=== PATIENT | female | born 1955 | race African-American/Black ===

== ENCOUNTER 2017-09-05 13:46 | Inpatient (IN) | payer MEDICAID ==
[2017-09-05] MEDS ORDERED: Aspirin 325 mg EC PO ONE (14:28)
[2017-09-05] MEDS ORDERED: Pantoprazole 40 mg EC Tab PO STA (14:29)
[2017-09-05] MEDS ORDERED: Clindamycin 600mg/50mL 600 MG/50 ML BAG IV ONE (14:30)
[2017-09-05] MEDS ORDERED: Levofloxacin 500mg/100mL 500 MG/100 ML BAG IV ONE ×2 (14:30→15:56)
[2017-09-05] MEDS ORDERED: Piperacillin Sodium/Tazobact 2.25 gm Vial IV ONE (14:44)
[2017-09-05 14:51] LABS: % BASOPHILS 0.9 % (0.0-2.0); % EOSINOPHILS 3.3 % (0.0-5.0); % MONOCYTES 7.5 % (2.0-10.0); % NEUTROPHILS 43.3 % (40.0-80.0); BASOPHILE ABSOLUTE 0.1 Th/cumm (0-0.2); EOSINOPHILE ABSOLUTE 0.2 Th/cmm (0.1-0.4); HEMATOCRIT 35.2 % (41.0-60); HEMOGLOBIN 11.2 gm/dL (12-16); LYMPHOCYTE ABSOLUTE 2.9 Th/cmm (1.5-3.0); MEAN CELL VOLUME 99.8 fl (81-100); MEAN CORPUSCULAR HEMOGLOBIN 31.6 pg (27.0-31.0); MEAN CORPUSCULAR HGB CONC 31.7 pg (28.0-36.0); MONOCYTE ABSOLUTE 0.5 Th/cmm (0.3-1.0); NEUTROPHILE ABSOLUTE 2.9 Th/cmm (1.8-8.0); PLATELET COUNT 98 Th/cmm (150-400); RED BLOOD COUNT 3.53 Mil/cmm (3.80-5.10); RED CELL DISTRIBUTION WIDTH 14.5 % (11.5-20.0); WHITE BLOOD COUNT 6.6 Th/cmm (4.8-10.8)
--- NOTE | 2017-09-05 14:55 | Diagnostic Imaging Report ---
CHEST X-RAY: AP view INDICATION: Sepsis COMPARISON: None FINDINGS: Chronic lung changes are seen with no focal consolidation or effusions. Heart size is normal. Multiple chronic appearing right rib fractures are noted. Atherosclerosis is noted. Spinal scoliosis is noted. IMPRESSION: Chronic lung changes with no focal consolidation identified Atherosclerotic vascular disease. Multiple old right rib fractures. No evidence of pneumothorax.
[2017-09-05] MEDS ORDERED: Clindamycin 150 mg/mL 4mL Vial ONE ×2 (15:32→21:43)
[2017-09-05] MEDS ORDERED: Pantoprazole 40 mg EC Tab PO ONE (15:32)
[2017-09-05 15:48] LABS: CHOLESTEROL 71 mg/dL (<200); HDL -HIGH DENSITY LIPOPROTEIN 42 mg/dL (23-92); TRIGLYCERIDES 62 mg/dL (<150)
[2017-09-05 15:51] LABS: ALB/GLOB RATIO 0.5 (1.0-1.8); ALBUMIN 2.8 gm/dL (3.7-5.3); ALKALINE PHOSPHATASE 129 U/L (34-104); ANION GAP 11.5 (7.0-16.0); BILIRUBIN,TOTAL 0.3 mg/dL (0.3-1.0); BUN - UREA NITROGEN 18 mg/dL (7-25); CALCIUM SERUM 8.5 mg/dL (8.6-10.3); CARBON DIOXIDE 19.4 mEq/L (21.0-31.0); CHLORIDE 107 mEq/L (98-107); GFR AFRICAN-AMERICAN > 60.0 ml/min (>90); GFR NON AFRICAN-AMERICAN 59.3 ml/min; GLUCOSE 105 mg/dL (70-105); POTASSIUM SERUM 4.9 mEq/L (3.5-5.1); SGOT 21 U/L (13-39); SGPT/ALT 8 U/L (7-52); SODIUM SERUM 133 mEq/L (136-145); TOTAL PROTEIN,SERUM 8.2 gm/dL (6.0-8.3)
--- NOTE | 2017-09-05 16:26 | ER Physician Documentation ---
DATE OF SERVICE: 09/05/2017 The history was taken by talking to the patient. The patient was sent from [facility] by Dr. Guardado. The patient has a gangrene in the left foot and hence the patient was sent over here. The patient has systemic lupus erythematosus and other diagnoses that will be mentioned below. HISTORY OF PRESENT ILLNESS: The patient said that she has systemic lupus erythematosus, leading to amputation of both her upper arm 2 years ago. A few months apart she had amputation in the right above knee that was done many years ago and she has gangrene infection, cellulitis in the left leg. There is a second toe gangrene is present. The patient is known to have hypertension. She has systemic lupus erythematosus. She was triaged by the nurse. She carries herself many diagnoses and I think instead of repeating this now and then in the final diagnoses, I would put it most of the time in the final diagnoses except that she has hyperlipidemia, anxiety disorder, GERD, polyneuropathy as well as chronic pain type syndrome. REVIEW OF SYSTEMS: EYES: No history of double vision, blurring blindness. CENTRAL NERVOUS SYSTEM: No history of TIA, stroke, encephalitis, meningitis. PULMONARY: No history of pneumonia, TB, pulmonary embolism, COPD, emphysema, bronchitis. 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 CARDIAC: She does not have any myocardial infarction, rheumatic fever, valvular heart disease, pericardial disease, cardiomyopathy. She has pain syndrome for which she takes fentanyl patch 25 mcg every 72 hours for pain management. GENITOURINARY: No burning, frequency, dysuria. She said she had a G-tube before, but now there is no G-tube. No history of urinary tract infection. ENDOCRINE: Liver veloz, the patient has no liver disease. No history of cirrhotic liver. The patient has no ascites. All other systems review essentially as negative. CURRENT MEDICATIONS: Include calcium 500 mg 1 tablet p.r.n., clindamycin 150 mg 2 capsules t.i.d. for 10 days for left foot infection plus fentanyl patch 25 mcg every 72 hours for pain management. She takes Restoril 15 mg p.o. at bedtime for insomnia. She takes basic metabolic panel every Tuesday that has been ordered for her. PHYSICAL EXAMINATION: GENERAL: The patient appears to be awake, alert, oriented, not in any acute cardiorespiratory distress. She is awake. She is talking, she walks with the help of the cane. She has a tinea vesicular over the body. She has lupus erythematosus. She has gangrene in both hands below the elbows and both upper extremities and in the right lower extremity above knee amputation. CHEST: Clear. Trachea being central. Fairly good air entry in both lungs. HEART: Reveals normal heart sounds. No fourth heart sounds. Second heart sound is physiologically split. Third heart sound is absent. ABDOMEN: Soft, benign and negative. CENTRAL NERVOUS SYSTEM: Within normal limits. CLINICAL IMPRESSION: The patient has presented with gangrene in the left second toe and the patient also has a cellulitis with discharges around that area, probably that needs to be Gram stain and cultured. Her other diagnoses include systemic lupus erythematosus, unspecified. She has diabetes mellitus without any complication. She has chronic pain syndrome. She has atherosclerotic heart disease of [place] coronary arteries without angina pectoris, unspecified viral hepatitis C. She has partial traumatic amputation of the left knee. Right lower leg encounter gangrene, not elsewhere notified. She has anemia, unspecified, hyperlipidemia, unspecified, anxiety disorder, unspecified. Gastroesophageal reflux disease, esophagitis, polyneuropathy, unspecified; nicotine dependence. She used to smoke 2 cigarettes a day in the past. The patient has been taking Neurontin 300 mg tablet by mouth 3 times a day plus [place] tablets as needed, Protonix tablets by mouth, Tylenol for pain, Vitamin C tablet, zinc sulfate tablet. She has a foot cradle for wound management. The patient is also taking atorvastatin, calcium tablet, clonidine tablet, Dulcolax tablet, ferrous sulfate tablet, etc. The patient has atherosclerotic heart disease. She has dyslipidemia. She has GERD type symptoms, and viral hepatitis. She never had any hepatic, she never was drinking alcohol and never went into hepatic or delirium tremens. Partial traumatic amputation to the knee level, right lower leg, initial encounter. She has anemia. She has anxiety disorder, GERD, polyneuropathy and nicotine dependence. This is the first report, and the second report once we get the report of the labs, etc. JOB# [id number]
[2017-09-05 17:43] LABS: URINE BILIRUBIN NEGATIVE (NEGATIVE); URINE BLOOD SMALL (NEGATIVE); URINE GLUCOSE (UA) NEGATIVE (NEGATIVE); URINE KETONE NEGATIVE (NEGATIVE); URINE LEUKOCYTE ESTERASE SMALL (NEGATIVE); URINE MICROSCOPIC INDICATED? YES; URINE NITRATE NEGATIVE (NEGATIVE); URINE PH 6.5 (4.6 - 8.0); URINE PROTEIN TRACE mg/dL (NEGATIVE); URINE SOURCE CLEAN C; URINE UROBILINOGEN 0.2 E.U./dL (0.2 - 1.0)
[2017-09-05 17:47] LABS: URINE CLARITY HAZY (CLEAR); URINE COLOR YELLOW
[2017-09-05 17:50] LABS: URINE BACTERIA FEW /hpf (NONE SEEN); URINE EPITHELIAL CELLS OCCASIONAL /lpf (FEW)
[2017-09-05] MEDS: HYDROmorphone 2 mg/mL 1mL Vial IVP PRN (20:53)
[2017-09-05] MEDS ORDERED: Magnesium Hydroxide (MOM) 30 mL UDC PO PRN (20:59)
[2017-09-05] MEDS ORDERED: Albuterol Nebulizer 2.5mg/3mL HHN PRN (20:59)
[2017-09-05] MEDS ORDERED: Fluticasone Propionate 0.05mg/Actuation 16gm Nasal Spray NS PRN (20:59)
[2017-09-05] MEDS ORDERED: MELATONIN 1 MG PO SCH (21:00)
--- NOTE | 2017-09-05 21:22 | History and Physical ---
History of Present Illness - HPI Chief Complaint: left foot non healing wound ozzing, foul odor HPI: This is a 62 year old female who is a resident of [facility] who has a history of left foot wound that has been non healing associated with food odor and drainage. Vital Signs: Last Vital Signs Temp 97.2 F 09/05/17 20:25 Pulse 85 09/05/17 20:25 Resp 19 09/05/17 20:25 BP 150/44 09/05/17 20:25 Pulse Ox 100 09/05/17 19:51 Past Medical History Other History: sle cellulitis left leg gangrene gerd anxiety hyperlipidemia anxiety polyneuropathy chronic pain syndrome - Past Surgical History Past Surgical History: Other (amputation upper extremity rbka) Family Medical History - Family Member Mother History Unknown: Yes Social History Smoke: No Alcohol: None Drugs: None Lives: Residential - Medications Home Medications: Home Medication Medication Instructions Recorded Type Acetaminophen [Tylenol] 650 mg PO DAILY 09/05/17 History Acetaminophen [Tylenol] 650 mg PO Q4HR PRN 09/05/17 History Albuterol Nebulizer 2.5mg/3mL 2.5 mg IH Q6HR PRN 09/05/17 History [Albuterol Neb UD*] Ascorbic Acid [Vitamin C] 500 mg PO DAILY 09/05/17 History Atorvastatin Calcium [Lipitor] 40 mg PO HS 09/05/17 History Bisacodyl [Dulcolax 10 Mg Supp] 10 mg RC DAILY PRN 09/05/17 History Calcium Carbonate [Calcium] 1 tab PO DAILY 09/05/17 History Clonidine HCl [Catapres] 0.1 mg PO DAILY 09/05/17 History Docusate Sodium [Dok] 100 mg PO DAILY 09/05/17 History Ferrous Sulfate [Iron] 1 tab PO DAILY 09/05/17 History Fluticasone Propionate Nasal 1 spr NS DAILY PRN 09/05/17 History [Flonase] Gabapentin [Neurontin] 300 mg PO TID 09/05/17 History Hydrocodone/APAP 10 mg/325 mg 1 tab PO Q8H PRN 09/05/17 History [[place] 10 mg/325 mg] Magnesium Hydroxide [Milk of 30 ml PO HS PRN 09/05/17 History Magnesia] Melatonin 1 mg PO HS 09/05/17 History Morphine Sulfate 15 mg PO Q12H 09/05/17 History Multivitamin w/ Minerals 1 tab PO DAILY 09/05/17 History [Theragran M] Pantoprazole Sodium 40 mg PO DAILY 09/05/17 History Temazepam [Restoril*] 15 mg PO HS 09/05/17 History Zinc Sulfate 220 mg PO DAILY 09/05/17 History fentaNYL 25 mcg/hr [Duragesic 25 25 mcg TD Q72HR 09/05/17 History mcg/hr Tdm Patch] hydrOXYzine [Atarax*] 25 mg PO Q8HR PRN 09/05/17 History - Allergies Allergies/Adverse Reactions: Allergies Allergy/AdvReac Type Severity Reaction Status Date / Time No Known Allergies Allergy Verified 09/05/17 14:55 Review of Systems - Review of Systems Constitutional: Report: No Significant Eyes: Report: No Significant ENT: Report: No Significant Respiratory: Report: No Significant Cardiovascular: Report: No Significant Gastrointestinal: Report: No Significant Genitourinary: Report: No Significant Musculoskeletal: Report: No Significant Neurological: Report: No Significant Physical Exam - Physical Exam HEENT: Report: Ears Nose Throat within normal limits Neck: Report: Within normal limits Cardiovascular Systems: Report: +s1/s2 noted, Regular, Rate and Rhythm Respiratory: Report: Breath Sounds are within normal limits Back: Report: Inspection of back is within normal limits. Extremities: Report: Non-tender to palpation. - Assessment Assessment: Current Active Problems Problem Status Onset LEFT LOWER EXTREMITY GANGRENE Acute sle gerd anxiety hyperlipidemia anxiety polyneuropathy chronic pain syndrome - Plan Plan: ivabx wound/surgical consult continue current orders
[2017-09-05] MEDS ORDERED: Piperacillin Sodium/Tazobact 3.375 gm Vial IV ONE (21:43)
[2017-09-05] MEDS: Clindamycin 600mg/50mL 600 MG/50 ML BAG IV SCH (22:40)
[2017-09-05] MEDS: Atorvastatin Calcium 10 MG TAB PO SCH (23:24)
[2017-09-06] MEDS: HYDROmorphone 2 mg/mL 1mL Vial IVP PRN ×2 (02:52→13:41)
[2017-09-06 03:20] VITALS: BP 152/45
[2017-09-06] MEDS ORDERED: Pneumococcal Vaccine 0.5 mL Vial IM ONE (03:31)
[2017-09-06] MEDS ORDERED: Clindamycin 150 mg/mL 4mL Vial ONE (04:50)
[2017-09-06] MEDS ORDERED: Piperacillin Sodium/Tazobact 3.375 gm Vial IV ONE (04:50)
[2017-09-06] MEDS: Clindamycin 600mg/50mL 600 MG/50 ML BAG IV SCH ×3 (05:39→21:09)
[2017-09-06] MEDS ORDERED: VTE Chemical Prophylaxis Screen/Admission MC PRN (08:15)
[2017-09-06] MEDS ORDERED: Probiotic Screen MC PRN (09:15)
[2017-09-06] MEDS: Pantoprazole 40 mg EC Tab PO SCH (09:26)
[2017-09-06] MEDS: Ferrous Sulfate 325 MG TAB PO SCH (09:27)
[2017-09-06] MEDS: Multivitamin w/ Minerals Tab PO SCH (09:27)
[2017-09-06] MEDS: fentaNYL 25 mcg/hr Tdm Patch TD SCH (09:28)
[2017-09-06] MEDS ORDERED: Influenza Vaccine 0.5 mL Syr IM ONE (09:31)
[2017-09-06] MEDS: HYDROmorphone 1 mg/mL 1mL Syr IVP PRN ×2 (09:51→23:08)
--- NOTE | 2017-09-06 11:32 | Diagnostic Imaging Report ---
Left foot 3 views Indication: Gangrene Comparison: none Findings: Osteopenia is noted limiting the examination. There are soft tissue defects and swelling involving the first and second rays. There is suggestion of areas of bony demineralization involving the second phalanges. There may be subtle fractures throughout these regions also. No dislocation. Mild to moderate joint degenerative changes are noted. Generalized soft tissue prominence is noted. Atherosclerosis is noted. Impression: Osteopenia limiting the exam. There are soft tissue defects and areas of soft tissue swelling involving the first and second rays with suggestion of areas of bony mineralization of the second phalanges. Osteomyelitis of the second phalanges cannot be excluded. There may also be subtle fractures of the second phalanges. Please correlate with clinical findings. Consider further assessment of these findings with MRI examination. Mild degenerative changes. In the setting of trauma, if clinical symptoms persist and there is continued concern for an occult fracture, follow up exams in 5-7 days is suggested.
--- NOTE | 2017-09-06 12:33 | Internal Medicine Prog Note ---
Internal Medicine Subjective - Subjective Service Date: 09/06/17 Patient seen and examined:: with staff Patient is:: awake, verbal Per staff patient has:: tolerating meds Internal Medicine Objective - Results Result Diagrams: 09/05/17 15:00 09/05/17 15:00 Recent Labs: Laboratory Last Values WBC 6.6 Th/cmm (4.8-10.8) 09/05/17 15:00 RBC 3.53 Mil/cmm (3.80-5.10) L 09/05/17 15:00 Hgb 11.2 gm/dL (12-16) L 09/05/17 15:00 Hct 35.2 % (41.0-60) L 09/05/17 15:00 MCV 99.8 fl (81-100) 09/05/17 15:00 MCH 31.6 pg (27.0-31.0) H 09/05/17 15:00 MCHC Differential 31.7 pg (28.0-36.0) 09/05/17 15:00 RDW 14.5 % (11.5-20.0) 09/05/17 15:00 Plt Count 98 Th/cmm (150-400) L 09/05/17 15:00 MPV 8.0 fl 09/05/17 15:00 Neutrophils % 43.3 % (40.0-80.0) 09/05/17 15:00 Lymphocytes % 45.0 % (20.0-50.0) 09/05/17 15:00 Monocytes % 7.5 % (2.0-10.0) 09/05/17 15:00 Eosinophils % 3.3 % (0.0-5.0) 09/05/17 15:00 Basophils % 0.9 % (0.0-2.0) 09/05/17 15:00 Sodium 133 mEq/L (136-145) L 09/05/17 15:00 Potassium 4.9 mEq/L (3.5-5.1) 09/05/17 15:00 Chloride 107 mEq/L (98-107) 09/05/17 15:00 Carbon Dioxide 19.4 mEq/L (21.0-31.0) L 09/05/17 15:00 Anion Gap 11.5 (7.0-16.0) 09/05/17 15:00 BUN 18 mg/dL (7-25) 09/05/17 15:00 Creatinine 1.0 mg/dL (0.6-1.2) 09/05/17 15:00 Est GFR ( Amer) > 60.0 ml/min (>90) 09/05/17 15:00 Est GFR (Non-Af Amer) 59.3 ml/min 09/05/17 15:00 BUN/Creatinine Ratio 18.0 09/05/17 15:00 Glucose 105 mg/dL (70-105) 09/05/17 15:00 Whole Bld Lactic Acid 0.81 mmol/L (0.60-1.99) 09/05/17 15:00 Calcium 8.5 mg/dL (8.6-10.3) L 09/05/17 15:00 Magnesium 2.0 mg/dL (1.9-2.7) 09/05/17 15:00 Total Bilirubin 0.3 mg/dL (0.3-1.0) 09/05/17 15:00 AST 21 U/L (13-39) 09/05/17 15:00 ALT 8 U/L (7-52) 09/05/17 15:00 Alkaline Phosphatase 129 U/L (34-104) H 09/05/17 15:00 C-Reactive Protein 3.4 mg/dL (0.0-0.9) H 09/05/17 15:00 B-Natriuretic Peptide 158.0 pg/mL (5.0-100.0) H 09/05/17 15:00 Total Protein 8.2 gm/dL (6.0-8.3) 09/05/17 15:00 Albumin 2.8 gm/dL (3.7-5.3) L 09/05/17 15:00 Globulin 5.4 gm/dL 09/05/17 15:00 Albumin/Globulin Ratio 0.5 (1.0-1.8) L 09/05/17 15:00 Triglycerides 62 mg/dL (<150) 09/05/17 15:00 Cholesterol 71 mg/dL (<200) 09/05/17 15:00 LDL Cholesterol Direct 16 mg/dL (75-193) L 09/05/17 15:00 HDL Cholesterol 42 mg/dL (23-92) 09/05/17 15:00 TSH 1.71 uIU/ml (0.34-5.60) 09/05/17 15:00 Urine Source CLEAN C 09/05/17 14:26 Urine Color YELLOW 09/05/17 14:26 Urine Clarity HAZY (CLEAR) 09/05/17 14:26 Urine pH 6.5 (4.6 - 8.0) 09/05/17 14:26 Ur Specific [place] 1.010 (1.005-1.030) 09/05/17 14:26 Urine Protein TRACE mg/dL (NEGATIVE) 09/05/17 14:26 Urine Glucose (UA) NEGATIVE mg/dL (NEGATIVE) 09/05/17 14:26 Urine Ketones NEGATIVE mg/dL (NEGATIVE) 09/05/17 14:26 Urine Blood SMALL (NEGATIVE) H 09/05/17 14:26 Urine Nitrate NEGATIVE (NEGATIVE) 09/05/17 14:26 Urine Bilirubin NEGATIVE (NEGATIVE) 09/05/17 14:26 Urine Urobilinogen 0.2 E.U./dL (0.2 - 1.0) 09/05/17 14:26 Ur Leukocyte Esterase SMALL (NEGATIVE) H 09/05/17 14:26 Urine RBC 5-10 /hpf (0-5) H 09/05/17 14:26 Urine WBC 6-10 /hpf (0-5) H 09/05/17 14:26 Ur Epithelial Cells OCCASIONAL /lpf (FEW) 09/05/17 14:26 Urine Bacteria FEW /hpf (NONE SEEN) 09/05/17 14:26 - Physical Exam Vitals and I&O: Vital Signs Temp 97.7 F 09/06/17 12:01 Pulse 65 09/06/17 12:01 Resp 17 09/06/17 12:01 BP 145/60 09/06/17 12:01 Pulse Ox 99 09/06/17 12:01 Intake & Output 09/05/17 09/06/17 09/06/17 18:59 06:59 18:59 Intake Total 300 Balance 300 Weight (lbs) 110 lb Intake: Intake, IV Amount 100 Clindamycin 600mg/50mL 50 600 mg In 50 ml @ 100 mls /hr IV Q8HR [facility] Rx#: [id number] Piperacillin Sodium/ 50 Tazobact 3.375 gm In Sodium Chloride 0.9% 50 ml @ 100 mls/hr IV Q6HR [facility] Rx#:[id number] Oral 200 Other: # Voids 2 # Bowel Movements 0 Stool Characteristics Formed Active Medications: Current Medications Acetaminophen (Tylenol) 650 mg PO DAILY [facility] Stop: 11/05/17 08:59 Last Admin: 09/06/17 09:27 Dose: 650 mg Acetaminophen (Tylenol) 650 mg PO Q4HR PRN PRN Reason: Mild Pain or Fever >101 Stop: 11/04/17 20:58 Acetaminophen/Hydrocodone Bitart ([place] 10 Mg/325 Mg) 1 tab PO Q8H PRN PRN Reason: MOD/SEVERE PAIN Stop: 11/04/17 20:58 Albuterol Sulfate (Albuterol 2.5mg/3ml Neb Ud) 2.5 mg HHN Q6HR PRN PRN Reason: sob/WHEEZING/CONGESTION Stop: 11/04/17 20:58 Ascorbic Acid (Vitamin C) 500 mg PO DAILY [facility] Stop: 11/05/17 08:59 Last Admin: 09/06/17 09:27 Dose: 500 mg Atorvastatin Calcium (Lipitor) 40 mg PO HS [facility] Stop: 11/04/17 20:59 Last Admin: 09/05/17 23:24 Dose: 40 mg Bisacodyl (Dulcolax 10 Mg Supp) 10 mg RC DAILY PRN PRN Reason: IF MOM INEFFECTIVE FOR CONSTIP Stop: 11/04/17 20:58 Calcium Carbonate (Os-Won) 500 mg PO DAILY [facility] Stop: 11/05/17 08:59 Last Admin: 09/06/17 09:26 Dose: 500 mg Docusate Sodium (Colace) 100 mg PO DAILY [facility] Stop: 11/05/17 08:59 Last Admin: 09/06/17 09:26 Dose: 100 mg Fentanyl (Duragesic 25 Mcg/Hr Tdm Patch) 1 patch TD Q72HR [facility] PRN Reason: Protocol Stop: 11/05/17 09:59 Last Admin: 09/06/17 09:28 Dose: 1 patch Ferrous Sulfate (Iron) 325 mg PO DAILY [facility] Stop: 11/05/17 08:59 Last Admin: 09/06/17 09:27 Dose: 325 mg Fluticasone Propionate (Flonase) 1 spr NS DAILY PRN PRN Reason: Congestion Stop: 11/04/17 20:58 Gabapentin (Neurontin) 300 mg PO TID [facility] Stop: 11/04/17 20:59 Last Admin: 09/06/17 09:26 Dose: 300 mg Hydromorphone HCl (Dilaudid) 2 mg IVP Q4HR PRN PRN Reason: Pain (Severe) Stop: 11/04/17 20:05 Last Admin: 09/06/17 02:52 Dose: 2 mg Hydromorphone HCl (Dilaudid) 1 mg IVP Q4HR PRN PRN Reason: Pain (Moderate) Stop: 11/04/17 20:05 Last Admin: 09/06/17 09:51 Dose: 1 mg Hydroxyzine HCl (Atarax) 25 mg PO Q8HR PRN; Protocol PRN Reason: Itching Stop: 11/04/17 20:58 Clindamycin Phosphate (Cleocin Pb) 600 mg in 50 mls @ 100 mls/hr IV Q8HR [facility] Stop: 11/04/17 20:59 Last Admin: 09/06/17 05:39 Dose: 100 mls/hr Levofloxacin (Levaquin Pb) 500 mg in 100 mls @ 100 mls/hr IV Q24HR [facility] Stop: 11/05/17 20:59 Piperacillin Sod/Tazobactam (Sod 3.375 gm/ Sodium Chloride) 50 mls @ 100 mls/ hr IV Q6HR [facility] Stop: 11/05/17 00:00 Last Admin: 09/06/17 06:54 Dose: 100 mls/hr Lactobacillus Rhamnosus (Culturelle 15b) 1 each PO DAILY [facility] Stop: 11/06/17 08:59 Magnesium Hydroxide (Milk Of Magnesia) 30 ml PO HS PRN PRN Reason: Constipation Stop: 11/04/17 20:58 Miscellaneous (Zosyn Iv Per Pharmacy) 1 ea MC PRN PRN PRN Reason: PROTOCOL Stop: 11/04/17 20:05 Miscellaneous (Melatonin [Melatonin]) 1 mg PO HS [facility] Stop: 11/04/17 20:59 Miscellaneous (Vte [employer] Prophylaxis Screen/ Admission) 1 ea [facility] PRN PRN PRN Reason: PROTOCOL Stop: 11/05/17 08:14 Miscellaneous (Probiotic Screen) 1 ea MC PRN PRN PRN Reason: PROTOCOL Stop: 11/05/17 09:14 Morphine Sulfate (Morphine Ir) 15 mg PO Q12H [facility] Stop: 11/04/17 20:59 Last Admin: 09/06/17 09:27 Dose: 15 mg Ondansetron HCl (Zofran) 4 mg IV Q6H PRN PRN Reason: Nausea / Vomiting Stop: 11/04/17 20:05 Pantoprazole Sodium (Protonix) 40 mg PO DAILY [facility] Stop: 11/05/17 08:59 Last Admin: 09/06/17 09:26 Dose: 40 mg Temazepam (Restoril) 15 mg PO HS PRN; Protocol PRN Reason: Insomnia Stop: 11/04/17 20:21 Zinc Sulfate (Zinc Sulfate) 220 mg PO DAILY [facility] Stop: 11/05/17 08:59 Last Admin: 09/06/17 09:27 Dose: 220 mg General: alert HEENT: NC/AT, PERRLA Neck: Supple Lungs: CTAB Abdomen: soft, non-tender Neurological: alert Internal Medicine Assmt/Plan - Assessment Assessment: sle gerd anxiety hyperlipidemia anxiety polyneuropathy chronic pain syndrome - Plan Plan: wound care ivabx continue current orders
--- NOTE | 2017-09-06 16:43 | General Progress Note ---
Subjective - Review of Systems Service Date: 09/06/17 Events since last encounter: saw picture in chart but refusing refusing to be examined will try again tomorrow Objective - Results Result Diagrams: 09/05/17 15:00 09/05/17 15:00 Recent Labs: Laboratory Last Values WBC 6.6 Th/cmm (4.8-10.8) 09/05/17 15:00 RBC 3.53 Mil/cmm (3.80-5.10) L 09/05/17 15:00 Hgb 11.2 gm/dL (12-16) L 09/05/17 15:00 Hct 35.2 % (41.0-60) L 09/05/17 15:00 MCV 99.8 fl (81-100) 09/05/17 15:00 MCH 31.6 pg (27.0-31.0) H 09/05/17 15:00 MCHC Differential 31.7 pg (28.0-36.0) 09/05/17 15:00 RDW 14.5 % (11.5-20.0) 09/05/17 15:00 Plt Count 98 Th/cmm (150-400) L 09/05/17 15:00 MPV 8.0 fl 09/05/17 15:00 Neutrophils % 43.3 % (40.0-80.0) 09/05/17 15:00 Lymphocytes % 45.0 % (20.0-50.0) 09/05/17 15:00 Monocytes % 7.5 % (2.0-10.0) 09/05/17 15:00 Eosinophils % 3.3 % (0.0-5.0) 09/05/17 15:00 Basophils % 0.9 % (0.0-2.0) 09/05/17 15:00 Sodium 133 mEq/L (136-145) L 09/05/17 15:00 Potassium 4.9 mEq/L (3.5-5.1) 09/05/17 15:00 Chloride 107 mEq/L (98-107) 09/05/17 15:00 Carbon Dioxide 19.4 mEq/L (21.0-31.0) L 09/05/17 15:00 Anion Gap 11.5 (7.0-16.0) 09/05/17 15:00 BUN 18 mg/dL (7-25) 09/05/17 15:00 Creatinine 1.0 mg/dL (0.6-1.2) 09/05/17 15:00 Est GFR ( Amer) > 60.0 ml/min (>90) 09/05/17 15:00 Est GFR (Non-Af Amer) 59.3 ml/min 09/05/17 15:00 BUN/Creatinine Ratio 18.0 09/05/17 15:00 Glucose 105 mg/dL (70-105) 09/05/17 15:00 Whole Bld Lactic Acid 0.81 mmol/L (0.60-1.99) 09/05/17 15:00 Calcium 8.5 mg/dL (8.6-10.3) L 09/05/17 15:00 Magnesium 2.0 mg/dL (1.9-2.7) 09/05/17 15:00 Total Bilirubin 0.3 mg/dL (0.3-1.0) 09/05/17 15:00 AST 21 U/L (13-39) 09/05/17 15:00 ALT 8 U/L (7-52) 09/05/17 15:00 Alkaline Phosphatase 129 U/L (34-104) H 09/05/17 15:00 C-Reactive Protein 3.4 mg/dL (0.0-0.9) H 09/05/17 15:00 B-Natriuretic Peptide 158.0 pg/mL (5.0-100.0) H 09/05/17 15:00 Total Protein 8.2 gm/dL (6.0-8.3) 09/05/17 15:00 Albumin 2.8 gm/dL (3.7-5.3) L 09/05/17 15:00 Globulin 5.4 gm/dL 09/05/17 15:00 Albumin/Globulin Ratio 0.5 (1.0-1.8) L 09/05/17 15:00 Triglycerides 62 mg/dL (<150) 09/05/17 15:00 Cholesterol 71 mg/dL (<200) 09/05/17 15:00 LDL Cholesterol Direct 16 mg/dL (75-193) L 09/05/17 15:00 HDL Cholesterol 42 mg/dL (23-92) 09/05/17 15:00 TSH 1.71 uIU/ml (0.34-5.60) 09/05/17 15:00 Urine Source CLEAN C 09/05/17 14:26 Urine Color YELLOW 09/05/17 14:26 Urine Clarity HAZY (CLEAR) 09/05/17 14:26 Urine pH 6.5 (4.6 - 8.0) 09/05/17 14:26 Ur Specific [place] 1.010 (1.005-1.030) 09/05/17 14:26 Urine Protein TRACE mg/dL (NEGATIVE) 09/05/17 14:26 Urine Glucose (UA) NEGATIVE mg/dL (NEGATIVE) 09/05/17 14:26 Urine Ketones NEGATIVE mg/dL (NEGATIVE) 09/05/17 14:26 Urine Blood SMALL (NEGATIVE) H 09/05/17 14:26 Urine Nitrate NEGATIVE (NEGATIVE) 09/05/17 14:26 Urine Bilirubin NEGATIVE (NEGATIVE) 09/05/17 14:26 Urine Urobilinogen 0.2 E.U./dL (0.2 - 1.0) 09/05/17 14:26 Ur Leukocyte Esterase SMALL (NEGATIVE) H 09/05/17 14:26 Urine RBC 5-10 /hpf (0-5) H 09/05/17 14:26 Urine WBC 6-10 /hpf (0-5) H 09/05/17 14:26 Ur Epithelial Cells OCCASIONAL /lpf (FEW) 09/05/17 14:26 Urine Bacteria FEW /hpf (NONE SEEN) 09/05/17 14:26 - Physical Exam Vitals and I&O: Vital Signs Temp 97.7 F 09/06/17 12:01 Pulse 65 09/06/17 12:01 Resp 17 09/06/17 12:01 BP 145/60 09/06/17 12:01 Pulse Ox 99 09/06/17 12:01 Intake & Output 09/05/17 09/06/17 09/06/17 18:59 06:59 18:59 Intake Total 350 50 Balance 350 50 Weight (lbs) 49.895 kg 49.895 kg Intake: Intake, IV Amount 150 50 Clindamycin 600mg/50mL 100 600 mg In 50 ml @ 100 mls /hr IV Q8HR [facility] Rx#: [id number] Piperacillin Sodium/ 50 50 Tazobact 3.375 gm In Sodium Chloride 0.9% 50 ml @ 100 mls/hr IV Q6HR [facility] Rx#:[id number] Oral 200 Other: # Voids 2 # Bowel Movements 0 Stool Characteristics Formed Active Medications: Current Medications Acetaminophen (Tylenol) 650 mg PO DAILY [facility] Stop: 11/05/17 08:59 Last Admin: 09/06/17 09:27 Dose: 650 mg Acetaminophen (Tylenol) 650 mg PO Q4HR PRN PRN Reason: Mild Pain or Fever >101 Stop: 11/04/17 20:58 Acetaminophen/Hydrocodone Bitart ([place] 10 Mg/325 Mg) 1 tab PO Q8H PRN PRN Reason: MOD/SEVERE PAIN Stop: 11/04/17 20:58 Albuterol Sulfate (Albuterol 2.5mg/3ml Neb Ud) 2.5 mg HHN Q6HR PRN PRN Reason: sob/WHEEZING/CONGESTION Stop: 11/04/17 20:58 Ascorbic Acid (Vitamin C) 500 mg PO DAILY [facility] Stop: 11/05/17 08:59 Last Admin: 09/06/17 09:27 Dose: 500 mg Atorvastatin Calcium (Lipitor) 40 mg PO HS [facility] Stop: 11/04/17 20:59 Last Admin: 09/05/17 23:24 Dose: 40 mg Bisacodyl (Dulcolax 10 Mg Supp) 10 mg RC DAILY PRN PRN Reason: IF MOM INEFFECTIVE FOR CONSTIP Stop: 11/04/17 20:58 Calcium Carbonate (Os-Won) 500 mg PO DAILY [facility] Stop: 11/05/17 08:59 Last Admin: 09/06/17 09:26 Dose: 500 mg Docusate Sodium (Colace) 100 mg PO DAILY [facility] Stop: 11/05/17 08:59 Last Admin: 09/06/17 09:26 Dose: 100 mg Fentanyl (Duragesic 25 Mcg/Hr Tdm Patch) 1 patch TD Q72HR [facility] PRN Reason: Protocol Stop: 11/05/17 09:59 Last Admin: 09/06/17 09:28 Dose: 1 patch Ferrous Sulfate (Iron) 325 mg PO DAILY [facility] Stop: 11/05/17 08:59 Last Admin: 09/06/17 09:27 Dose: 325 mg Fluticasone Propionate (Flonase) 1 spr NS DAILY PRN PRN Reason: Congestion Stop: 11/04/17 20:58 Gabapentin (Neurontin) 300 mg PO TID [facility] Stop: 11/04/17 20:59 Last Admin: 09/06/17 13:34 Dose: 300 mg Hydromorphone HCl (Dilaudid) 2 mg IVP Q4HR PRN PRN Reason: Pain (Severe) Stop: 11/04/17 20:05 Last Admin: 09/06/17 13:41 Dose: 2 mg Hydromorphone HCl (Dilaudid) 1 mg IVP Q4HR PRN PRN Reason: Pain (Moderate) Stop: 11/04/17 20:05 Last Admin: 09/06/17 09:51 Dose: 1 mg Hydroxyzine HCl (Atarax) 25 mg PO Q8HR PRN; Protocol PRN Reason: Itching Stop: 11/04/17 20:58 Clindamycin Phosphate (Cleocin Pb) 600 mg in 50 mls @ 100 mls/hr IV Q8HR [facility] Stop: 11/04/17 20:59 Last Admin: 09/06/17 13:44 Dose: 100 mls/hr Levofloxacin (Levaquin Pb) 500 mg in 100 mls @ 100 mls/hr IV Q24HR [facility] Stop: 11/05/17 20:59 Piperacillin Sod/Tazobactam (Sod 3.375 gm/ Sodium Chloride) 50 mls @ 100 mls/ hr IV Q6HR [facility] Stop: 11/05/17 00:00 Last Admin: 09/06/17 13:33 Dose: 100 mls/hr Lactobacillus Rhamnosus (Culturelle 15b) 1 each PO DAILY [facility] Stop: 11/06/17 08:59 Magnesium Hydroxide (Milk Of Magnesia) 30 ml PO HS PRN PRN Reason: Constipation Stop: 11/04/17 20:58 Miscellaneous (Zosyn Iv Per Pharmacy) 1 ea MC PRN PRN PRN Reason: PROTOCOL Stop: 11/04/17 20:05 Miscellaneous (Melatonin [Melatonin]) 1 mg PO HS [facility] Stop: 11/04/17 20:59 Miscellaneous (Vte Chemical Prophylaxis Screen/ Admission) 1 ea MC PRN PRN PRN Reason: PROTOCOL Stop: 11/05/17 08:14 Miscellaneous (Probiotic Screen) 1 ea MC PRN PRN PRN Reason: PROTOCOL Stop: 11/05/17 09:14 Morphine Sulfate (Morphine Ir) 15 mg PO Q12H [facility] Stop: 11/04/17 20:59 Last Admin: 09/06/17 09:27 Dose: 15 mg Ondansetron HCl (Zofran) 4 mg IV Q6H PRN PRN Reason: Nausea / Vomiting Stop: 11/04/17 20:05 Pantoprazole Sodium (Protonix) 40 mg PO DAILY [facility] Stop: 11/05/17 08:59 Last Admin: 09/06/17 09:26 Dose: 40 mg Temazepam (Restoril) 15 mg PO HS PRN; Protocol PRN Reason: Insomnia Stop: 11/04/17 20:21 Zinc Sulfate (Zinc Sulfate) 220 mg PO DAILY [facility] Stop: 11/05/17 08:59 Last Admin: 09/06/17 09:27 Dose: 220 mg Assessment/Plan - Problem List Patient Problems: All Active Problems LEFT LOWER EXTREMITY GANGRENE (Acute)
[2017-09-06] MEDS: Atorvastatin Calcium 10 MG TAB PO SCH (21:09)
[2017-09-06] MEDS: Levofloxacin 500mg/100mL 500 MG/100 ML BAG IV SCH (22:44)
--- NOTE | 2017-09-06 23:54 | Consultation ---
DATE OF CONSULTATION: 09/06/2017 REFERRING PHYSICIAN: Dr. Guardado. REASON FOR CONSULTATION: Gangrene of left foot. HISTORY OF PRESENT ILLNESS: The patient is a 62-year-old female with a past medical history of lupus, taking prednisone, right BKA of both upper arms presented to ER with gangrenous left foot. The patient also complained of severe pain. On initial evaluation, the patient's temperature was 97.9 degrees Fahrenheit and WBC count was 6600. Antibiotic veloz, the patient was started on clindamycin, Levaquin. ID consult was called for antibiotic management. PAST MEDICAL HISTORY: Lupus. Amputation of both upper extremities and right BKA. MEDICATIONS: Per medication reconciliation sheet. Antibiotic veloz, the patient is on clindamycin and Levaquin. ALLERGIES: NKDA. FAMILY HISTORY: Noncontributory. SOCIAL HISTORY: The patient lives at snf. No history of smoking, alcohol or drug use. REVIEW OF SYSTEMS: GENERAL: The patient has no fever, no chills. HEENT: No diplopia, no photophobia, no sore throat. RESPIRATORY: No cough, no shortness of breath. CARDIOVASCULAR: No chest pain or palpitation. GASTROINTESTINAL: No nausea, no vomiting, no diarrhea, no constipation. GENITOURINARY: No dysuria. NEUROLOGIC: No headache, no dizziness, no focal weakness. MUSCULOSKELETAL: No muscle pain, complaints of painful left foot with darkening of the skin. PHYSICAL EXAMINATION: VITAL SIGNS: Shows temperature is 97.7, pulse 77, respirations 18, blood pressure 156/68. GENERAL: The patient is comfortable, lying in the bed. HEENT: Head is normocephalic, atraumatic. Oral cavity moist, pink tongue. Eyes: Pallor is present, no icterus. PERRLA, EOMI. NECK: Supple, no JVD, no carotid bruit. Trachea midline. CHEST: Bilateral breath sounds. No crackles or wheezing. HEART: S1, S2 within normal limits. Regular rhythm. No murmur, no gallop. ABDOMEN: Soft, nontender, nondistended. Bowel sounds present. EXTREMITIES: Right BKA, left lower extremity shows gangrenous changes of the forefoot and there is retraction of the second toe with dry gangrene. CENTRAL NERVOUS SYSTEM: Alert, awake, oriented x 3. No focal deficit. LABORATORY DATA: Current lab shows WBC count is 6600, hemoglobin 11.2, hematocrit 35.2, platelets are 98,000. Sodium is 133, potassium 4.9, chloride 107, bicarbonate is 19, BUN is 18, creatinine 1, glucose is 105. Lactic acid 0.81. Chest x-ray shows chronic lung changes. IMPRESSION: 1. Left foot gangrene, secondary to ischemia. 2. Lupus. RECOMMENDATIONS: We will continue same antibiotics clindamycin and Levaquin. Dr. Rodriguez, vascular surgeon on the case. We will ask for the arterial study of left leg. Check the x-ray of the left foot. Antibiotic has lesser role to play. The patient may need surgical intervention. Thank you Dr. Guardado for involving me in taking care of this patient. JOB# [id number]
[2017-09-07] MEDS: Clindamycin 600mg/50mL 600 MG/50 ML BAG IV SCH ×2 (05:46→13:21)
[2017-09-07 06:45] LABS: EOSINOPHILE ABSOLUTE 0.3 Th/cmm (0.1-0.4); HEMATOCRIT 34.6 % (41.0-60); LYMPHOCYTE ABSOLUTE 2.1 Th/cmm (1.5-3.0); MEAN CORPUSCULAR HGB CONC 31.8 pg (28.0-36.0); MEAN PLATELET VOLUME 7.8 fl; MONOCYTE ABSOLUTE 1.2 Th/cmm (0.3-1.0); NEUTROPHILE ABSOLUTE 3.7 Th/cmm (1.8-8.0); RED BLOOD COUNT 3.44 Mil/cmm (3.80-5.10); RED CELL DISTRIBUTION WIDTH 13.5 % (11.5-20.0); WHITE BLOOD COUNT 7.3 Th/cmm (4.8-10.8)
[2017-09-07 06:47] LABS: MEAN CELL VOLUME 100.5 fl (81-100); PLATELET COUNT 277 Th/cmm (150-400)
[2017-09-07 07:13] LABS: ANION GAP 13.3 (7.0-16.0); BUN - UREA NITROGEN 19 mg/dL (7-25); CALCIUM SERUM 9.3 mg/dL (8.6-10.3); CARBON DIOXIDE 21.2 mEq/L (21.0-31.0); CHLORIDE 109 mEq/L (98-107); GLUCOSE 79 mg/dL (70-105); POTASSIUM SERUM 5.5 mEq/L (3.5-5.1); SODIUM SERUM 138 mEq/L (136-145)
[2017-09-07 07:54] LABS: CREATININE - SERUM 0.6 mg/dL (0.6-1.2); GFR AFRICAN-AMERICAN > 60.0 ml/min (>90); GFR NON AFRICAN-AMERICAN > 60.0 ml/min
--- NOTE | 2017-09-07 08:35 | Diagnostic Imaging Report ---
EXAM: Doppler ultrasound examination of the left lower extremity HISTORY: DVT COMPARISON: None FINDINGS: Real-time ultrasound examination of left lower extremity was performed utilizing color Doppler technique. The study demonstrates normal compressibility and augmentation of deep venous system throughout. IMPRESSION: No evidence for deep venous thrombosis left lower extremity.
[2017-09-07] MEDS: Multivitamin w/ Minerals Tab PO SCH (09:30)
[2017-09-07] MEDS: Lactobacillus Rhamnosus GG 15 Billion CFU CAP.SPRINK PO SCH (09:30)
[2017-09-07] MEDS: Ferrous Sulfate 325 MG TAB PO SCH (09:32)
--- NOTE | 2017-09-07 09:46 | General Progress Note ---
Subjective - Review of Systems Events since last encounter: patient awake alert in no acute distress Objective - Results Result Diagrams: 09/07/17 05:50 09/07/17 05:50 Recent Labs: Laboratory Last Values WBC 7.3 Th/cmm (4.8-10.8) 09/07/17 05:50 RBC 3.44 Mil/cmm (3.80-5.10) L 09/07/17 05:50 Hgb 11.0 gm/dL (12-16) L 09/07/17 05:50 Hct 34.6 % (41.0-60) L 09/07/17 05:50 MCV 100.5 fl (81-100) H 09/07/17 05:50 MCH 32.0 pg (27.0-31.0) H 09/07/17 05:50 MCHC Differential 31.8 pg (28.0-36.0) 09/07/17 05:50 RDW 13.5 % (11.5-20.0) 09/07/17 05:50 Plt Count 277 Th/cmm (150-400) D 09/07/17 05:50 MPV 7.8 fl 09/07/17 05:50 Neutrophils % 43.3 % (40.0-80.0) 09/05/17 15:00 Lymphocytes % 45.0 % (20.0-50.0) 09/05/17 15:00 Monocytes % 7.5 % (2.0-10.0) 09/05/17 15:00 Eosinophils % 3.3 % (0.0-5.0) 09/05/17 15:00 Basophils % 0.9 % (0.0-2.0) 09/05/17 15:00 Sodium 138 mEq/L (136-145) 09/07/17 05:50 Potassium 5.5 mEq/L (3.5-5.1) H 09/07/17 05:50 Chloride 109 mEq/L (98-107) H 09/07/17 05:50 Carbon Dioxide 21.2 mEq/L (21.0-31.0) 09/07/17 05:50 Anion Gap 13.3 (7.0-16.0) 09/07/17 05:50 BUN 19 mg/dL (7-25) 09/07/17 05:50 Creatinine 0.6 mg/dL (0.6-1.2) 09/07/17 05:50 Est GFR ( Amer) > 60.0 ml/min (>90) 09/07/17 05:50 Est GFR (Non-Af Amer) > 60.0 ml/min 09/07/17 05:50 BUN/Creatinine Ratio 31.7 09/07/17 05:50 Glucose 79 mg/dL (70-105) 09/07/17 05:50 Whole Bld Lactic Acid 0.81 mmol/L (0.60-1.99) 09/05/17 15:00 Calcium 9.3 mg/dL (8.6-10.3) 09/07/17 05:50 Magnesium 2.0 mg/dL (1.9-2.7) 09/05/17 15:00 Total Bilirubin 0.3 mg/dL (0.3-1.0) 09/05/17 15:00 AST 21 U/L (13-39) 09/05/17 15:00 ALT 8 U/L (7-52) 09/05/17 15:00 Alkaline Phosphatase 129 U/L (34-104) H 09/05/17 15:00 C-Reactive Protein 3.4 mg/dL (0.0-0.9) H 09/05/17 15:00 B-Natriuretic Peptide 158.0 pg/mL (5.0-100.0) H 09/05/17 15:00 Total Protein 8.2 gm/dL (6.0-8.3) 09/05/17 15:00 Albumin 2.8 gm/dL (3.7-5.3) L 09/05/17 15:00 Globulin 5.4 gm/dL 09/05/17 15:00 Albumin/Globulin Ratio 0.5 (1.0-1.8) L 09/05/17 15:00 Triglycerides 62 mg/dL (<150) 09/05/17 15:00 Cholesterol 71 mg/dL (<200) 09/05/17 15:00 LDL Cholesterol Direct 16 mg/dL (75-193) L 09/05/17 15:00 HDL Cholesterol 42 mg/dL (23-92) 09/05/17 15:00 TSH 1.71 uIU/ml (0.34-5.60) 09/05/17 15:00 Urine Source CLEAN C 09/05/17 14:26 Urine Color YELLOW 09/05/17 14:26 Urine Clarity HAZY (CLEAR) 09/05/17 14:26 Urine pH 6.5 (4.6 - 8.0) 09/05/17 14:26 Ur Specific [place] 1.010 (1.005-1.030) 09/05/17 14:26 Urine Protein TRACE mg/dL (NEGATIVE) 09/05/17 14:26 Urine Glucose (UA) NEGATIVE mg/dL (NEGATIVE) 09/05/17 14:26 Urine Ketones NEGATIVE mg/dL (NEGATIVE) 09/05/17 14:26 Urine Blood SMALL (NEGATIVE) H 09/05/17 14:26 Urine Nitrate NEGATIVE (NEGATIVE) 09/05/17 14:26 Urine Bilirubin NEGATIVE (NEGATIVE) 09/05/17 14:26 Urine Urobilinogen 0.2 E.U./dL (0.2 - 1.0) 09/05/17 14:26 Ur Leukocyte Esterase SMALL (NEGATIVE) H 09/05/17 14:26 Urine RBC 5-10 /hpf (0-5) H 09/05/17 14:26 Urine WBC 6-10 /hpf (0-5) H 09/05/17 14:26 Ur Epithelial Cells OCCASIONAL /lpf (FEW) 09/05/17 14:26 Urine Bacteria FEW /hpf (NONE SEEN) 09/05/17 14:26 - Physical Exam Vitals and I&O: Vital Signs Temp 97.8 F 09/07/17 08:08 Pulse 73 09/07/17 09:31 Resp 18 09/07/17 08:08 BP 158/45 09/07/17 08:08 Pulse Ox 97 09/07/17 08:08 Intake & Output 09/06/17 09/07/17 09/07/17 18:59 06:59 18:59 Intake Total 150 350 Balance 150 350 Weight (lbs) 49.895 kg 49.895 kg Intake: Intake, IV Amount 150 150 Clindamycin 600mg/50mL 50 50 600 mg In 50 ml @ 100 mls /hr IV Q8HR [facility] Rx#: [id number] Piperacillin Sodium/ 100 100 Tazobact 3.375 gm In Sodium Chloride 0.9% 50 ml @ 100 mls/hr IV Q6HR [facility] Rx#:[id number] Oral 200 Other: # Voids 3 # Bowel Movements 0 Stool Characteristics Formed Active Medications: Current Medications Acetaminophen (Tylenol) 650 mg PO DAILY [facility] Stop: 11/05/17 08:59 Last Admin: 09/07/17 09:31 Dose: 650 mg Acetaminophen (Tylenol) 650 mg PO Q4HR PRN PRN Reason: Mild Pain or Fever >101 Stop: 11/04/17 20:58 Acetaminophen/Hydrocodone Bitart ([place] 10 Mg/325 Mg) 1 tab PO Q8H PRN PRN Reason: MOD/SEVERE PAIN Stop: 11/04/17 20:58 Albuterol Sulfate (Albuterol 2.5mg/3ml Neb Ud) 2.5 mg HHN Q6HR PRN PRN Reason: sob/WHEEZING/CONGESTION Stop: 11/04/17 20:58 Ascorbic Acid (Vitamin C) 500 mg PO DAILY [facility] Stop: 11/05/17 08:59 Last Admin: 09/07/17 09:34 Dose: 500 mg Atorvastatin Calcium (Lipitor) 40 mg PO HS [facility] Stop: 11/04/17 20:59 Last Admin: 09/06/17 21:09 Dose: 40 mg Bisacodyl (Dulcolax 10 Mg Supp) 10 mg RC DAILY PRN PRN Reason: IF MOM INEFFECTIVE FOR CONSTIP Stop: 11/04/17 20:58 Calcium Carbonate (Os-Won) 500 mg PO DAILY [facility] Stop: 11/05/17 08:59 Last Admin: 09/07/17 09:30 Dose: 500 mg Docusate Sodium (Colace) 100 mg PO DAILY [facility] Stop: 11/05/17 08:59 Last Admin: 09/07/17 09:32 Dose: 100 mg Fentanyl (Duragesic 25 Mcg/Hr Tdm Patch) 1 patch TD Q72HR [facility] PRN Reason: Protocol Stop: 11/05/17 09:59 Last Admin: 09/06/17 09:28 Dose: 1 patch Ferrous Sulfate (Iron) 325 mg PO DAILY [facility] Stop: 11/05/17 08:59 Last Admin: 09/07/17 09:32 Dose: 325 mg Fluticasone Propionate (Flonase) 1 spr NS DAILY PRN PRN Reason: Congestion Stop: 11/04/17 20:58 Gabapentin (Neurontin) 300 mg PO TID [facility] Stop: 11/04/17 20:59 Last Admin: 09/07/17 09:30 Dose: 300 mg Hydromorphone HCl (Dilaudid) 2 mg IVP Q4HR PRN PRN Reason: Pain (Severe) Stop: 11/04/17 20:05 Last Admin: 09/06/17 13:41 Dose: 2 mg Hydromorphone HCl (Dilaudid) 1 mg IVP Q4HR PRN PRN Reason: Pain (Moderate) Stop: 11/04/17 20:05 Last Admin: 09/06/17 23:08 Dose: 1 mg Hydroxyzine HCl (Atarax) 25 mg PO Q8HR PRN; Protocol PRN Reason: Itching Stop: 11/04/17 20:58 Clindamycin Phosphate (Cleocin Pb) 600 mg in 50 mls @ 100 mls/hr IV Q8HR [facility] Stop: 11/04/17 20:59 Last Admin: 09/07/17 05:46 Dose: 100 mls/hr Levofloxacin (Levaquin Pb) 500 mg in 100 mls @ 100 mls/hr IV Q24HR [facility] Stop: 11/05/17 20:59 Last Admin: 09/06/17 22:44 Dose: 100 mls/hr Piperacillin Sod/Tazobactam (Sod 3.375 gm/ Sodium Chloride) 50 mls @ 100 mls/ hr IV Q6HR [facility] Stop: 11/05/17 00:00 Last Admin: 09/07/17 06:52 Dose: 100 mls/hr Lactobacillus Rhamnosus (Culturelle 15b) 1 each PO DAILY [facility] Stop: 11/06/17 08:59 Last Admin: 09/07/17 09:30 Dose: 1 each Magnesium Hydroxide (Milk Of Magnesia) 30 ml PO HS PRN PRN Reason: Constipation Stop: 11/04/17 20:58 Miscellaneous (Zosyn Iv Per Pharmacy) 1 ea MC PRN PRN PRN Reason: PROTOCOL Stop: 11/04/17 20:05 Miscellaneous (Vte Chemical Prophylaxis Screen/ Admission) 1 ea MC PRN PRN PRN Reason: PROTOCOL Stop: 11/05/17 08:14 Miscellaneous (Probiotic Screen) 1 ea MC PRN PRN PRN Reason: PROTOCOL Stop: 11/05/17 09:14 Morphine Sulfate (Morphine Ir) 15 mg PO Q12H [facility] Stop: 11/04/17 20:59 Last Admin: 09/07/17 09:30 Dose: 15 mg Ondansetron HCl (Zofran) 4 mg IV Q6H PRN PRN Reason: Nausea / Vomiting Stop: 11/04/17 20:05 Pantoprazole Sodium (Protonix) 40 mg PO DAILY [facility] Stop: 11/05/17 08:59 Last Admin: 09/06/17 09:26 Dose: 40 mg Temazepam (Restoril) 15 mg PO HS PRN; Protocol PRN Reason: Insomnia Stop: 11/04/17 20:21 Zinc Sulfate (Zinc Sulfate) 220 mg PO DAILY [facility] Stop: 11/05/17 08:59 Last Admin: 09/07/17 09:30 Dose: 220 mg Assessment/Plan - Problem List Patient Problems: All Active Problems LEFT LOWER EXTREMITY GANGRENE (Acute) - Assessment Assessment: Current Active Problems Problem Status Onset LEFT LOWER EXTREMITY GANGRENE Acute sle gerd anxiety hyperlipidemia anxiety polyneuropathy chronic pain syndrome - Plan Plan: ivabx wound/surgical consult continue current orders Nutritional Asmnt/Malnutr-PDOC - Dietary Evaluation Malnutrition Findings (Please click <Entered> for more info): Nutritional Asmnt/Malnutrition Start: 09/06/17 17: 07 Text: Status: Complete Freq: Document 09/06/17 17:08 ALEXANDER (Rec: 09/06/17 17:17 [id number] Nutritional Asmnt/Malnutrition Patient General Information Nutritional Screening High Risk Consult Diagnosis left foot cellulitis, left foot gangrene Pertinent Medical Hx/Surgical Hx sle, cellulitis left leg, gangrene, gerd, anxiety, hyperlipidemia, anxiety, polyneuropathy, chronic pain syndrom, amputation upper extremity rbka Subjective Information Pt seen taking wound care at time of visit. Pt stated she did not like the lunch, she likes rice, pork chop. Adj BMI for amputation 20.3 Current Diet Order/ Nutrition Support KVNG Pertinent Medications vit C, os-won, colace, iron, culturelle, levaquin, protonix , piperacillin, zinc Pertinent Labs 2/5 Na 133, Ca 8.5 Nutritional Hx/Data Height 1.6 m Height (Calculated Centimeters) 160.0 Current Weight (lbs) 49.895 kg Weight (Calculated Kilograms) 49.9 Weight (Calculated Grams) 07342.2 [place] Body Weight 109 Body Mass Index (BMI) 19.5 Weight Status Approriate GI Symptoms GI Symptoms None Last BM none Difficult in: None Skin Integrity/Comment: skin tear to left foot and parietal Estimated Nutritional Goals BEE in Kcals: Using Current wt Calories/Kcals/Kg 27-32 Kcals Calculated 5206-2799 Protein: Using Current wt Protein g/k-1.2 Protein Calculated 50-60 Fluid: ml 5351-0505 Nutritional Problem 1. Problem Problem increased nutrition needs ( calorie and protein) Etiology increased metabolic demand for wound healing Signs/Symptoms: gangrened wound in left leg Malnutrition Alert Protein-Calorie Malnutrition N/A Is there a minimum of two criteria No selected? Query Text:Check all the applicable criteria. A minimum of two criteria are recommended for diagnosis of either severe or non-severe malnutrition. Intervention/Recommendation Comments 1. Continue with current diet as ordered. 2. Monitor PO intake, wt, labs and skin integrity 3. F/U as moderate risk in 3-5 days, 09/09-09/11 Expected Outcomes/Goals Expected Outcomes/Goals 1. PO intake to meet at least 75% of nutritional needs. 2. Wt stability, skin to remain intact, labs to approach WNL.
--- NOTE | 2017-09-07 09:52 | Diagnostic Imaging Report ---
Left lower extremity Doppler arterial ultrasound exam HISTORY: Gangrene left foot Sonographic sector images were obtained through the arterial system of the left leg. Associated Doppler data was obtained. The exam demonstrates triphasic waveforms within the left common femoral and superficial femoral arteries. Biphasic waveforms are noted within the left popliteal artery. Abnormal monophasic waveforms are noted within the left anterior and posterior tibial arteries. The left dorsalis pedis artery could not be visualized. Increased velocity noted within the left posterior tibial artery. Sonographic images demonstrate moderate to severe diffuse atherosclerotic changes throughout the left leg most pronounced below the knee. The left ankle-brachial index equals 0.98). IMPRESSION: 1. Sonographic and Doppler data suggesting moderate to severe diffuse atherosclerotic changes most pronounced below the knee. The left dorsalis pedis artery could not be visualized. Flow could not be evaluated.
[2017-09-07] MEDS: Pantoprazole 40 mg EC Tab PO SCH (10:50)
[2017-09-07] MEDS: HYDROmorphone 1 mg/mL 1mL Syr IVP PRN ×2 (13:58→17:40)
--- NOTE | 2017-09-07 14:45 | Consultation ---
DATE OF CONSULTATION: 09/06/2017 SURGICAL CONSULTATION REFERRING PHYSICIAN: Dr. Guardado. REASON FOR CONSULTATION: Gangrene, left foot. Thank you for referring this patient to me. HISTORY OF PRESENT ILLNESS: This is a 62-year-old female with long history of lupus erythematosus. Because of this, she underwent right below knee amputation in 1991 and subsequent to that about 2 or 3 years ago had both hands amputated also. She has in addition to the lupus, she has history of hyperlipidemia, anxiety disorder, GERD, polyneuropathy, chronic pain syndrome. On this admission, the laboratory studies showed the WBC to be normal, hemoglobin 11.2, and platelet count is low at 98,000. Chemistry is close to normal. LDL direct is very low at 16, HDL is low at 42, triglycerides is 62, and total cholesterol is 71. The patient has undergone a foot x-ray and this shows osteopenia. First and second rays with suggestion of demineralization, osteomyelitis of the second following just cannot be excluded. PHYSICAL EXAMINATION: The left foot is black up to the mid foot and towards the ankle on the lateral aspect. She has a right below knee amputation and amputation of both hands. She is extremely asthenic. The scalp also exhibits a skin loss from the lupus doubtless. The niece was called over the phone Sarah Ferrera and apparently, the patient makes her own decision. RECOMMENDATIONS: We will recommend a left below knee amputation as a lesser procedure would likely not be successful for healing. JOB# [id number]
--- NOTE | 2017-09-07 15:23 | Infectious Disease Prog Note ---
Infectious Disease Subjective - Review of Systems Service Date: 09/07/17 Subjective: No change, no fever. Infectious Disease Objective - Results Result Diagrams: 09/07/17 05:50 09/07/17 05:50 Recent Labs: Laboratory Last Values WBC 7.3 Th/cmm (4.8-10.8) 09/07/17 05:50 RBC 3.44 Mil/cmm (3.80-5.10) L 09/07/17 05:50 Hgb 11.0 gm/dL (12-16) L 09/07/17 05:50 Hct 34.6 % (41.0-60) L 09/07/17 05:50 MCV 100.5 fl (81-100) H 09/07/17 05:50 MCH 32.0 pg (27.0-31.0) H 09/07/17 05:50 MCHC Differential 31.8 pg (28.0-36.0) 09/07/17 05:50 RDW 13.5 % (11.5-20.0) 09/07/17 05:50 Plt Count 277 Th/cmm (150-400) D 09/07/17 05:50 MPV 7.8 fl 09/07/17 05:50 Neutrophils % 43.3 % (40.0-80.0) 09/05/17 15:00 Lymphocytes % 45.0 % (20.0-50.0) 09/05/17 15:00 Monocytes % 7.5 % (2.0-10.0) 09/05/17 15:00 Eosinophils % 3.3 % (0.0-5.0) 09/05/17 15:00 Basophils % 0.9 % (0.0-2.0) 09/05/17 15:00 Sodium 138 mEq/L (136-145) 09/07/17 05:50 Potassium 5.5 mEq/L (3.5-5.1) H 09/07/17 05:50 Chloride 109 mEq/L (98-107) H 09/07/17 05:50 Carbon Dioxide 21.2 mEq/L (21.0-31.0) 09/07/17 05:50 Anion Gap 13.3 (7.0-16.0) 09/07/17 05:50 BUN 19 mg/dL (7-25) 09/07/17 05:50 Creatinine 0.6 mg/dL (0.6-1.2) 09/07/17 05:50 Est GFR ( Amer) > 60.0 ml/min (>90) 09/07/17 05:50 Est GFR (Non-Af Amer) > 60.0 ml/min 09/07/17 05:50 BUN/Creatinine Ratio 31.7 09/07/17 05:50 Glucose 79 mg/dL (70-105) 09/07/17 05:50 Whole Bld Lactic Acid 0.81 mmol/L (0.60-1.99) 09/05/17 15:00 Calcium 9.3 mg/dL (8.6-10.3) 09/07/17 05:50 Magnesium 2.0 mg/dL (1.9-2.7) 09/05/17 15:00 Total Bilirubin 0.3 mg/dL (0.3-1.0) 09/05/17 15:00 AST 21 U/L (13-39) 09/05/17 15:00 ALT 8 U/L (7-52) 09/05/17 15:00 Alkaline Phosphatase 129 U/L (34-104) H 09/05/17 15:00 C-Reactive Protein 3.4 mg/dL (0.0-0.9) H 09/05/17 15:00 B-Natriuretic Peptide 158.0 pg/mL (5.0-100.0) H 09/05/17 15:00 Total Protein 8.2 gm/dL (6.0-8.3) 09/05/17 15:00 Albumin 2.8 gm/dL (3.7-5.3) L 09/05/17 15:00 Globulin 5.4 gm/dL 09/05/17 15:00 Albumin/Globulin Ratio 0.5 (1.0-1.8) L 09/05/17 15:00 Triglycerides 62 mg/dL (<150) 09/05/17 15:00 Cholesterol 71 mg/dL (<200) 09/05/17 15:00 LDL Cholesterol Direct 16 mg/dL (75-193) L 09/05/17 15:00 HDL Cholesterol 42 mg/dL (23-92) 09/05/17 15:00 TSH 1.71 uIU/ml (0.34-5.60) 09/05/17 15:00 Urine Source CLEAN C 09/05/17 14:26 Urine Color YELLOW 09/05/17 14:26 Urine Clarity HAZY (CLEAR) 09/05/17 14:26 Urine pH 6.5 (4.6 - 8.0) 09/05/17 14:26 Ur Specific [place] 1.010 (1.005-1.030) 09/05/17 14:26 Urine Protein TRACE mg/dL (NEGATIVE) 09/05/17 14:26 Urine Glucose (UA) NEGATIVE mg/dL (NEGATIVE) 09/05/17 14:26 Urine Ketones NEGATIVE mg/dL (NEGATIVE) 09/05/17 14:26 Urine Blood SMALL (NEGATIVE) H 09/05/17 14:26 Urine Nitrate NEGATIVE (NEGATIVE) 09/05/17 14:26 Urine Bilirubin NEGATIVE (NEGATIVE) 09/05/17 14:26 Urine Urobilinogen 0.2 E.U./dL (0.2 - 1.0) 09/05/17 14:26 Ur Leukocyte Esterase SMALL (NEGATIVE) H 09/05/17 14:26 Urine RBC 5-10 /hpf (0-5) H 09/05/17 14:26 Urine WBC 6-10 /hpf (0-5) H 09/05/17 14:26 Ur Epithelial Cells OCCASIONAL /lpf (FEW) 09/05/17 14:26 Urine Bacteria FEW /hpf (NONE SEEN) 09/05/17 14:26 - Physical Exam Vitals and I&O: Vital Signs Temp 97.4 F 09/07/17 12:30 Pulse 74 09/07/17 12:30 Resp 19 09/07/17 12:30 BP 143/57 09/07/17 12:30 Pulse Ox 98 09/07/17 12:30 Intake & Output 09/06/17 09/07/17 09/07/17 18:59 06:59 18:59 Intake Total 150 400 50 Balance 150 400 50 Weight (lbs) 49.895 kg 49.895 kg 49.895 kg Intake: Intake, IV Amount 150 200 50 Clindamycin 600mg/50mL 50 100 600 mg In 50 ml @ 100 mls /hr IV Q8HR [facility] Rx#: [id number] Piperacillin Sodium/ 100 100 50 Tazobact 3.375 gm In Sodium Chloride 0.9% 50 ml @ 100 mls/hr IV Q6HR [facility] Rx#:[id number] Oral 200 Other: # Voids 3 # Bowel Movements 0 Stool Characteristics Formed Active Medications: Current Medications Acetaminophen (Tylenol) 650 mg PO DAILY PAULY Stop: 11/05/17 08:59 Last Admin: 09/07/17 09:31 Dose: 650 mg Acetaminophen (Tylenol) 650 mg PO Q4HR PRN PRN Reason: Mild Pain or Fever >101 Stop: 11/04/17 20:58 Acetaminophen/Hydrocodone Bitart ([place] 10 Mg/325 Mg) 1 tab PO Q8H PRN PRN Reason: MOD/SEVERE PAIN Stop: 11/04/17 20:58 Albuterol Sulfate (Albuterol 2.5mg/3ml Neb Ud) 2.5 mg HHN Q6HR PRN PRN Reason: sob/WHEEZING/CONGESTION Stop: 11/04/17 20:58 Ascorbic Acid (Vitamin C) 500 mg PO DAILY PAULY Stop: 11/05/17 08:59 Last Admin: 09/07/17 09:34 Dose: 500 mg Atorvastatin Calcium (Lipitor) 40 mg PO HS PAULY Stop: 11/04/17 20:59 Last Admin: 09/06/17 21:09 Dose: 40 mg Bisacodyl (Dulcolax 10 Mg Supp) 10 mg RC DAILY PRN PRN Reason: IF MOM INEFFECTIVE FOR CONSTIP Stop: 11/04/17 20:58 Calcium Carbonate (Os-[place]) 500 mg PO DAILY PAULY Stop: 11/05/17 08:59 Last Admin: 09/07/17 09:30 Dose: 500 mg Docusate Sodium (Colace) 100 mg PO DAILY PAULY Stop: 11/05/17 08:59 Last Admin: 09/07/17 09:32 Dose: 100 mg Fentanyl (Duragesic 25 Mcg/Hr Tdm Patch) 1 patch TD Q72HR PAULY PRN Reason: Protocol Stop: 11/05/17 09:59 Last Admin: 09/06/17 09:28 Dose: 1 patch Ferrous Sulfate (Iron) 325 mg PO DAILY PAULY Stop: 11/05/17 08:59 Last Admin: 09/07/17 09:32 Dose: 325 mg Fluticasone Propionate (Flonase) 1 spr NS DAILY PRN PRN Reason: Congestion Stop: 11/04/17 20:58 Gabapentin (Neurontin) 300 mg PO TID PAULY Stop: 11/04/17 20:59 Last Admin: 09/07/17 13:59 Dose: 300 mg Hydromorphone HCl (Dilaudid) 2 mg IVP Q4HR PRN PRN Reason: Pain (Severe) Stop: 11/04/17 20:05 Last Admin: 09/06/17 13:41 Dose: 2 mg Hydromorphone HCl (Dilaudid) 1 mg IVP Q4HR PRN PRN Reason: Pain (Moderate) Stop: 11/04/17 20:05 Last Admin: 09/07/17 13:58 Dose: 1 mg Hydroxyzine HCl (Atarax) 25 mg PO Q8HR PRN; Protocol PRN Reason: Itching Stop: 11/04/17 20:58 Clindamycin Phosphate (Cleocin Pb) 600 mg in 50 mls @ 100 mls/hr IV Q8HR PAULY Stop: 11/04/17 20:59 Last Admin: 09/07/17 13:21 Dose: 100 mls/hr Levofloxacin (Levaquin Pb) 500 mg in 100 mls @ 100 mls/hr IV Q24HR [facility] Stop: 11/05/17 20:59 Last Admin: 09/06/17 22:44 Dose: 100 mls/hr Piperacillin Sod/Tazobactam (Sod 3.375 gm/ Sodium Chloride) 50 mls @ 100 mls/ hr IV Q6HR PAULY Stop: 11/05/17 00:00 Last Admin: 09/07/17 13:20 Dose: 100 mls/hr Lactobacillus Rhamnosus (Culturelle 15b) 1 each PO DAILY PAULY Stop: 11/06/17 08:59 Last Admin: 09/07/17 09:30 Dose: 1 each Magnesium Hydroxide (Milk Of Magnesia) 30 ml PO HS PRN PRN Reason: Constipation Stop: 11/04/17 20:58 Miscellaneous (Zosyn Iv Per Pharmacy) 1 ea PRN PRN PRN Reason: PROTOCOL Stop: 11/04/17 20:05 Miscellaneous (Vte Chemical Prophylaxis Screen/ Admission) 1 ea PRN PRN PRN Reason: PROTOCOL Stop: 11/05/17 08:14 Miscellaneous (Probiotic Screen) 1 ea PRN PRN PRN Reason: PROTOCOL Stop: 11/05/17 09:14 Morphine Sulfate (Morphine Ir) 15 mg PO Q12H PAULY Stop: 11/04/17 20:59 Last Admin: 09/07/17 09:30 Dose: 15 mg Ondansetron HCl (Zofran) 4 mg IV Q6H PRN PRN Reason: Nausea / Vomiting Stop: 11/04/17 20:05 Pantoprazole Sodium (Protonix) 40 mg PO DAILY PAULY Stop: 11/05/17 08:59 Last Admin: 09/07/17 10:50 Dose: 40 mg Temazepam (Restoril) 15 mg PO HS PRN; Protocol PRN Reason: Insomnia Stop: 11/04/17 20:21 Zinc Sulfate (Zinc Sulfate) 220 mg PO DAILY [facility] Stop: 11/05/17 08:59 Last Admin: 09/07/17 09:30 Dose: 220 mg General: no acute distress, well developed, well nourished HEENT: atraumatic, normocephalic, PERRLA Neck: supple, no thyromegaly, no lymphadenopathy Cardiovascular: S1S2, regular Lungs: clear to auscultation bilaterally, clear to percussion Abdomen: soft, no tender, no distended, no mass Extremities: no cyanosis, no clubbing, no edema Neurological: awake, alert Infectious Disease Assmt/Plan - Problem List Patient Problems: All Active Problems LEFT LOWER EXTREMITY GANGRENE (Acute) - Assessment Assessment: Left foot gangrene. Lupus - Plan Plan: CPM. Nutritional Asmnt/Malnutr-PDOC - Dietary Evaluation Malnutrition Findings (Please click <Entered> for more info): Nutritional Asmnt/Malnutrition Start: 09/06/17 17: 07 Text: Status: Complete Freq: Document 09/06/17 17:08 LCHENG (Rec: 09/06/17 17:17 [place] [email or web address]) Nutritional Asmnt/Malnutrition Patient General Information Nutritional Screening High Risk Consult Diagnosis left foot cellulitis, left foot gangrene Pertinent Medical Hx/Surgical Hx sle, cellulitis left leg, gangrene, gerd, anxiety, hyperlipidemia, anxiety, polyneuropathy, chronic pain syndrom, amputation upper extremity rbka Subjective Information Consult received for wounds. Pt seen taking wound care at time of visit. Pt stated she did not like the lunch, she likes rice, pork chop. Adj BMI for amputation 20.3 Current Diet Order/ Nutrition Support KVNG Pertinent Medications vit C, os-won, colace, iron, culturelle, levaquin, protonix , piperacillin, zinc Pertinent Labs 2/ Na 133, Ca 8.5 Nutritional Hx/Data Height 1.6 m Height (Calculated Centimeters) 160.0 Current Weight (lbs) 49.895 kg Weight (Calculated Kilograms) 49.9 Weight (Calculated Grams) 51128.2 [place] Body Weight 109 Body Mass Index (BMI) 19.5 Weight Status Approriate GI Symptoms GI Symptoms None Last BM none Difficult in: None Skin Integrity/Comment: skin tear to left foot and parietal Estimated Nutritional Goals BEE in Kcals: Using Current wt Calories/Kcals/Kg 27-32 Kcals Calculated 6760-7462 Protein: Using Current wt Protein g/k-1.2 Protein Calculated 50-60 Fluid: ml 9826-6435 Nutritional Problem 1. Problem Problem increased nutrition needs ( calorie and protein) Etiology increased metabolic demand for wound healing Signs/Symptoms: gangrened wound in left leg Malnutrition Alert Protein-Calorie Malnutrition N/A Is there a minimum of two criteria No selected? Query Text:Check all the applicable criteria. A minimum of two criteria are recommended for diagnosis of either severe or non-severe malnutrition. Intervention/Recommendation Comments 1. Continue with current diet as ordered. 2. Monitor PO intake, wt, labs and skin integrity 3. F/U as moderate risk in 3-5 days, 09/09-09/11 Expected Outcomes/Goals Expected Outcomes/Goals 1. PO intake to meet at least 75% of nutritional needs. 2. Wt stability, skin to remain intact, labs to approach WNL.
[2017-09-07] MEDS: Atorvastatin Calcium 10 MG TAB PO SCH (22:05)
[2017-09-07] MEDS: Levofloxacin 500mg/100mL 500 MG/100 ML BAG IV SCH (22:08)
[2017-09-08] MEDS: HYDROmorphone 1 mg/mL 1mL Syr IVP PRN ×2 (00:06→17:03)
[2017-09-08] MEDS: HYDROmorphone 2 mg/mL 1mL Vial IVP PRN ×3 (03:56→19:36)
[2017-09-08] MEDS ORDERED: HYDROmorphone 1 mg/mL 1mL Syr ONE ×2 (07:31→07:49)
[2017-09-08] MEDS ORDERED: Midazolam 1mg/ml 2 ml vial IV ONE ×4 (07:47→09:15)
[2017-09-08] MEDS ORDERED: HYDROmorphone 2 mg/mL 1mL Vial IVP PRN (08:21)
[2017-09-08] MEDS ORDERED: Venelex 60gm Tube TP ONE (08:43)
--- NOTE | 2017-09-08 08:45 | General Progress Note ---
Subjective - Review of Systems Service Date: 09/08/17 Events since last encounter: s/p left bka Objective - Results Result Diagrams: 09/07/17 05:50 09/07/17 05:50 Recent Labs: Laboratory Last Values WBC 7.3 Th/cmm (4.8-10.8) 09/07/17 05:50 RBC 3.44 Mil/cmm (3.80-5.10) L 09/07/17 05:50 Hgb 11.0 gm/dL (12-16) L 09/07/17 05:50 Hct 34.6 % (41.0-60) L 09/07/17 05:50 MCV 100.5 fl (81-100) H 09/07/17 05:50 MCH 32.0 pg (27.0-31.0) H 09/07/17 05:50 MCHC Differential 31.8 pg (28.0-36.0) 09/07/17 05:50 RDW 13.5 % (11.5-20.0) 09/07/17 05:50 Plt Count 277 Th/cmm (150-400) D 09/07/17 05:50 MPV 7.8 fl 09/07/17 05:50 Neutrophils % 43.3 % (40.0-80.0) 09/05/17 15:00 Lymphocytes % 45.0 % (20.0-50.0) 09/05/17 15:00 Monocytes % 7.5 % (2.0-10.0) 09/05/17 15:00 Eosinophils % 3.3 % (0.0-5.0) 09/05/17 15:00 Basophils % 0.9 % (0.0-2.0) 09/05/17 15:00 Sodium 138 mEq/L (136-145) 09/07/17 05:50 Potassium 5.5 mEq/L (3.5-5.1) H 09/07/17 05:50 Chloride 109 mEq/L (98-107) H 09/07/17 05:50 Carbon Dioxide 21.2 mEq/L (21.0-31.0) 09/07/17 05:50 Anion Gap 13.3 (7.0-16.0) 09/07/17 05:50 BUN 19 mg/dL (7-25) 09/07/17 05:50 Creatinine 0.6 mg/dL (0.6-1.2) 09/07/17 05:50 Est GFR ( Amer) > 60.0 ml/min (>90) 09/07/17 05:50 Est GFR (Non-Af Amer) > 60.0 ml/min 09/07/17 05:50 BUN/Creatinine Ratio 31.7 09/07/17 05:50 Glucose 79 mg/dL (70-105) 09/07/17 05:50 Whole Bld Lactic Acid 0.81 mmol/L (0.60-1.99) 09/05/17 15:00 Calcium 9.3 mg/dL (8.6-10.3) 09/07/17 05:50 Magnesium 2.0 mg/dL (1.9-2.7) 09/05/17 15:00 Total Bilirubin 0.3 mg/dL (0.3-1.0) 09/05/17 15:00 AST 21 U/L (13-39) 09/05/17 15:00 ALT 8 U/L (7-52) 09/05/17 15:00 Alkaline Phosphatase 129 U/L (34-104) H 09/05/17 15:00 C-Reactive Protein 3.4 mg/dL (0.0-0.9) H 09/05/17 15:00 B-Natriuretic Peptide 158.0 pg/mL (5.0-100.0) H 09/05/17 15:00 Total Protein 8.2 gm/dL (6.0-8.3) 09/05/17 15:00 Albumin 2.8 gm/dL (3.7-5.3) L 09/05/17 15:00 Globulin 5.4 gm/dL 09/05/17 15:00 Albumin/Globulin Ratio 0.5 (1.0-1.8) L 09/05/17 15:00 Triglycerides 62 mg/dL (<150) 09/05/17 15:00 Cholesterol 71 mg/dL (<200) 09/05/17 15:00 LDL Cholesterol Direct 16 mg/dL (75-193) L 09/05/17 15:00 HDL Cholesterol 42 mg/dL (23-92) 09/05/17 15:00 TSH 1.71 uIU/ml (0.34-5.60) 09/05/17 15:00 Urine Source CLEAN C 09/05/17 14:26 Urine Color YELLOW 09/05/17 14:26 Urine Clarity HAZY (CLEAR) 09/05/17 14:26 Urine pH 6.5 (4.6 - 8.0) 09/05/17 14:26 Ur Specific [place] 1.010 (1.005-1.030) 09/05/17 14:26 Urine Protein TRACE mg/dL (NEGATIVE) 09/05/17 14:26 Urine Glucose (UA) NEGATIVE mg/dL (NEGATIVE) 09/05/17 14:26 Urine Ketones NEGATIVE mg/dL (NEGATIVE) 09/05/17 14:26 Urine Blood SMALL (NEGATIVE) H 09/05/17 14:26 Urine Nitrate NEGATIVE (NEGATIVE) 09/05/17 14:26 Urine Bilirubin NEGATIVE (NEGATIVE) 09/05/17 14:26 Urine Urobilinogen 0.2 E.U./dL (0.2 - 1.0) 09/05/17 14:26 Ur Leukocyte Esterase SMALL (NEGATIVE) H 09/05/17 14:26 Urine RBC 5-10 /hpf (0-5) H 09/05/17 14:26 Urine WBC 6-10 /hpf (0-5) H 09/05/17 14:26 Ur Epithelial Cells OCCASIONAL /lpf (FEW) 09/05/17 14:26 Urine Bacteria FEW /hpf (NONE SEEN) 09/05/17 14:26 - Physical Exam Vitals and I&O: Vital Signs Temp 97.4 F 09/08/17 04:00 Pulse 75 09/08/17 08:40 Resp 18 09/08/17 08:40 BP 154/55 09/08/17 04:00 Pulse Ox 98 09/08/17 08:40 Intake & Output 09/07/17 09/08/17 09/08/17 18:59 06:59 18:59 Intake Total 50 300 Balance 50 300 Weight (lbs) 49.895 kg 49.895 kg Intake: Intake, IV Amount 50 Piperacillin Sodium/ 50 Tazobact 3.375 gm In Sodium Chloride 0.9% 50 ml @ 100 mls/hr IV Q6HR [facility] Rx#:[id number] Oral 300 Other: # Voids 3 # Bowel Movements 0 Active Medications: Current Medications Acetaminophen (Tylenol) 650 mg PO DAILY PAULY Stop: 11/05/17 08:59 Last Admin: 09/07/17 09:31 Dose: 650 mg Acetaminophen (Tylenol) 650 mg PO Q4HR PRN PRN Reason: Mild Pain or Fever >101 Stop: 11/04/17 20:58 Acetaminophen/Hydrocodone Bitart ([place] 10 Mg/325 Mg) 1 tab PO Q8H PRN PRN Reason: MOD/SEVERE PAIN Stop: 11/04/17 20:58 Albuterol Sulfate (Albuterol 2.5mg/3ml Neb Ud) 2.5 mg HHN Q6HR PRN PRN Reason: sob/WHEEZING/CONGESTION Stop: 11/04/17 20:58 Ascorbic Acid (Vitamin C) 500 mg PO DAILY PAULY Stop: 11/05/17 08:59 Last Admin: 09/07/17 09:34 Dose: 500 mg Atorvastatin Calcium (Lipitor) 40 mg PO HS PAULY Stop: 11/04/17 20:59 Last Admin: 09/07/17 22:05 Dose: 40 mg Bisacodyl (Dulcolax 10 Mg Supp) 10 mg RC DAILY PRN PRN Reason: IF MOM INEFFECTIVE FOR CONSTIP Stop: 11/04/17 20:58 Calcium Carbonate (Os-[place]) 500 mg PO DAILY PAULY Stop: 11/05/17 08:59 Last Admin: 09/07/17 09:30 Dose: 500 mg Docusate Sodium (Colace) 100 mg PO DAILY PAULY Stop: 11/05/17 08:59 Last Admin: 09/07/17 09:32 Dose: 100 mg Fentanyl (Duragesic 25 Mcg/Hr Tdm Patch) 1 patch TD Q72HR PAULY PRN Reason: Protocol Stop: 11/05/17 09:59 Last Admin: 09/06/17 09:28 Dose: 1 patch Ferrous Sulfate (Iron) 325 mg PO DAILY PAULY Stop: 11/05/17 08:59 Last Admin: 09/07/17 09:32 Dose: 325 mg Fluticasone Propionate (Flonase) 1 spr NS DAILY PRN PRN Reason: Congestion Stop: 11/04/17 20:58 Gabapentin (Neurontin) 300 mg PO TID PAULY Stop: 11/04/17 20:59 Last Admin: 09/07/17 22:04 Dose: 300 mg Hydromorphone HCl (Dilaudid) 2 mg IVP Q4HR PRN PRN Reason: Pain (Severe) Stop: 11/04/17 20:05 Last Admin: 09/08/17 03:56 Dose: 2 mg Hydromorphone HCl (Dilaudid) 1 mg IVP Q4HR PRN PRN Reason: Pain (Moderate) Stop: 11/04/17 20:05 Last Admin: 09/08/17 00:06 Dose: 1 mg Hydromorphone HCl (Dilaudid) 2 mg IVP Q4HR PRN PRN Reason: Pain (Severe) Stop: 09/09/17 08:20 Hydroxyzine HCl (Atarax) 25 mg PO Q8HR PRN; Protocol PRN Reason: Itching Stop: 11/04/17 20:58 Levofloxacin (Levaquin Pb) 500 mg in 100 mls @ 100 mls/hr IV Q24HR [facility] Stop: 11/05/17 20:59 Last Admin: 09/07/17 22:08 Dose: 100 mls/hr Sodium Chloride (Nacl 0.9%) 1,000 mls @ 100 mls/hr IV .Q10H PAULY Stop: 09/09/17 08:29 Lactobacillus Rhamnosus (Culturelle 15b) 1 each PO DAILY PAULY Stop: 11/06/17 08:59 Last Admin: 09/07/17 09:30 Dose: 1 each Magnesium Hydroxide (Milk Of Magnesia) 30 ml PO HS PRN PRN Reason: Constipation Stop: 11/04/17 20:58 Miscellaneous (Zosyn Iv Per Pharmacy) 1 ea MC PRN PRN PRN Reason: PROTOCOL Stop: 11/04/17 20:05 Miscellaneous (Vte Chemical Prophylaxis Screen/ Admission) 1 ea MC PRN PRN PRN Reason: PROTOCOL Stop: 11/05/17 08:14 Miscellaneous (Probiotic Screen) 1 ea MC PRN PRN PRN Reason: PROTOCOL Stop: 11/05/17 09:14 Morphine Sulfate (Morphine Ir) 15 mg PO Q12H PAULY Stop: 11/04/17 20:59 Last Admin: 09/07/17 22:04 Dose: 15 mg Ondansetron HCl (Zofran) 4 mg IV Q6H PRN PRN Reason: Nausea / Vomiting Stop: 11/04/17 20:05 Pantoprazole Sodium (Protonix) 40 mg PO DAILY PAULY Stop: 11/05/17 08:59 Last Admin: 09/07/17 10:50 Dose: 40 mg Temazepam (Restoril) 15 mg PO HS PRN; Protocol PRN Reason: Insomnia Stop: 11/04/17 20:21 Zinc Sulfate (Zinc Sulfate) 220 mg PO DAILY PAULY Stop: 11/05/17 08:59 Last Admin: 09/07/17 09:30 Dose: 220 mg General: Alert HEENT: Atraumatic Neck: Supple Lungs: Clear to auscultation Abdomen: Bowel sounds Assessment/Plan - Problem List Patient Problems: All Active Problems LEFT LOWER EXTREMITY GANGRENE (Acute) - Assessment Assessment: Current Active Problems Problem Status Onset LEFT LOWER EXTREMITY GANGRENE Acute sle gerd anxiety hyperlipidemia anxiety polyneuropathy chronic pain syndrome - Plan Plan: ivabx pain mgmt continue current orders Nutritional Asmnt/Malnutr-PDOC - Dietary Evaluation Malnutrition Findings (Please click <Entered> for more info): Nutritional Asmnt/Malnutrition Start: 09/06/17 17: 07 Text: Status: Complete Freq: Document 09/06/17 17:08 HEN (Rec: 09/06/17 17:17 LCHENG [email or web address]) Nutritional Asmnt/Malnutrition Patient General Information Nutritional Screening High Risk Consult Diagnosis left foot cellulitis, left foot gangrene Pertinent Medical Hx/Surgical Hx sle, cellulitis left leg, gangrene, gerd, anxiety, hyperlipidemia, anxiety, polyneuropathy, chronic pain syndrom, amputation upper extremity rbka Subjective Information Consult received for wounds. Pt seen taking wound care at time of visit. Pt stated she did not like the lunch, she likes rice, pork chop. Adj BMI for amputation 20.3 Current Diet Order/ Nutrition Support KVNG Pertinent Medications vit C, os-nella, colace, iron, culturelle, levaquin, protonix , piperacillin, zinc Pertinent Labs 2/5 Na 133, Ca 8.5 Nutritional Hx/Data Height 1.6 m Height (Calculated Centimeters) 160.0 Current Weight (lbs) 49.895 kg Weight (Calculated Kilograms) 49.9 Weight (Calculated Grams) 69427.2 [place] Body Weight 109 Body Mass Index (BMI) 19.5 Weight Status Approriate GI Symptoms GI Symptoms None Last BM none Difficult in: None Skin Integrity/Comment: skin tear to left foot and parietal Estimated Nutritional Goals BEE in Kcals: Using Current wt Calories/Kcals/Kg 27-32 Kcals Calculated 8507-0860 Protein: Using Current wt Protein g/k-1.2 Protein Calculated 50-60 Fluid: ml 6912-0394 Nutritional Problem 1. Problem Problem increased nutrition needs ( calorie and protein) Etiology increased metabolic demand for wound healing Signs/Symptoms: gangrened wound in left leg Malnutrition Alert Protein-Calorie Malnutrition N/A Is there a minimum of two criteria No selected? Query Text:Check all the applicable criteria. A minimum of two criteria are recommended for diagnosis of either severe or non-severe malnutrition. Intervention/Recommendation Comments 1. Continue with current diet as ordered. 2. Monitor PO intake, wt, labs and skin integrity 3. F/U as moderate risk in 3-5 days, 09/09-09/11 Expected Outcomes/Goals Expected Outcomes/Goals 1. PO intake to meet at least 75% of nutritional needs. 2. Wt stability, skin to remain intact, labs to approach WNL.
[2017-09-08] MEDS: Multivitamin w/ Minerals Tab PO SCH (09:00)
[2017-09-08] MEDS: Pantoprazole 40 mg EC Tab PO SCH (09:00)
[2017-09-08] MEDS: Lactobacillus Rhamnosus GG 15 Billion CFU CAP.SPRINK PO SCH (09:00)
[2017-09-08] MEDS: Ferrous Sulfate 325 MG TAB PO SCH (09:00)
[2017-09-08] MEDS ORDERED: HYDROmorphone 2 mg/mL 1mL Vial ONE ×2 (09:05→09:19)
--- NOTE | 2017-09-08 09:47 | Operative Report ---
DATE OF SURGERY: 09/08/2017 PREOPERATIVE DIAGNOSES: 1. Gangrene, left foot. 2. Status post right below knee amputation. 3. Status post amputation, right hand. 4. Status post amputation, left hand. 5. Systemic lupus erythematosus. 6. Hyperlipidemia. POSTOPERATIVE DIAGNOSES: 1. Gangrene, left foot. 2. Status post right below knee amputation. 3. Status post amputation, right hand. 4. Status post amputation, left hand. 5. Systemic lupus erythematosus. 6. Hyperlipidemia. OPERATION DONE: 1. Left below knee amputation. 2. Application of posterior splint. 3. Debridement of the scalp ulcerations. SURGEON: Dr. Rodriguez. SHIPFITTER HELPER: Dr. Thomas. ANESTHESIA: General. ANESTHESIOLOGIST: Dr. Card. ESTIMATED BLOOD LOSS: 30 mL. OPERATIVE FINDINGS: Markedly swollen left leg at site of amputation with edema. The scalp ulcerations has bleeding granulation tissue. DESCRIPTION OF PROCEDURE: The patient was given general anesthesia. Left lower extremity was prepped with Betadine and draped in appropriate manner. An incision was made on the leg below the knee one-third distance to the ankle. Incision was carried all the way down to the fascia. Edema fluid oozed out of the incision. The tibia was exposed and the periosteum stripped and this was transected one inch above the initial skin incision. The fibula was transected 1 cm above this. Vessels were identified, clamped, divided and ligated. The posterior muscle layers were then transected. Because of the edema it was difficult to bring the fascia together, which was done with interrupted [id number] sutures of #1 Vicryl. The skin was then closed with cyndi. Compression dressing was placed over this and a posterior splint was applied. The granulation tissue on the scalp was debrided and Venelex was applied and a sterile dressing. The patient tolerated the procedure well. JOB# [id number] [facility]
[2017-09-08] MEDS: Sodium Chloride 0.9% 1,000 ML IV SCH ×2 (12:34→22:45)
[2017-09-08] MEDS: Atorvastatin Calcium 10 MG TAB PO SCH (20:37)
[2017-09-08] MEDS: Levofloxacin 500mg/100mL 500 MG/100 ML BAG IV SCH (20:47)
[2017-09-09] MEDS: HYDROmorphone 2 mg/mL 1mL Vial IVP PRN ×2 (01:07→23:40)
[2017-09-09] MEDS: HYDROmorphone 1 mg/mL 1mL Syr IVP PRN (03:35)
[2017-09-09 06:30] LABS: % BASOPHILS 0.1 % (0.0-2.0); % EOSINOPHILS 0.8 % (0.0-5.0); % LYMPHOCYTES 14.3 % (20.0-50.0); % MONOCYTES 14.9 % (2.0-10.0); % NEUTROPHILS 69.9 % (40.0-80.0); EOSINOPHILE ABSOLUTE 0.1 Th/cmm (0.1-0.4); LYMPHOCYTE ABSOLUTE 1.3 Th/cmm (1.5-3.0); MEAN CELL VOLUME 98.8 fl (81-100); MEAN CORPUSCULAR HGB CONC 32.4 pg (28.0-36.0); MEAN PLATELET VOLUME 7.7 fl; MONOCYTE ABSOLUTE 1.4 Th/cmm (0.3-1.0); NEUTROPHILE ABSOLUTE 6.3 Th/cmm (1.8-8.0); PLATELET COUNT 301 Th/cmm (150-400); RED BLOOD COUNT 3.13 Mil/cmm (3.80-5.10); RED CELL DISTRIBUTION WIDTH 13.3 % (11.5-20.0)
[2017-09-09 06:32] LABS: HEMATOCRIT 30.9 % (41.0-60); WHITE BLOOD COUNT 9.1 Th/cmm (4.8-10.8)
[2017-09-09] MEDS: Pantoprazole 40 mg EC Tab PO SCH (09:33)
[2017-09-09] MEDS: Ferrous Sulfate 325 MG TAB PO SCH (09:33)
[2017-09-09] MEDS: Sodium Chloride 0.9% 1,000 ML IV SCH (09:34)
[2017-09-09] MEDS: Lactobacillus Rhamnosus GG 15 Billion CFU CAP.SPRINK PO SCH (09:34)
[2017-09-09] MEDS: Multivitamin w/ Minerals Tab PO SCH (09:35)
--- NOTE | 2017-09-09 14:06 | General Progress Note ---
Subjective - Review of Systems Service Date: 09/09/17 Events since last encounter: K yesterday was 5.5 recheck labs today dressing dry Objective - Results Result Diagrams: 09/09/17 05:40 09/07/17 05:50 Recent Labs: Laboratory Last Values WBC 9.1 Th/cmm (4.8-10.8) D 09/09/17 05:40 RBC 3.13 Mil/cmm (3.80-5.10) L 09/09/17 05:40 Hgb 10.0 gm/dL (12-16) L 09/09/17 05:40 Hct 30.9 % (41.0-60) L D 09/09/17 05:40 MCV 98.8 fl (81-100) 09/09/17 05:40 MCH 32.0 pg (27.0-31.0) H 09/09/17 05:40 MCHC Differential 32.4 pg (28.0-36.0) 09/09/17 05:40 RDW 13.3 % (11.5-20.0) 09/09/17 05:40 Plt Count 301 Th/cmm (150-400) 09/09/17 05:40 MPV 7.7 fl 09/09/17 05:40 Neutrophils % 69.9 % (40.0-80.0) 09/09/17 05:40 Lymphocytes % 14.3 % (20.0-50.0) L 09/09/17 05:40 Monocytes % 14.9 % (2.0-10.0) H 09/09/17 05:40 Eosinophils % 0.8 % (0.0-5.0) 09/09/17 05:40 Basophils % 0.1 % (0.0-2.0) 09/09/17 05:40 Sodium 138 mEq/L (136-145) 09/07/17 05:50 Potassium 5.5 mEq/L (3.5-5.1) H 09/07/17 05:50 Chloride 109 mEq/L (98-107) H 09/07/17 05:50 Carbon Dioxide 21.2 mEq/L (21.0-31.0) 09/07/17 05:50 Anion Gap 13.3 (7.0-16.0) 02/07/18 05:50 BUN 19 mg/dL (7-25) 09/07/17 05:50 Creatinine 0.6 mg/dL (0.6-1.2) 09/07/17 05:50 Est GFR ( Amer) > 60.0 ml/min (>90) 09/07/17 05:50 Est GFR (Non-Af Amer) > 60.0 ml/min 09/07/17 05:50 BUN/Creatinine Ratio 31.7 09/07/17 05:50 Glucose 79 mg/dL (70-105) 09/07/17 05:50 Whole Bld Lactic Acid 0.81 mmol/L (0.60-1.99) 09/05/17 15:00 Calcium 9.3 mg/dL (8.6-10.3) 09/07/17 05:50 Magnesium 2.0 mg/dL (1.9-2.7) 09/05/17 15:00 Total Bilirubin 0.3 mg/dL (0.3-1.0) 09/05/17 15:00 AST 21 U/L (13-39) 09/05/17 15:00 ALT 8 U/L (7-52) 09/05/17 15:00 Alkaline Phosphatase 129 U/L (34-104) H 09/05/17 15:00 C-Reactive Protein 3.4 mg/dL (0.0-0.9) H 09/05/17 15:00 B-Natriuretic Peptide 158.0 pg/mL (5.0-100.0) H 09/05/17 15:00 Total Protein 8.2 gm/dL (6.0-8.3) 09/05/17 15:00 Albumin 2.8 gm/dL (3.7-5.3) L 09/05/17 15:00 Globulin 5.4 gm/dL 09/05/17 15:00 Albumin/Globulin Ratio 0.5 (1.0-1.8) L 09/05/17 15:00 Triglycerides 62 mg/dL (<150) 09/05/17 15:00 Cholesterol 71 mg/dL (<200) 09/05/17 15:00 LDL Cholesterol Direct 16 mg/dL (75-193) L 09/05/17 15:00 HDL Cholesterol 42 mg/dL (23-92) 09/05/17 15:00 TSH 1.71 uIU/ml (0.34-5.60) 09/05/17 15:00 Urine Source CLEAN C 09/05/17 14:26 Urine Color YELLOW 09/05/17 14:26 Urine Clarity HAZY (CLEAR) 09/05/17 14:26 Urine pH 6.5 (4.6 - 8.0) 09/05/17 14:26 Ur Specific [place] 1.010 (1.005-1.030) 09/05/17 14:26 Urine Protein TRACE mg/dL (NEGATIVE) 09/05/17 14:26 Urine Glucose (UA) NEGATIVE mg/dL (NEGATIVE) 09/05/17 14:26 Urine Ketones NEGATIVE mg/dL (NEGATIVE) 09/05/17 14:26 Urine Blood SMALL (NEGATIVE) H 09/05/17 14:26 Urine Nitrate NEGATIVE (NEGATIVE) 09/05/17 14:26 Urine Bilirubin NEGATIVE (NEGATIVE) 09/05/17 14:26 Urine Urobilinogen 0.2 E.U./dL (0.2 - 1.0) 09/05/17 14:26 Ur Leukocyte Esterase SMALL (NEGATIVE) H 09/05/17 14:26 Urine RBC 5-10 /hpf (0-5) H 09/05/17 14:26 Urine WBC 6-10 /hpf (0-5) H 09/05/17 14:26 Ur Epithelial Cells OCCASIONAL /lpf (FEW) 09/05/17 14:26 Urine Bacteria FEW /hpf (NONE SEEN) 09/05/17 14:26 - Physical Exam Vitals and I&O: Vital Signs Temp 98.0 F 09/09/17 11:36 Pulse 96 09/09/17 11:36 Resp 20 09/09/17 11:36 BP 183/87 09/09/17 11:36 Pulse Ox 100 09/09/17 11:36 Intake & Output 09/08/17 09/09/17 09/09/17 18:59 06:59 18:59 Intake Total 100 1000 1000 Output Total 150 Balance 100 1000 850 Weight (lbs) 49.895 kg Intake: Intake, IV Amount 100 1000 1000 Levofloxacin 500mg/100mL 100 500 mg In 100 ml @ 100 mls/hr IV Q24HR [facility] Rx#: [id number] Sodium Chloride 0.9% 1, 1000 1000 000 ml @ 100 mls/hr IV . Q10H [facility] Rx#:[id number] Output: Urine 150 Active Medications: Current Medications Acetaminophen (Tylenol) 650 mg PO DAILY [facility] Stop: 11/05/17 08:59 Last Admin: 09/09/17 09:33 Dose: 650 mg Acetaminophen (Tylenol) 650 mg PO Q4HR PRN PRN Reason: Mild Pain or Fever >101 Stop: 11/04/17 20:58 Acetaminophen/Hydrocodone Bitart ([place] 10 Mg/325 Mg) 1 tab PO Q8H PRN PRN Reason: MOD/SEVERE PAIN Stop: 11/04/17 20:58 Albuterol Sulfate (Albuterol 2.5mg/3ml Neb Ud) 2.5 mg HHN Q6HR PRN PRN Reason: sob/WHEEZING/CONGESTION Stop: 11/04/17 20:58 Ascorbic Acid (Vitamin C) 500 mg PO DAILY [facility] Stop: 11/05/17 08:59 Last Admin: 09/09/17 09:33 Dose: 500 mg Atorvastatin Calcium (Lipitor) 40 mg PO HS [facility] Stop: 11/04/17 20:59 Last Admin: 09/08/17 20:37 Dose: 40 mg Bisacodyl (Dulcolax 10 Mg Supp) 10 mg RC DAILY PRN PRN Reason: IF MOM INEFFECTIVE FOR CONSTIP Stop: 11/04/17 20:58 Calcium Carbonate (Os-Nella) 500 mg PO DAILY [facility] Stop: 11/05/17 08:59 Last Admin: 09/09/17 09:33 Dose: 500 mg Docusate Sodium (Colace) 100 mg PO DAILY [facility] Stop: 11/05/17 08:59 Last Admin: 09/09/17 09:33 Dose: 100 mg Enalaprilat (Vasotec) 1.25 mg IVP Q4HR PRN PRN Reason: SBP ABOVE 160 Last Admin: 09/08/17 20:41 Dose: 1.25 mg Fentanyl (Duragesic 25 Mcg/Hr Tdm Patch) 1 patch TD Q72HR [facility] PRN Reason: Protocol Stop: 11/05/17 09:59 Last Admin: 09/06/17 09:28 Dose: 1 patch Ferrous Sulfate (Iron) 325 mg PO DAILY [facility] Stop: 11/05/17 08:59 Last Admin: 09/09/17 09:33 Dose: 325 mg Fluticasone Propionate (Flonase) 1 spr NS DAILY PRN PRN Reason: Congestion Stop: 11/04/17 20:58 Gabapentin (Neurontin) 300 mg PO TID [facility] Stop: 11/04/17 20:59 Last Admin: 09/09/17 09:34 Dose: 300 mg Hydromorphone HCl (Dilaudid) 2 mg IVP Q4HR PRN PRN Reason: Pain (Severe) Stop: 11/04/17 20:05 Last Admin: 09/09/17 01:07 Dose: 2 mg Hydromorphone HCl (Dilaudid) 1 mg IVP Q4HR PRN PRN Reason: Pain (Moderate) Stop: 11/04/17 20:05 Last Admin: 09/09/17 03:35 Dose: 1 mg Hydroxyzine HCl (Atarax) 25 mg PO Q8HR PRN; Protocol PRN Reason: Itching Stop: 11/04/17 20:58 Levofloxacin (Levaquin Pb) 500 mg in 100 mls @ 100 mls/hr IV Q24HR [facility] Stop: 11/05/17 20:59 Last Admin: 09/08/17 20:47 Dose: 100 mls/hr Lactobacillus Rhamnosus (Culturelle 15b) 1 each PO DAILY [facility] Stop: 11/06/17 08:59 Last Admin: 09/09/17 09:34 Dose: 1 each Lorazepam (Ativan) 1 mg IVP Q6HR PRN; Protocol PRN Reason: Agitation Last Admin: 09/08/17 20:43 Dose: 1 mg Magnesium Hydroxide (Milk Of Magnesia) 30 ml PO HS PRN PRN Reason: Constipation Stop: 11/04/17 20:58 Miscellaneous (Vte Chemical Prophylaxis Screen/ Admission) 1 ea [facility] PRN PRN PRN Reason: PROTOCOL Stop: 11/05/17 08:14 Miscellaneous (Probiotic Screen) 1 ea MC PRN PRN PRN Reason: PROTOCOL Stop: 11/05/17 09:14 Morphine Sulfate (Morphine Ir) 15 mg PO Q12H [facility] Stop: 11/04/17 20:59 Last Admin: 09/09/17 09:33 Dose: 15 mg Ondansetron HCl (Zofran) 4 mg IV Q6H PRN PRN Reason: Nausea / Vomiting Stop: 11/04/17 20:05 Pantoprazole Sodium (Protonix) 40 mg PO DAILY [facility] Stop: 11/05/17 08:59 Last Admin: 09/09/17 09:33 Dose: 40 mg Temazepam (Restoril) 15 mg PO HS PRN; Protocol PRN Reason: Insomnia Stop: 11/04/17 20:21 Zinc Sulfate (Zinc Sulfate) 220 mg PO DAILY [facility] Stop: 11/05/17 08:59 Last Admin: 09/09/17 09:33 Dose: 220 mg General: Alert HEENT: Atraumatic Neck: Supple Lungs: Clear to auscultation Abdomen: Bowel sounds - Procedures Procedures: Procedures Procedure Code Date AMPUTATION OF LOWER LEG 85187 09/05/17 DETACHMENT AT LEFT LOWER LEG, LOW, OPEN APPROACH [id number] 09/05/17 Assessment/Plan - Problem List Patient Problems: All Active Problems LEFT LOWER EXTREMITY GANGRENE (Acute) Nutritional Asmnt/Malnutr-PDOC - Dietary Evaluation Malnutrition Findings (Please click <Entered> for more info): Nutritional Asmnt/Malnutrition Start: 09/06/17 17: 07 Text: Status: Complete Freq: Document 09/06/17 17:08 HENG (Rec: 09/06/17 17:17 HENG [email or web address]) Nutritional Asmnt/Malnutrition Patient General Information Nutritional Screening High Risk Consult Diagnosis left foot cellulitis, left foot gangrene Pertinent Medical Hx/Surgical Hx sle, cellulitis left leg, gangrene, gerd, anxiety, hyperlipidemia, anxiety, polyneuropathy, chronic pain syndrom, amputation upper extremity rbka Subjective Information Consult received for wounds. Pt seen taking wound care at time of visit. Pt stated she did not like the lunch, she likes rice, pork chop. Adj BMI for amputation 20.3 Current Diet Order/ Nutrition Support KVNG Pertinent Medications vit C, os-nella, colace, iron, culturelle, levaquin, protonix , piperacillin, zinc Pertinent Labs 2/5 Na 133, Ca 8.5 Nutritional Hx/Data Height 1.6 m Height (Calculated Centimeters) 160.0 Current Weight (lbs) 49.895 kg Weight (Calculated Kilograms) 49.9 Weight (Calculated Grams) 12903.2 [place] Body Weight 109 Body Mass Index (BMI) 19.5 Weight Status Approriate GI Symptoms GI Symptoms None Last BM none Difficult in: None Skin Integrity/Comment: skin tear to left foot and parietal Estimated Nutritional Goals BEE in Kcals: Using Current wt Calories/Kcals/Kg 27-32 Kcals Calculated 0052-9722 Protein: Using Current wt Protein g/k-1.2 Protein Calculated 50-60 Fluid: ml 5589-0945 Nutritional Problem 1. Problem Problem increased nutrition needs ( calorie and protein) Etiology increased metabolic demand for wound healing Signs/Symptoms: gangrened wound in left leg Malnutrition Alert Protein-Calorie Malnutrition N/A Is there a minimum of two criteria No selected? Query Text:Check all the applicable criteria. A minimum of two criteria are recommended for diagnosis of either severe or non-severe malnutrition. Intervention/Recommendation Comments 1. Continue with current diet as ordered. 2. Monitor PO intake, wt, labs and skin integrity 3. F/U as moderate risk in 3-5 days, 09/09-09/11 Expected Outcomes/Goals Expected Outcomes/Goals 1. PO intake to meet at least 75% of nutritional needs. 2. Wt stability, skin to remain intact, labs to approach WNL.
--- NOTE | 2017-09-09 14:11 | Infectious Disease Prog Note ---
Infectious Disease Subjective - Review of Systems Service Date: 09/09/17 Events since last encounter: Left BKA performed. Subjective: No change, no fever. Infectious Disease Objective - Results Result Diagrams: 09/09/17 05:40 09/07/17 05:50 Recent Labs: Laboratory Last Values WBC 9.1 Th/cmm (4.8-10.8) D 09/09/17 05:40 RBC 3.13 Mil/cmm (3.80-5.10) L 09/09/17 05:40 Hgb 10.0 gm/dL (12-16) L 09/09/17 05:40 Hct 30.9 % (41.0-60) L D 09/09/17 05:40 MCV 98.8 fl (81-100) 09/09/17 05:40 MCH 32.0 pg (27.0-31.0) H 09/09/17 05:40 MCHC Differential 32.4 pg (28.0-36.0) 09/09/17 05:40 RDW 13.3 % (11.5-20.0) 09/09/17 05:40 Plt Count 301 Th/cmm (150-400) 09/09/17 05:40 MPV 7.7 fl 09/09/17 05:40 Neutrophils % 69.9 % (40.0-80.0) 09/09/17 05:40 Lymphocytes % 14.3 % (20.0-50.0) L 09/09/17 05:40 Monocytes % 14.9 % (2.0-10.0) H 09/09/17 05:40 Eosinophils % 0.8 % (0.0-5.0) 09/09/17 05:40 Basophils % 0.1 % (0.0-2.0) 09/09/17 05:40 Sodium 138 mEq/L (136-145) 09/07/17 05:50 Potassium 5.5 mEq/L (3.5-5.1) H 09/07/17 05:50 Chloride 109 mEq/L (98-107) H 09/07/17 05:50 Carbon Dioxide 21.2 mEq/L (21.0-31.0) 09/07/17 05:50 Anion Gap 13.3 (7.0-16.0) 09/07/17 05:50 BUN 19 mg/dL (7-25) 09/07/17 05:50 Creatinine 0.6 mg/dL (0.6-1.2) 09/07/17 05:50 Est GFR ( Amer) > 60.0 ml/min (>90) 09/07/17 05:50 Est GFR (Non-Af Amer) > 60.0 ml/min 09/07/17 05:50 BUN/Creatinine Ratio 31.7 09/07/17 05:50 Glucose 79 mg/dL (70-105) 09/07/17 05:50 Whole Bld Lactic Acid 0.81 mmol/L (0.60-1.99) 09/05/17 15:00 Calcium 9.3 mg/dL (8.6-10.3) 09/07/17 05:50 Magnesium 2.0 mg/dL (1.9-2.7) 09/05/17 15:00 Total Bilirubin 0.3 mg/dL (0.3-1.0) 09/05/17 15:00 AST 21 U/L (13-39) 09/05/17 15:00 ALT 8 U/L (7-52) 09/05/17 15:00 Alkaline Phosphatase 129 U/L (34-104) H 09/05/17 15:00 C-Reactive Protein 3.4 mg/dL (0.0-0.9) H 09/05/17 15:00 B-Natriuretic Peptide 158.0 pg/mL (5.0-100.0) H 09/05/17 15:00 Total Protein 8.2 gm/dL (6.0-8.3) 09/05/17 15:00 Albumin 2.8 gm/dL (3.7-5.3) L 09/05/17 15:00 Globulin 5.4 gm/dL 09/05/17 15:00 Albumin/Globulin Ratio 0.5 (1.0-1.8) L 09/05/17 15:00 Triglycerides 62 mg/dL (<150) 09/05/17 15:00 Cholesterol 71 mg/dL (<200) 09/05/17 15:00 LDL Cholesterol Direct 16 mg/dL (75-193) L 09/05/17 15:00 HDL Cholesterol 42 mg/dL (23-92) 09/05/17 15:00 TSH 1.71 uIU/ml (0.34-5.60) 09/05/17 15:00 Urine Source CLEAN C 09/05/17 14:26 Urine Color YELLOW 09/05/17 14:26 Urine Clarity HAZY (CLEAR) 09/05/17 14:26 Urine pH 6.5 (4.6 - 8.0) 09/05/17 14:26 Ur Specific [place] 1.010 (1.005-1.030) 09/05/17 14:26 Urine Protein TRACE mg/dL (NEGATIVE) 09/05/17 14:26 Urine Glucose (UA) NEGATIVE mg/dL (NEGATIVE) 09/05/17 14:26 Urine Ketones NEGATIVE mg/dL (NEGATIVE) 09/05/17 14:26 Urine Blood SMALL (NEGATIVE) H 09/05/17 14:26 Urine Nitrate NEGATIVE (NEGATIVE) 09/05/17 14:26 Urine Bilirubin NEGATIVE (NEGATIVE) 09/05/17 14:26 Urine Urobilinogen 0.2 E.U./dL (0.2 - 1.0) 09/05/17 14:26 Ur Leukocyte Esterase SMALL (NEGATIVE) H 09/05/17 14:26 Urine RBC 5-10 /hpf (0-5) H 09/05/17 14:26 Urine WBC 6-10 /hpf (0-5) H 09/05/17 14:26 Ur Epithelial Cells OCCASIONAL /lpf (FEW) 09/05/17 14:26 Urine Bacteria FEW /hpf (NONE SEEN) 09/05/17 14:26 - Physical Exam Vitals and I&O: Vital Signs Temp 98.0 F 09/09/17 11:36 Pulse 96 09/09/17 11:36 Resp 20 09/09/17 11:36 BP 183/87 09/09/17 11:36 Pulse Ox 100 09/09/17 11:36 Intake & Output 09/08/17 09/09/17 09/09/17 18:59 06:59 18:59 Intake Total 100 1000 1000 Output Total 150 Balance 100 1000 850 Weight (lbs) 49.895 kg Intake: Intake, IV Amount 100 1000 1000 Levofloxacin 500mg/100mL 100 500 mg In 100 ml @ 100 mls/hr IV Q24HR [facility] Rx#: [id number] Sodium Chloride 0.9% 1, 1000 1000 000 ml @ 100 mls/hr IV . Q10H [facility] Rx#:[id number] Output: Urine 150 Active Medications: Current Medications Acetaminophen (Tylenol) 650 mg PO DAILY [facility] Stop: 11/05/17 08:59 Last Admin: 09/09/17 09:33 Dose: 650 mg Acetaminophen (Tylenol) 650 mg PO Q4HR PRN PRN Reason: Mild Pain or Fever >101 Stop: 11/04/17 20:58 Acetaminophen/Hydrocodone Bitart ([place] 10 Mg/325 Mg) 1 tab PO Q8H PRN PRN Reason: MOD/SEVERE PAIN Stop: 11/04/17 20:58 Albuterol Sulfate (Albuterol 2.5mg/3ml Neb Ud) 2.5 mg HHN Q6HR PRN PRN Reason: sob/WHEEZING/CONGESTION Stop: 11/04/17 20:58 Ascorbic Acid (Vitamin C) 500 mg PO DAILY [facility] Stop: 11/05/17 08:59 Last Admin: 09/09/17 09:33 Dose: 500 mg Atorvastatin Calcium (Lipitor) 40 mg PO HS [facility] Stop: 11/04/17 20:59 Last Admin: 09/08/17 20:37 Dose: 40 mg Bisacodyl (Dulcolax 10 Mg Supp) 10 mg RC DAILY PRN PRN Reason: IF MOM INEFFECTIVE FOR CONSTIP Stop: 11/04/17 20:58 Calcium Carbonate (Os-Nella) 500 mg PO DAILY [facility] Stop: 11/05/17 08:59 Last Admin: 09/09/17 09:33 Dose: 500 mg Docusate Sodium (Colace) 100 mg PO DAILY [facility] Stop: 11/05/17 08:59 Last Admin: 09/09/17 09:33 Dose: 100 mg Enalaprilat (Vasotec) 1.25 mg IVP Q4HR PRN PRN Reason: SBP ABOVE 160 Last Admin: 09/08/17 20:41 Dose: 1.25 mg Fentanyl (Duragesic 25 Mcg/Hr Tdm Patch) 1 patch TD Q72HR [facility] PRN Reason: Protocol Stop: 11/05/17 09:59 Last Admin: 09/06/17 09:28 Dose: 1 patch Ferrous Sulfate (Iron) 325 mg PO DAILY [facility] Stop: 11/05/17 08:59 Last Admin: 09/09/17 09:33 Dose: 325 mg Fluticasone Propionate (Flonase) 1 spr NS DAILY PRN PRN Reason: Congestion Stop: 11/04/17 20:58 Gabapentin (Neurontin) 300 mg PO TID [facility] Stop: 11/04/17 20:59 Last Admin: 09/09/17 09:34 Dose: 300 mg Hydromorphone HCl (Dilaudid) 2 mg IVP Q4HR PRN PRN Reason: Pain (Severe) Stop: 11/04/17 20:05 Last Admin: 09/09/17 01:07 Dose: 2 mg Hydromorphone HCl (Dilaudid) 1 mg IVP Q4HR PRN PRN Reason: Pain (Moderate) Stop: 11/04/17 20:05 Last Admin: 09/09/17 03:35 Dose: 1 mg Hydroxyzine HCl (Atarax) 25 mg PO Q8HR PRN; Protocol PRN Reason: Itching Stop: 11/04/17 20:58 Levofloxacin (Levaquin Pb) 500 mg in 100 mls @ 100 mls/hr IV Q24HR [facility] Stop: 11/05/17 20:59 Last Admin: 09/08/17 20:47 Dose: 100 mls/hr Lactobacillus Rhamnosus (Culturelle 15b) 1 each PO DAILY [facility] Stop: 11/06/17 08:59 Last Admin: 09/09/17 09:34 Dose: 1 each Lorazepam (Ativan) 1 mg IVP Q6HR PRN; Protocol PRN Reason: Agitation Last Admin: 09/08/17 20:43 Dose: 1 mg Magnesium Hydroxide (Milk Of Magnesia) 30 ml PO HS PRN PRN Reason: Constipation Stop: 11/04/17 20:58 Miscellaneous (Vte Chemical Prophylaxis Screen/ Admission) 1 ea [facility] PRN PRN PRN Reason: PROTOCOL Stop: 11/05/17 08:14 Miscellaneous (Probiotic Screen) 1 ea MC PRN PRN PRN Reason: PROTOCOL Stop: 11/05/17 09:14 Morphine Sulfate (Morphine Ir) 15 mg PO Q12H [facility] Stop: 11/04/17 20:59 Last Admin: 09/09/17 09:33 Dose: 15 mg Ondansetron HCl (Zofran) 4 mg IV Q6H PRN PRN Reason: Nausea / Vomiting Stop: 11/04/17 20:05 Pantoprazole Sodium (Protonix) 40 mg PO DAILY [facility] Stop: 11/05/17 08:59 Last Admin: 09/09/17 09:33 Dose: 40 mg Temazepam (Restoril) 15 mg PO HS PRN; Protocol PRN Reason: Insomnia Stop: 11/04/17 20:21 Zinc Sulfate (Zinc Sulfate) 220 mg PO DAILY [facility] Stop: 11/05/17 08:59 Last Admin: 09/09/17 09:33 Dose: 220 mg General: no acute distress, well developed, well nourished HEENT: atraumatic, normocephalic Neck: supple, no thyromegaly, no lymphadenopathy, no rigid Cardiovascular: S1S2, regular Lungs: clear to auscultation bilaterally, clear to percussion Abdomen: soft, no tender, no distended, no mass Extremities: other (right BKA ( old) Left BKA ( new).), no cyanosis, no clubbing Neurological: awake, alert, oriented - Procedures Procedures: Procedures Procedure Code Date AMPUTATION OF LOWER LEG 33774 09/05/17 DETACHMENT AT LEFT LOWER LEG, LOW, OPEN APPROACH [id number] 09/05/17 Infectious Disease Assmt/Plan - Problem List Patient Problems: All Active Problems LEFT LOWER EXTREMITY GANGRENE (Acute) - Assessment Assessment: Left foot gangrene. Lupus s/p BKA Left. - Plan Plan: CPM. May dc antibiotics ,if ok with Dr Rodriguez. Wound care. Nutritional Asmnt/Malnutr-PDOC - Dietary Evaluation Malnutrition Findings (Please click <Entered> for more info): Nutritional Asmnt/Malnutrition Start: 09/06/17 17: 07 Text: Status: Complete Freq: Document 09/06/17 17:08 LCHENG (Rec: 09/06/17 17:17 HENG [email or web address]) Nutritional Asmnt/Malnutrition Patient General Information Nutritional Screening High Risk Consult Diagnosis left foot cellulitis, left foot gangrene Pertinent Medical Hx/Surgical Hx sle, cellulitis left leg, gangrene, gerd, anxiety, hyperlipidemia, anxiety, polyneuropathy, chronic pain syndrom, amputation upper extremity rbka Subjective Information Consult received for wounds. Pt seen taking wound care at time of visit. Pt stated she did not like the lunch, she likes rice, pork chop. Adj BMI for amputation 20.3 Current Diet Order/ Nutrition Support KVNG Pertinent Medications vit C, os-nella, colace, iron, culturelle, levaquin, protonix , piperacillin, zinc Pertinent Labs 2/ Na 133, Ca 8.5 Nutritional Hx/Data Height 1.6 m Height (Calculated Centimeters) 160.0 Current Weight (lbs) 49.895 kg Weight (Calculated Kilograms) 49.9 Weight (Calculated Grams) 36324.2 [place] Body Weight 109 Body Mass Index (BMI) 19.5 Weight Status Approriate GI Symptoms GI Symptoms None Last BM none Difficult in: None Skin Integrity/Comment: skin tear to left foot and parietal Estimated Nutritional Goals BEE in Kcals: Using Current wt Calories/Kcals/Kg 27-32 Kcals Calculated 0117-2335 Protein: Using Current wt Protein g/k-1.2 Protein Calculated 50-60 Fluid: ml 5409-5810 Nutritional Problem 1. Problem Problem increased nutrition needs ( calorie and protein) Etiology increased metabolic demand for wound healing Signs/Symptoms: gangrened wound in left leg Malnutrition Alert Protein-Calorie Malnutrition N/A Is there a minimum of two criteria No selected? Query Text:Check all the applicable criteria. A minimum of two criteria are recommended for diagnosis of either severe or non-severe malnutrition. Intervention/Recommendation Comments 1. Continue with current diet as ordered. 2. Monitor PO intake, wt, labs and skin integrity 3. F/U as moderate risk in 3-5 days, 09/09-09/11 Expected Outcomes/Goals Expected Outcomes/Goals 1. PO intake to meet at least 75% of nutritional needs. 2. Wt stability, skin to remain intact, labs to approach WNL.
[2017-09-09] MEDS: Hydrocodone/APAP 10 mg/325 mg Tab PO PRN (14:35)
--- NOTE | 2017-09-09 17:30 | Internal Medicine Prog Note ---
Internal Medicine Subjective - Subjective Service Date: 09/09/17 Patient is:: awake, verbal Per staff patient has:: tolerating meds Internal Medicine Objective - Results Result Diagrams: 09/09/17 05:40 09/07/17 05:50 Recent Labs: Laboratory Last Values WBC 9.1 Th/cmm (4.8-10.8) D 09/09/17 05:40 RBC 3.13 Mil/cmm (3.80-5.10) L 09/09/17 05:40 Hgb 10.0 gm/dL (12-16) L 09/09/17 05:40 Hct 30.9 % (41.0-60) L D 09/09/17 05:40 MCV 98.8 fl (81-100) 09/09/17 05:40 MCH 32.0 pg (27.0-31.0) H 09/09/17 05:40 MCHC Differential 32.4 pg (28.0-36.0) 09/09/17 05:40 RDW 13.3 % (11.5-20.0) 09/09/17 05:40 Plt Count 301 Th/cmm (150-400) 09/09/17 05:40 MPV 7.7 fl 09/09/17 05:40 Neutrophils % 69.9 % (40.0-80.0) 09/09/17 05:40 Lymphocytes % 14.3 % (20.0-50.0) L 09/09/17 05:40 Monocytes % 14.9 % (2.0-10.0) H 09/09/17 05:40 Eosinophils % 0.8 % (0.0-5.0) 09/09/17 05:40 Basophils % 0.1 % (0.0-2.0) 09/09/17 05:40 Sodium 138 mEq/L (136-145) 09/07/17 05:50 Potassium 5.5 mEq/L (3.5-5.1) H 09/07/17 05:50 Chloride 109 mEq/L (98-107) H 09/07/17 05:50 Carbon Dioxide 21.2 mEq/L (21.0-31.0) 09/07/17 05:50 Anion Gap 13.3 (7.0-16.0) 02/07/18 05:50 BUN 19 mg/dL (7-25) 09/07/17 05:50 Creatinine 0.6 mg/dL (0.6-1.2) 09/07/17 05:50 Est GFR ( Amer) > 60.0 ml/min (>90) 09/07/17 05:50 Est GFR (Non-Af Amer) > 60.0 ml/min 09/07/17 05:50 BUN/Creatinine Ratio 31.7 09/07/17 05:50 Glucose 79 mg/dL (70-105) 09/07/17 05:50 Whole Bld Lactic Acid 0.81 mmol/L (0.60-1.99) 09/05/17 15:00 Calcium 9.3 mg/dL (8.6-10.3) 09/07/17 05:50 Magnesium 2.0 mg/dL (1.9-2.7) 09/05/17 15:00 Total Bilirubin 0.3 mg/dL (0.3-1.0) 09/05/17 15:00 AST 21 U/L (13-39) 09/05/17 15:00 ALT 8 U/L (7-52) 09/05/17 15:00 Alkaline Phosphatase 129 U/L (34-104) H 09/05/17 15:00 C-Reactive Protein 3.4 mg/dL (0.0-0.9) H 09/05/17 15:00 B-Natriuretic Peptide 158.0 pg/mL (5.0-100.0) H 09/05/17 15:00 Total Protein 8.2 gm/dL (6.0-8.3) 09/05/17 15:00 Albumin 2.8 gm/dL (3.7-5.3) L 09/05/17 15:00 Globulin 5.4 gm/dL 09/05/17 15:00 Albumin/Globulin Ratio 0.5 (1.0-1.8) L 09/05/17 15:00 Triglycerides 62 mg/dL (<150) 09/05/17 15:00 Cholesterol 71 mg/dL (<200) 09/05/17 15:00 LDL Cholesterol Direct 16 mg/dL (75-193) L 09/05/17 15:00 HDL Cholesterol 42 mg/dL (23-92) 09/05/17 15:00 TSH 1.71 uIU/ml (0.34-5.60) 09/05/17 15:00 Urine Source CLEAN C 09/05/17 14:26 Urine Color YELLOW 09/05/17 14:26 Urine Clarity HAZY (CLEAR) 09/05/17 14:26 Urine pH 6.5 (4.6 - 8.0) 09/05/17 14:26 Ur Specific [place] 1.010 (1.005-1.030) 09/05/17 14:26 Urine Protein TRACE mg/dL (NEGATIVE) 09/05/17 14:26 Urine Glucose (UA) NEGATIVE mg/dL (NEGATIVE) 09/05/17 14:26 Urine Ketones NEGATIVE mg/dL (NEGATIVE) 09/05/17 14:26 Urine Blood SMALL (NEGATIVE) H 09/05/17 14:26 Urine Nitrate NEGATIVE (NEGATIVE) 09/05/17 14:26 Urine Bilirubin NEGATIVE (NEGATIVE) 09/05/17 14:26 Urine Urobilinogen 0.2 E.U./dL (0.2 - 1.0) 09/05/17 14:26 Ur Leukocyte Esterase SMALL (NEGATIVE) H 09/05/17 14:26 Urine RBC 5-10 /hpf (0-5) H 09/05/17 14:26 Urine WBC 6-10 /hpf (0-5) H 09/05/17 14:26 Ur Epithelial Cells OCCASIONAL /lpf (FEW) 09/05/17 14:26 Urine Bacteria FEW /hpf (NONE SEEN) 09/05/17 14:26 - Physical Exam Vitals and I&O: Vital Signs Temp 97.7 F 09/09/17 15:23 Pulse 110 09/09/17 15:23 Resp 19 09/09/17 15:23 BP 171/90 09/09/17 15:23 Pulse Ox 98 09/09/17 15:23 Intake & Output 09/08/17 09/09/17 09/09/17 18:59 06:59 18:59 Intake Total 100 1000 1000 Output Total 150 Balance 100 1000 850 Weight (lbs) 110 lb Intake: Intake, IV Amount 100 1000 1000 Levofloxacin 500mg/100mL 100 500 mg In 100 ml @ 100 mls/hr IV Q24HR [facility] Rx#: [id number] Sodium Chloride 0.9% 1, 1000 1000 000 ml @ 100 mls/hr IV . Q10H [facility] Rx#:[id number] Output: Urine 150 Active Medications: Current Medications Acetaminophen (Tylenol) 650 mg PO DAILY [facility] Stop: 11/05/17 08:59 Last Admin: 09/09/17 09:33 Dose: 650 mg Acetaminophen (Tylenol) 650 mg PO Q4HR PRN PRN Reason: Mild Pain or Fever >101 Stop: 11/04/17 20:58 Acetaminophen/Hydrocodone Bitart ([place] 10 Mg/325 Mg) 1 tab PO Q8H PRN PRN Reason: MOD/SEVERE PAIN Stop: 11/04/17 20:58 Last Admin: 09/09/17 14:35 Dose: 1 tab Albuterol Sulfate (Albuterol 2.5mg/3ml Neb Ud) 2.5 mg HHN Q6HR PRN PRN Reason: sob/WHEEZING/CONGESTION Stop: 11/04/17 20:58 Ascorbic Acid (Vitamin C) 500 mg PO DAILY [facility] Stop: 11/05/17 08:59 Last Admin: 09/09/17 09:33 Dose: 500 mg Atorvastatin Calcium (Lipitor) 40 mg PO HS [facility] Stop: 11/04/17 20:59 Last Admin: 09/08/17 20:37 Dose: 40 mg Bisacodyl (Dulcolax 10 Mg Supp) 10 mg RC DAILY PRN PRN Reason: IF MOM INEFFECTIVE FOR CONSTIP Stop: 11/04/17 20:58 Calcium Carbonate (Os-Won) 500 mg PO DAILY [facility] Stop: 11/05/17 08:59 Last Admin: 09/09/17 09:33 Dose: 500 mg Docusate Sodium (Colace) 100 mg PO DAILY [facility] Stop: 11/05/17 08:59 Last Admin: 09/09/17 09:33 Dose: 100 mg Enalaprilat (Vasotec) 1.25 mg IVP Q4HR PRN PRN Reason: SBP ABOVE 160 Last Admin: 09/08/17 20:41 Dose: 1.25 mg Fentanyl (Duragesic 25 Mcg/Hr Tdm Patch) 1 patch TD Q72HR [facility] PRN Reason: Protocol Stop: 11/05/17 09:59 Last Admin: 09/06/17 09:28 Dose: 1 patch Ferrous Sulfate (Iron) 325 mg PO DAILY [facility] Stop: 11/05/17 08:59 Last Admin: 09/09/17 09:33 Dose: 325 mg Fluticasone Propionate (Flonase) 1 spr NS DAILY PRN PRN Reason: Congestion Stop: 11/04/17 20:58 Gabapentin (Neurontin) 300 mg PO TID [facility] Stop: 11/04/17 20:59 Last Admin: 09/09/17 16:02 Dose: 300 mg Hydromorphone HCl (Dilaudid) 2 mg IVP Q4HR PRN PRN Reason: Pain (Severe) Stop: 11/04/17 20:05 Last Admin: 09/09/17 01:07 Dose: 2 mg Hydromorphone HCl (Dilaudid) 1 mg IVP Q4HR PRN PRN Reason: Pain (Moderate) Stop: 11/04/17 20:05 Last Admin: 09/09/17 03:35 Dose: 1 mg Hydroxyzine HCl (Atarax) 25 mg PO Q8HR PRN; Protocol PRN Reason: Itching Stop: 11/04/17 20:58 Levofloxacin (Levaquin Pb) 500 mg in 100 mls @ 100 mls/hr IV Q24HR [facility] Stop: 11/05/17 20:59 Last Admin: 09/08/17 20:47 Dose: 100 mls/hr Lactobacillus Rhamnosus (Culturelle 15b) 1 each PO DAILY [facility] Stop: 11/06/17 08:59 Last Admin: 09/09/17 09:34 Dose: 1 each Lorazepam (Ativan) 1 mg IVP Q6HR PRN; Protocol PRN Reason: Agitation Last Admin: 09/08/17 20:43 Dose: 1 mg Magnesium Hydroxide (Milk Of Magnesia) 30 ml PO HS PRN PRN Reason: Constipation Stop: 11/04/17 20:58 Miscellaneous (Vte Chemical Prophylaxis Screen/ Admission) 1 ea [facility] PRN PRN PRN Reason: PROTOCOL Stop: 11/05/17 08:14 Miscellaneous (Probiotic Screen) 1 ea MC PRN PRN PRN Reason: PROTOCOL Stop: 11/05/17 09:14 Morphine Sulfate (Morphine Ir) 15 mg PO Q12H [facility] Stop: 11/04/17 20:59 Last Admin: 09/09/17 09:33 Dose: 15 mg Ondansetron HCl (Zofran) 4 mg IV Q6H PRN PRN Reason: Nausea / Vomiting Stop: 11/04/17 20:05 Pantoprazole Sodium (Protonix) 40 mg PO DAILY [facility] Stop: 11/05/17 08:59 Last Admin: 09/09/17 09:33 Dose: 40 mg Temazepam (Restoril) 15 mg PO HS PRN; Protocol PRN Reason: Insomnia Stop: 11/04/17 20:21 Zinc Sulfate (Zinc Sulfate) 220 mg PO DAILY [facility] Stop: 11/05/17 08:59 Last Admin: 09/09/17 09:33 Dose: 220 mg General: alert HEENT: NC/AT, PERRLA Neck: Supple Lungs: CTAB Abdomen: soft, non-tender Neurological: alert - Procedures Procedures: Procedures Procedure Code Date AMPUTATION OF LOWER LEG 43492 09/05/17 DETACHMENT AT LEFT LOWER LEG, LOW, OPEN APPROACH [id number] 09/05/17 Internal Medicine Assmt/Plan - Assessment Assessment: s/p left bka sle gerd anxiety hyperlipidemia anxiety polyneuropathy chronic pain syndrome - Plan Plan: pain mgmt wound care ivabx continue current orders Nutritional Asmnt/Malnutr-PDOC - Dietary Evaluation Malnutrition Findings (Please click <Entered> for more info): Nutritional Asmnt/Malnutrition Start: 09/06/17 17: 07 Text: Status: Complete Freq: Document 09/06/17 17:08 ALEXANDER (Rec: 09/06/17 17:17 [id number] [email or web address]) Nutritional Asmnt/Malnutrition Patient General Information Nutritional Screening High Risk Consult Diagnosis left foot cellulitis, left foot gangrene Pertinent Medical Hx/Surgical Hx sle, cellulitis left leg, gangrene, gerd, anxiety, hyperlipidemia, anxiety, polyneuropathy, chronic pain syndrom, amputation upper extremity rbka Subjective Information Consult received for wounds. Pt seen taking wound care at time of visit. Pt stated she did not like the lunch, she likes rice, pork chop. Adj BMI for amputation 20.3 Current Diet Order/ Nutrition Support KVNG Pertinent Medications vit C, os-won, colace, iron, culturelle, levaquin, protonix , piperacillin, zinc Pertinent Labs 2/5 Na 133, Ca 8.5 Nutritional Hx/Data Height 5 ft 3 in Height (Calculated Centimeters) 160.0 Current Weight (lbs) 110 lb Weight (Calculated Kilograms) 49.9 Weight (Calculated Grams) 64835.2 [place] Body Weight 109 Body Mass Index (BMI) 19.5 Weight Status Approriate GI Symptoms GI Symptoms None Last BM none Difficult in: None Skin Integrity/Comment: skin tear to left foot and parietal Estimated Nutritional Goals BEE in Kcals: Using Current wt Calories/Kcals/Kg 27-32 Kcals Calculated 5950-4680 Protein: Using Current wt Protein g/k-1.2 Protein Calculated 50-60 Fluid: ml 3801-9105 Nutritional Problem 1. Problem Problem increased nutrition needs ( calorie and protein) Etiology increased metabolic demand for wound healing Signs/Symptoms: gangrened wound in left leg Malnutrition Alert Protein-Calorie Malnutrition N/A Is there a minimum of two criteria No selected? Query Text:Check all the applicable criteria. A minimum of two criteria are recommended for diagnosis of either severe or non-severe malnutrition. Intervention/Recommendation Comments 1. Continue with current diet as ordered. 2. Monitor PO intake, wt, labs and skin integrity 3. F/U as moderate risk in 3-5 days, 09/09-09/11 Expected Outcomes/Goals Expected Outcomes/Goals 1. PO intake to meet at least 75% of nutritional needs. 2. Wt stability, skin to remain intact, labs to approach WNL.
[2017-09-09] MEDS: Levofloxacin 500mg/100mL 500 MG/100 ML BAG IV SCH (20:16)
[2017-09-09] MEDS: Atorvastatin Calcium 10 MG TAB PO SCH (20:17)
[2017-09-09 22:32] LABS: ALB/GLOB RATIO 0.5 (1.0-1.8); ALBUMIN 2.7 gm/dL (3.7-5.3); ALKALINE PHOSPHATASE 87 U/L (34-104); ANION GAP 14.5 (7.0-16.0); BILIRUBIN,TOTAL 0.6 mg/dL (0.3-1.0); BUN - UREA NITROGEN 12 mg/dL (7-25); CALCIUM SERUM 8.7 mg/dL (8.6-10.3); CARBON DIOXIDE 16.9 mEq/L (21.0-31.0); CHLORIDE 103 mEq/L (98-107); CREATININE - SERUM 0.7 mg/dL (0.6-1.2); GFR AFRICAN-AMERICAN > 60.0 ml/min (>90); GFR NON AFRICAN-AMERICAN > 60.0 ml/min; GLUCOSE 98 mg/dL (70-105); POTASSIUM SERUM 4.4 mEq/L (3.5-5.1); SGOT 54 U/L (13-39); SGPT/ALT 9 U/L (7-52); SODIUM SERUM 130 mEq/L (136-145); TOTAL PROTEIN,SERUM 8.2 gm/dL (6.0-8.3)
[2017-09-10] MEDS: HYDROmorphone 2 mg/mL 1mL Vial IVP PRN ×3 (03:46→13:06)
[2017-09-10] MEDS: Hydrocodone/APAP 10 mg/325 mg Tab PO PRN ×2 (05:23→20:03)
[2017-09-10] MEDS: Ferrous Sulfate 325 MG TAB PO SCH (09:35)
[2017-09-10] MEDS: Multivitamin w/ Minerals Tab PO SCH (09:36)
[2017-09-10] MEDS: Lactobacillus Rhamnosus GG 15 Billion CFU CAP.SPRINK PO SCH (09:38)
[2017-09-10] MEDS: Pantoprazole 40 mg EC Tab PO SCH (09:47)
[2017-09-10] MEDS: HYDROmorphone 1 mg/mL 1mL Syr IVP PRN (17:07)
--- NOTE | 2017-09-10 21:19 | Progress Notes ---
DATE: 09/10/2017 SUBJECTIVE: The patient was seen in the room. The patient is having dinner. The patient complains of intermittent generalized body pain. Otherwise, the patient appears to be in no acute distress. OBJECTIVE: VITAL SIGNS: Temperature 97.6, heart rate of 98, blood pressure of 94/55, respirations of 18, and 97% on room air. HEENT: Head is atraumatic and normocephalic. Eyes: Bilateral conjunctivae are clear. Bilateral pupils equal, round and reactive. NECK: Supple. No JVD. CARDIOVASCULAR: S1 and S2 without murmur. PULMONARY: Clear to auscultation. GASTROINTESTINAL: Soft and nontender without guarding. Positive bowel sounds. MUSCULOSKELETAL: No clubbing. No cyanosis. Positive left below knee amputation. ASSESSMENT: 1. Systemic lupus erythematosus. 2. Status post left below-knee amputation. 3. Hyperlipidemia. 4. Polyneuropathy. 5. Chronic pain syndrome. 6. Anxiety. PLAN: We will continue current treatment. We will provide pain management as needed. Treatment plans were discussed with the patient's nurse. Treatment plans were discussed with Dr. Guardado. JOB# [id number]
[2017-09-10] MEDS: Atorvastatin Calcium 10 MG TAB PO SCH (22:18)
[2017-09-10] MEDS: Levofloxacin 500mg/100mL 500 MG/100 ML BAG IV SCH (22:19)
--- NOTE | 2017-09-10 23:39 | Infectious Disease Prog Note ---
Infectious Disease Subjective - Review of Systems Service Date: 09/10/17 Subjective: No change, no fever. Infectious Disease Objective - Results Result Diagrams: 09/09/17 05:40 09/07/17 05:50 Recent Labs: Laboratory Last Values WBC 9.1 Th/cmm (4.8-10.8) D 09/09/17 05:40 RBC 3.13 Mil/cmm (3.80-5.10) L 09/09/17 05:40 Hgb 10.0 gm/dL (12-16) L 09/09/17 05:40 Hct 30.9 % (41.0-60) L D 09/09/17 05:40 MCV 98.8 fl (81-100) 09/09/17 05:40 MCH 32.0 pg (27.0-31.0) H 09/09/17 05:40 MCHC Differential 32.4 pg (28.0-36.0) 09/09/17 05:40 RDW 13.3 % (11.5-20.0) 09/09/17 05:40 Plt Count 301 Th/cmm (150-400) 09/09/17 05:40 MPV 7.7 fl 09/09/17 05:40 Neutrophils % 69.9 % (40.0-80.0) 09/09/17 05:40 Lymphocytes % 14.3 % (20.0-50.0) L 09/09/17 05:40 Monocytes % 14.9 % (2.0-10.0) H 09/09/17 05:40 Eosinophils % 0.8 % (0.0-5.0) 09/09/17 05:40 Basophils % 0.1 % (0.0-2.0) 09/09/17 05:40 Sodium 138 mEq/L (136-145) 09/07/17 05:50 Potassium 5.5 mEq/L (3.5-5.1) H 09/07/17 05:50 Chloride 109 mEq/L (98-107) H 09/07/17 05:50 Carbon Dioxide 21.2 mEq/L (21.0-31.0) 09/07/17 05:50 Anion Gap 13.3 (7.0-16.0) 09/07/17 05:50 BUN 19 mg/dL (7-25) 09/07/17 05:50 Creatinine 0.6 mg/dL (0.6-1.2) 09/07/17 05:50 Est GFR ( Amer) > 60.0 ml/min (>90) 09/07/17 05:50 Est GFR (Non-Af Amer) > 60.0 ml/min 09/07/17 05:50 BUN/Creatinine Ratio 31.7 09/07/17 05:50 Glucose 79 mg/dL (70-105) 09/07/17 05:50 Whole Bld Lactic Acid 0.81 mmol/L (0.60-1.99) 09/05/17 15:00 Calcium 9.3 mg/dL (8.6-10.3) 09/07/17 05:50 Magnesium 2.0 mg/dL (1.9-2.7) 09/05/17 15:00 Total Bilirubin 0.3 mg/dL (0.3-1.0) 09/05/17 15:00 AST 21 U/L (13-39) 09/05/17 15:00 ALT 8 U/L (7-52) 09/05/17 15:00 Alkaline Phosphatase 129 U/L (34-104) H 09/05/17 15:00 C-Reactive Protein 3.4 mg/dL (0.0-0.9) H 09/05/17 15:00 B-Natriuretic Peptide 158.0 pg/mL (5.0-100.0) H 09/05/17 15:00 Total Protein 8.2 gm/dL (6.0-8.3) 09/05/17 15:00 Albumin 2.8 gm/dL (3.7-5.3) L 09/05/17 15:00 Globulin 5.4 gm/dL 09/05/17 15:00 Albumin/Globulin Ratio 0.5 (1.0-1.8) L 09/05/17 15:00 Triglycerides 62 mg/dL (<150) 09/05/17 15:00 Cholesterol 71 mg/dL (<200) 09/05/17 15:00 LDL Cholesterol Direct 16 mg/dL (75-193) L 09/05/17 15:00 HDL Cholesterol 42 mg/dL (23-92) 09/05/17 15:00 TSH 1.71 uIU/ml (0.34-5.60) 09/05/17 15:00 Urine Source CLEAN C 09/05/17 14:26 Urine Color YELLOW 09/05/17 14:26 Urine Clarity HAZY (CLEAR) 09/05/17 14:26 Urine pH 6.5 (4.6 - 8.0) 09/05/17 14:26 Ur Specific [place] 1.010 (1.005-1.030) 09/05/17 14:26 Urine Protein TRACE mg/dL (NEGATIVE) 09/05/17 14:26 Urine Glucose (UA) NEGATIVE mg/dL (NEGATIVE) 09/05/17 14:26 Urine Ketones NEGATIVE mg/dL (NEGATIVE) 09/05/17 14:26 Urine Blood SMALL (NEGATIVE) H 09/05/17 14:26 Urine Nitrate NEGATIVE (NEGATIVE) 09/05/17 14:26 Urine Bilirubin NEGATIVE (NEGATIVE) 09/05/17 14:26 Urine Urobilinogen 0.2 E.U./dL (0.2 - 1.0) 09/05/17 14:26 Ur Leukocyte Esterase SMALL (NEGATIVE) H 09/05/17 14:26 Urine RBC 5-10 /hpf (0-5) H 09/05/17 14:26 Urine WBC 6-10 /hpf (0-5) H 09/05/17 14:26 Ur Epithelial Cells OCCASIONAL /lpf (FEW) 09/05/17 14:26 Urine Bacteria FEW /hpf (NONE SEEN) 09/05/17 14:26 - Physical Exam Vitals and I&O: Vital Signs Temp 97.6 F 09/10/17 17:00 Pulse 82 09/10/17 19:40 Resp 22 09/10/17 19:40 BP 94/55 09/10/17 17:00 Pulse Ox 94 09/10/17 19:40 Intake & Output 09/10/17 09/10/17 09/11/17 06:59 18:59 06:59 Intake Total 800 500 Balance 800 500 Weight (lbs) 49.895 kg 49.895 kg Intake: Intake, IV Amount 100 Levofloxacin 500mg/100mL 100 500 mg In 100 ml @ 100 mls/hr IV Q24HR [facility] Rx#: [id number] Oral 700 500 Other: # Voids 1 2 # Bowel Movements 1 Active Medications: Current Medications Acetaminophen (Tylenol) 650 mg PO DAILY [facility] Stop: 11/05/17 08:59 Last Admin: 09/10/17 09:34 Dose: 650 mg Acetaminophen (Tylenol) 650 mg PO Q4HR PRN PRN Reason: Mild Pain or Fever >101 Stop: 11/04/17 20:58 Acetaminophen/Hydrocodone Bitart ([place] 10 Mg/325 Mg) 1 tab PO Q8H PRN PRN Reason: MOD/SEVERE PAIN Stop: 11/04/17 20:58 Last Admin: 09/10/17 20:03 Dose: 1 tab Albuterol Sulfate (Albuterol 2.5mg/3ml Neb Ud) 2.5 mg HHN Q6HR PRN PRN Reason: sob/WHEEZING/CONGESTION Stop: 11/04/17 20:58 Ascorbic Acid (Vitamin C) 500 mg PO DAILY [facility] Stop: 11/05/17 08:59 Last Admin: 09/10/17 09:36 Dose: 500 mg Atorvastatin Calcium (Lipitor) 40 mg PO HS [facility] Stop: 11/04/17 20:59 Last Admin: 09/10/17 22:18 Dose: 40 mg Bisacodyl (Dulcolax 10 Mg Supp) 10 mg RC DAILY PRN PRN Reason: IF MOM INEFFECTIVE FOR CONSTIP Stop: 11/04/17 20:58 Calcium Carbonate (Os-Won) 500 mg PO DAILY [facility] Stop: 11/05/17 08:59 Last Admin: 09/10/17 09:39 Dose: 500 mg Docusate Sodium (Colace) 100 mg PO DAILY [facility] Stop: 11/05/17 08:59 Last Admin: 09/10/17 09:36 Dose: 100 mg Enalaprilat (Vasotec) 1.25 mg IVP Q4HR PRN PRN Reason: SBP ABOVE 160 Last Admin: 09/08/17 20:41 Dose: 1.25 mg Fentanyl (Duragesic 25 Mcg/Hr Tdm Patch) 1 patch TD Q72HR [facility] PRN Reason: Protocol Stop: 11/05/17 09:59 Last Admin: 09/06/17 09:28 Dose: 1 patch Ferrous Sulfate (Iron) 325 mg PO DAILY [facility] Stop: 11/05/17 08:59 Last Admin: 09/10/17 09:35 Dose: 325 mg Fluticasone Propionate (Flonase) 1 spr NS DAILY PRN PRN Reason: Congestion Stop: 11/04/17 20:58 Gabapentin (Neurontin) 300 mg PO TID [facility] Stop: 11/04/17 20:59 Last Admin: 09/10/17 22:19 Dose: 300 mg Hydromorphone HCl (Dilaudid) 2 mg IVP Q4HR PRN PRN Reason: Pain (Severe) Stop: 11/04/17 20:05 Last Admin: 09/10/17 13:06 Dose: 2 mg Hydromorphone HCl (Dilaudid) 1 mg IVP Q4HR PRN PRN Reason: Pain (Moderate) Stop: 11/04/17 20:05 Last Admin: 09/10/17 17:07 Dose: 1 mg Hydroxyzine HCl (Atarax) 25 mg PO Q8HR PRN; Protocol PRN Reason: Itching Stop: 11/04/17 20:58 Levofloxacin (Levaquin Pb) 500 mg in 100 mls @ 100 mls/hr IV Q24HR [facility] Stop: 11/05/17 20:59 Last Admin: 09/10/17 22:19 Dose: 100 mls/hr Lactobacillus Rhamnosus (Culturelle 15b) 1 each PO DAILY [facility] Stop: 11/06/17 08:59 Last Admin: 09/10/17 09:38 Dose: 1 each Lorazepam (Ativan) 1 mg IVP Q6HR PRN; Protocol PRN Reason: Agitation Last Admin: 09/08/17 20:43 Dose: 1 mg Magnesium Hydroxide (Milk Of Magnesia) 30 ml PO HS PRN PRN Reason: Constipation Stop: 11/04/17 20:58 Miscellaneous (Vte Chemical Prophylaxis Screen/ Admission) 1 ea MC PRN PRN PRN Reason: PROTOCOL Stop: 11/05/17 08:14 Miscellaneous (Probiotic Screen) 1 ea MC PRN PRN PRN Reason: PROTOCOL Stop: 11/05/17 09:14 Morphine Sulfate (Morphine Ir) 15 mg PO Q12H [facility] Stop: 11/04/17 20:59 Last Admin: 09/10/17 22:18 Dose: 15 mg Ondansetron HCl (Zofran) 4 mg IV Q6H PRN PRN Reason: Nausea / Vomiting Stop: 11/04/17 20:05 Pantoprazole Sodium (Protonix) 40 mg PO DAILY [facility] Stop: 11/05/17 08:59 Last Admin: 09/10/17 09:47 Dose: Not Given Temazepam (Restoril) 15 mg PO HS PRN; Protocol PRN Reason: Insomnia Stop: 11/04/17 20:21 Zinc Sulfate (Zinc Sulfate) 220 mg PO DAILY [facility] Stop: 11/05/17 08:59 Last Admin: 09/10/17 09:39 Dose: 220 mg General: no acute distress, well developed, well nourished HEENT: atraumatic, normocephalic, PERRLA, EOMI, moist mucous membrane Neck: supple, no thyromegaly, no lymphadenopathy Cardiovascular: S1S2, regular Lungs: clear to auscultation bilaterally, clear to percussion Abdomen: soft, no tender, no distended, no mass Extremities: other (b/l BKA, left ( New).), no cyanosis, no clubbing Neurological: awake, alert, oriented Skin: intact - Procedures Procedures: Procedures Procedure Code Date AMPUTATION OF LOWER LEG 76258 09/05/17 DETACHMENT AT LEFT LOWER LEG, LOW, OPEN APPROACH [id number] 09/05/17 Infectious Disease Assmt/Plan - Problem List Patient Problems: All Active Problems LEFT LOWER EXTREMITY GANGRENE (Acute) - Assessment Assessment: Left foot gangrene. Lupus s/p BKA Left. - Plan Plan: CPM. May dc antibiotics ,if ok with Dr Rodriguez. Wound care. Nutritional Asmnt/Malnutr-PDOC - Dietary Evaluation Malnutrition Findings (Please click <Entered> for more info): Nutritional Asmnt/Malnutrition Start: 09/06/17 17: 07 Text: Status: Complete Freq: Document 09/06/17 17:08 LCHENG (Rec: 09/06/17 17:17 [id number] [email or web address]) Nutritional Asmnt/Malnutrition Patient General Information Nutritional Screening High Risk Consult Diagnosis left foot cellulitis, left foot gangrene Pertinent Medical Hx/Surgical Hx sle, cellulitis left leg, gangrene, gerd, anxiety, hyperlipidemia, anxiety, polyneuropathy, chronic pain syndrom, amputation upper extremity rbka Subjective Information Consult received for wounds. Pt seen taking wound care at time of visit. Pt stated she did not like the lunch, she likes rice, pork chop. Adj BMI for amputation 20.3 Current Diet Order/ Nutrition Support KVNG Pertinent Medications vit C, os-won, colace, iron, culturelle, levaquin, protonix , piperacillin, zinc Pertinent Labs 2 Na 133, Ca 8.5 Nutritional Hx/Data Height 1.6 m Height (Calculated Centimeters) 160.0 Current Weight (lbs) 49.895 kg Weight (Calculated Kilograms) 49.9 Weight (Calculated Grams) 83154.2 [place] Body Weight 109 Body Mass Index (BMI) 19.5 Weight Status Approriate GI Symptoms GI Symptoms None Last BM none Difficult in: None Skin Integrity/Comment: skin tear to left foot and parietal Estimated Nutritional Goals BEE in Kcals: Using Current wt Calories/Kcals/Kg 27-32 Kcals Calculated 5565-8698 Protein: Using Current wt Protein g/k-1.2 Protein Calculated 50-60 Fluid: ml 6751-3140 Nutritional Problem 1. Problem Problem increased nutrition needs ( calorie and protein) Etiology increased metabolic demand for wound healing Signs/Symptoms: gangrened wound in left leg Malnutrition Alert Protein-Calorie Malnutrition N/A Is there a minimum of two criteria No selected? Query Text:Check all the applicable criteria. A minimum of two criteria are recommended for diagnosis of either severe or non-severe malnutrition. Intervention/Recommendation Comments 1. Continue with current diet as ordered. 2. Monitor PO intake, wt, labs and skin integrity 3. F/U as moderate risk in 3-5 days, 09/09-09/11 Expected Outcomes/Goals Expected Outcomes/Goals 1. PO intake to meet at least 75% of nutritional needs. 2. Wt stability, skin to remain intact, labs to approach WNL.
[2017-09-11] MEDS: HYDROmorphone 1 mg/mL 1mL Syr IVP PRN ×2 (01:25→09:33)
[2017-09-11] MEDS: HYDROmorphone 2 mg/mL 1mL Vial IVP PRN ×2 (05:08→17:58)
[2017-09-11] MEDS: Hydrocodone/APAP 10 mg/325 mg Tab PO PRN ×2 (06:03→13:58)
--- NOTE | 2017-09-11 09:40 | General Progress Note ---
Subjective - Review of Systems Service Date: 09/11/17 Events since last encounter: labs noted stump redressed, healing well Objective - Results Result Diagrams: 09/09/17 05:40 09/07/17 05:50 Recent Labs: Laboratory Last Values WBC 9.1 Th/cmm (4.8-10.8) D 09/09/17 05:40 RBC 3.13 Mil/cmm (3.80-5.10) L 09/09/17 05:40 Hgb 10.0 gm/dL (12-16) L 09/09/17 05:40 Hct 30.9 % (41.0-60) L D 09/09/17 05:40 MCV 98.8 fl (81-100) 09/09/17 05:40 MCH 32.0 pg (27.0-31.0) H 09/09/17 05:40 MCHC Differential 32.4 pg (28.0-36.0) 09/09/17 05:40 RDW 13.3 % (11.5-20.0) 09/09/17 05:40 Plt Count 301 Th/cmm (150-400) 09/09/17 05:40 MPV 7.7 fl 09/09/17 05:40 Neutrophils % 69.9 % (40.0-80.0) 09/09/17 05:40 Lymphocytes % 14.3 % (20.0-50.0) L 09/09/17 05:40 Monocytes % 14.9 % (2.0-10.0) H 09/09/17 05:40 Eosinophils % 0.8 % (0.0-5.0) 09/09/17 05:40 Basophils % 0.1 % (0.0-2.0) 09/09/17 05:40 Sodium 138 mEq/L (136-145) 09/07/17 05:50 Potassium 5.5 mEq/L (3.5-5.1) H 09/07/17 05:50 Chloride 109 mEq/L (98-107) H 09/07/17 05:50 Carbon Dioxide 21.2 mEq/L (21.0-31.0) 09/07/17 05:50 Anion Gap 13.3 (7.0-16.0) 09/07/17 05:50 BUN 19 mg/dL (7-25) 09/07/17 05:50 Creatinine 0.6 mg/dL (0.6-1.2) 09/07/17 05:50 Est GFR ( Amer) > 60.0 ml/min (>90) 09/07/17 05:50 Est GFR (Non-Af Amer) > 60.0 ml/min 09/07/17 05:50 BUN/Creatinine Ratio 31.7 09/07/17 05:50 Glucose 79 mg/dL (70-105) 09/07/17 05:50 Whole Bld Lactic Acid 0.81 mmol/L (0.60-1.99) 09/05/17 15:00 Calcium 9.3 mg/dL (8.6-10.3) 09/07/17 05:50 Magnesium 2.0 mg/dL (1.9-2.7) 09/05/17 15:00 Total Bilirubin 0.3 mg/dL (0.3-1.0) 09/05/17 15:00 AST 21 U/L (13-39) 09/05/17 15:00 ALT 8 U/L (7-52) 09/05/17 15:00 Alkaline Phosphatase 129 U/L (34-104) H 09/05/17 15:00 C-Reactive Protein 3.4 mg/dL (0.0-0.9) H 09/05/17 15:00 B-Natriuretic Peptide 158.0 pg/mL (5.0-100.0) H 09/05/17 15:00 Total Protein 8.2 gm/dL (6.0-8.3) 09/05/17 15:00 Albumin 2.8 gm/dL (3.7-5.3) L 09/05/17 15:00 Globulin 5.4 gm/dL 09/05/17 15:00 Albumin/Globulin Ratio 0.5 (1.0-1.8) L 09/05/17 15:00 Triglycerides 62 mg/dL (<150) 09/05/17 15:00 Cholesterol 71 mg/dL (<200) 09/05/17 15:00 LDL Cholesterol Direct 16 mg/dL (75-193) L 09/05/17 15:00 HDL Cholesterol 42 mg/dL (23-92) 09/05/17 15:00 TSH 1.71 uIU/ml (0.34-5.60) 09/05/17 15:00 Urine Source CLEAN C 09/05/17 14:26 Urine Color YELLOW 09/05/17 14:26 Urine Clarity HAZY (CLEAR) 09/05/17 14:26 Urine pH 6.5 (4.6 - 8.0) 09/05/17 14:26 Ur Specific [place] 1.010 (1.005-1.030) 09/05/17 14:26 Urine Protein TRACE mg/dL (NEGATIVE) 09/05/17 14:26 Urine Glucose (UA) NEGATIVE mg/dL (NEGATIVE) 09/05/17 14:26 Urine Ketones NEGATIVE mg/dL (NEGATIVE) 09/05/17 14:26 Urine Blood SMALL (NEGATIVE) H 09/05/17 14:26 Urine Nitrate NEGATIVE (NEGATIVE) 09/05/17 14:26 Urine Bilirubin NEGATIVE (NEGATIVE) 09/05/17 14:26 Urine Urobilinogen 0.2 E.U./dL (0.2 - 1.0) 09/05/17 14:26 Ur Leukocyte Esterase SMALL (NEGATIVE) H 09/05/17 14:26 Urine RBC 5-10 /hpf (0-5) H 09/05/17 14:26 Urine WBC 6-10 /hpf (0-5) H 09/05/17 14:26 Ur Epithelial Cells OCCASIONAL /lpf (FEW) 09/05/17 14:26 Urine Bacteria FEW /hpf (NONE SEEN) 09/05/17 14:26 - Physical Exam Vitals and I&O: Vital Signs Temp 97.3 F 09/11/17 05:00 Pulse 100 09/11/17 05:00 Resp 17 09/11/17 05:00 BP 149/81 09/11/17 05:00 Pulse Ox 96 09/11/17 05:00 Intake & Output 09/10/17 09/11/17 09/11/17 18:59 06:59 18:59 Intake Total 840 Balance 840 Weight (lbs) 50.167 kg Intake: Intake, IV Amount 100 Levofloxacin 500mg/100mL 100 500 mg In 100 ml @ 100 mls/hr IV Q24HR [facility] Rx#: [id number] Oral 740 Other: # Voids 2 # Bowel Movements 0 Active Medications: Current Medications Acetaminophen (Tylenol) 650 mg PO DAILY PAULY Stop: 11/05/17 08:59 Last Admin: 09/10/17 09:34 Dose: 650 mg Acetaminophen (Tylenol) 650 mg PO Q4HR PRN PRN Reason: Mild Pain or Fever >101 Stop: 11/04/17 20:58 Acetaminophen/Hydrocodone Bitart ([place] 10 Mg/325 Mg) 1 tab PO Q8H PRN PRN Reason: MOD/SEVERE PAIN Stop: 11/04/17 20:58 Last Admin: 09/11/17 06:03 Dose: 1 tab Albuterol Sulfate (Albuterol 2.5mg/3ml Neb Ud) 2.5 mg HHN Q6HR PRN PRN Reason: sob/WHEEZING/CONGESTION Stop: 11/04/17 20:58 Ascorbic Acid (Vitamin C) 500 mg PO DAILY PAULY Stop: 11/05/17 08:59 Last Admin: 09/10/17 09:36 Dose: 500 mg Atorvastatin Calcium (Lipitor) 40 mg PO HS PA[facility] Stop: 11/04/17 20:59 Last Admin: 09/10/17 22:18 Dose: 40 mg Bisacodyl (Dulcolax 10 Mg Supp) 10 mg RC DAILY PRN PRN Reason: IF MOM INEFFECTIVE FOR CONSTIP Stop: 11/04/17 20:58 Calcium Carbonate (Os-Won) 500 mg PO DAILY PA[facility] Stop: 11/05/17 08:59 Last Admin: 09/10/17 09:39 Dose: 500 mg Docusate Sodium (Colace) 100 mg PO DAILY [facility] Stop: 11/05/17 08:59 Last Admin: 09/10/17 09:36 Dose: 100 mg Enalaprilat (Vasotec) 1.25 mg IVP Q4HR PRN PRN Reason: SBP ABOVE 160 Last Admin: 09/08/17 20:41 Dose: 1.25 mg Fentanyl (Duragesic 25 Mcg/Hr Tdm Patch) 1 patch TD Q72HR [facility] PRN Reason: Protocol Stop: 11/05/17 09:59 Last Admin: 09/06/17 09:28 Dose: 1 patch Ferrous Sulfate (Iron) 325 mg PO DAILY [facility]UL[facility] Stop: 11/05/17 08:59 Last Admin: 09/10/17 09:35 Dose: 325 mg Fluticasone Propionate (Flonase) 1 spr NS DAILY PRN PRN Reason: Congestion Stop: 11/04/17 20:58 Gabapentin (Neurontin) 300 mg PO TID [facility] Stop: 11/04/17 20:59 Last Admin: 09/10/17 22:19 Dose: 300 mg Hydromorphone HCl (Dilaudid) 2 mg IVP Q4HR PRN PRN Reason: Pain (Severe) Stop: 11/04/17 20:05 Last Admin: 09/11/17 05:08 Dose: 2 mg Hydromorphone HCl (Dilaudid) 1 mg IVP Q4HR PRN PRN Reason: Pain (Moderate) Stop: 11/04/17 20:05 Last Admin: 09/11/17 01:25 Dose: 1 mg Hydroxyzine HCl (Atarax) 25 mg PO Q8HR PRN; Protocol PRN Reason: Itching Stop: 11/04/17 20:58 Levofloxacin (Levaquin Pb) 500 mg in 100 mls @ 100 mls/hr IV Q24HR [facility] Stop: 11/05/17 20:59 Last Infusion: 09/10/17 22:23 Dose: Infused Lactobacillus Rhamnosus (Culturelle 15b) 1 each PO DAILY [facility] Stop: 11/06/17 08:59 Last Admin: 09/10/17 09:38 Dose: 1 each Lorazepam (Ativan) 1 mg IVP Q6HR PRN; Protocol PRN Reason: Agitation Last Admin: 09/08/17 20:43 Dose: 1 mg Magnesium Hydroxide (Milk Of Magnesia) 30 ml PO HS PRN PRN Reason: Constipation Stop: 11/04/17 20:58 Miscellaneous (Vte Chemical Prophylaxis Screen/ Admission) 1 ea MC PRN PRN PRN Reason: PROTOCOL Stop: 11/05/17 08:14 Miscellaneous (Probiotic Screen) 1 ea MC PRN PRN PRN Reason: PROTOCOL Stop: 11/05/17 09:14 Morphine Sulfate (Morphine Ir) 15 mg PO Q12H [facility] Stop: 11/04/17 20:59 Last Admin: 09/10/17 22:18 Dose: 15 mg Ondansetron HCl (Zofran) 4 mg IV Q6H PRN PRN Reason: Nausea / Vomiting Stop: 11/04/17 20:05 Pantoprazole Sodium (Protonix) 40 mg PO DAILY [facility] Stop: 11/05/17 08:59 Last Admin: 02/10/18 09:47 Dose: Not Given Temazepam (Restoril) 15 mg PO HS PRN; Protocol PRN Reason: Insomnia Stop: 11/04/17 20:21 Zinc Sulfate (Zinc Sulfate) 220 mg PO DAILY [facility] Stop: 11/05/17 08:59 Last Admin: 09/10/17 09:39 Dose: 220 mg General: Alert HEENT: Atraumatic Neck: Supple Lungs: Clear to auscultation Abdomen: Bowel sounds - Procedures Procedures: Procedures Procedure Code Date AMPUTATION OF LOWER LEG 64305 09/05/17 DETACHMENT AT LEFT LOWER LEG, LOW, OPEN APPROACH [id number] 09/05/17 Assessment/Plan - Problem List Patient Problems: All Active Problems LEFT LOWER EXTREMITY GANGRENE (Acute) Nutritional Asmnt/Malnutr-PDOC - Dietary Evaluation Malnutrition Findings (Please click <Entered> for more info): Nutritional Asmnt/Malnutrition Start: 09/06/17 17: 07 Text: Status: Complete Freq: Document 09/06/17 17:08 ALEXANDER (Rec: 09/06/17 17:17 [facility] Nutritional Asmnt/Malnutrition Patient General Information Nutritional Screening High Risk Consult Diagnosis left foot cellulitis, left foot gangrene Pertinent Medical Hx/Surgical Hx sle, cellulitis left leg, gangrene, gerd, anxiety, hyperlipidemia, anxiety, polyneuropathy, chronic pain syndrom, amputation upper extremity rbka Subjective Information Consult received for wounds. Pt seen taking wound care at time of visit. Pt stated she did not like the lunch, she likes rice, pork chop. Adj BMI for amputation 20.3 Current Diet Order/ Nutrition Support KVNG Pertinent Medications vit C, os-won, colace, iron, culturelle, levaquin, protonix , piperacillin, zinc Pertinent Labs 2/5 Na 133, Ca 8.5 Nutritional Hx/Data Height 1.6 m Height (Calculated Centimeters) 160.0 Current Weight (lbs) 49.895 kg Weight (Calculated Kilograms) 49.9 Weight (Calculated Grams) [address]32.2 [place] Body Weight 109 Body Mass Index (BMI) 19.5 Weight Status Approriate GI Symptoms GI Symptoms None Last BM none Difficult in: None Skin Integrity/Comment: skin tear to left foot and parietal Estimated Nutritional Goals BEE in Kcals: Using Current wt Calories/Kcals/Kg 27-32 Kcals Calculated 0732-0200 Protein: Using Current wt Protein g/k-1.2 Protein Calculated 50-60 Fluid: ml 8936-4594 Nutritional Problem 1. Problem Problem increased nutrition needs ( calorie and protein) Etiology increased metabolic demand for wound healing Signs/Symptoms: gangrened wound in left leg Malnutrition Alert Protein-Calorie Malnutrition N/A Is there a minimum of two criteria No selected? Query Text:Check all the applicable criteria. A minimum of two criteria are recommended for diagnosis of either severe or non-severe malnutrition. Intervention/Recommendation Comments 1. Continue with current diet as ordered. 2. Monitor PO intake, wt, labs and skin integrity 3. F/U as moderate risk in 3-5 days, 09/09-09/11 Expected Outcomes/Goals Expected Outcomes/Goals 1. PO intake to meet at least 75% of nutritional needs. 2. Wt stability, skin to remain intact, labs to approach WNL.
[2017-09-11] MEDS: Lactobacillus Rhamnosus GG 15 Billion CFU CAP.SPRINK PO SCH (10:21)
[2017-09-11] MEDS: Pantoprazole 40 mg EC Tab PO SCH (10:22)
[2017-09-11] MEDS: Ferrous Sulfate 325 MG TAB PO SCH (10:22)
--- NOTE | 2017-09-11 10:28 | General Progress Note ---
Subjective - Review of Systems Events since last encounter: stump redness in no acute distress Objective - Results Result Diagrams: 09/09/17 05:40 09/07/17 05:50 Recent Labs: Laboratory Last Values WBC 9.1 Th/cmm (4.8-10.8) D 09/09/17 05:40 RBC 3.13 Mil/cmm (3.80-5.10) L 09/09/17 05:40 Hgb 10.0 gm/dL (12-16) L 09/09/17 05:40 Hct 30.9 % (41.0-60) L D 09/09/17 05:40 MCV 98.8 fl (81-100) 09/09/17 05:40 MCH 32.0 pg (27.0-31.0) H 09/09/17 05:40 MCHC Differential 32.4 pg (28.0-36.0) 09/09/17 05:40 RDW 13.3 % (11.5-20.0) 09/09/17 05:40 Plt Count 301 Th/cmm (150-400) 09/09/17 05:40 MPV 7.7 fl 09/09/17 05:40 Neutrophils % 69.9 % (40.0-80.0) 09/09/17 05:40 Lymphocytes % 14.3 % (20.0-50.0) L 09/09/17 05:40 Monocytes % 14.9 % (2.0-10.0) H 09/09/17 05:40 Eosinophils % 0.8 % (0.0-5.0) 09/09/17 05:40 Basophils % 0.1 % (0.0-2.0) 09/09/17 05:40 Sodium 138 mEq/L (136-145) 09/07/17 05:50 Potassium 5.5 mEq/L (3.5-5.1) H 09/07/17 05:50 Chloride 109 mEq/L (98-107) H 09/07/17 05:50 Carbon Dioxide 21.2 mEq/L (21.0-31.0) 09/07/17 05:50 Anion Gap 13.3 (7.0-16.0) 09/07/17 05:50 BUN 19 mg/dL (7-25) 09/07/17 05:50 Creatinine 0.6 mg/dL (0.6-1.2) 09/07/17 05:50 Est GFR ( Amer) > 60.0 ml/min (>90) 09/07/17 05:50 Est GFR (Non-Af Amer) > 60.0 ml/min 09/07/17 05:50 BUN/Creatinine Ratio 31.7 09/07/17 05:50 Glucose 79 mg/dL (70-105) 09/07/17 05:50 Whole Bld Lactic Acid 0.81 mmol/L (0.60-1.99) 09/05/17 15:00 Calcium 9.3 mg/dL (8.6-10.3) 09/07/17 05:50 Magnesium 2.0 mg/dL (1.9-2.7) 09/05/17 15:00 Total Bilirubin 0.3 mg/dL (0.3-1.0) 09/05/17 15:00 AST 21 U/L (13-39) 09/05/17 15:00 ALT 8 U/L (7-52) 09/05/17 15:00 Alkaline Phosphatase 129 U/L (34-104) H 09/05/17 15:00 C-Reactive Protein 3.4 mg/dL (0.0-0.9) H 09/05/17 15:00 B-Natriuretic Peptide 158.0 pg/mL (5.0-100.0) H 09/05/17 15:00 Total Protein 8.2 gm/dL (6.0-8.3) 09/05/17 15:00 Albumin 2.8 gm/dL (3.7-5.3) L 09/05/17 15:00 Globulin 5.4 gm/dL 09/05/17 15:00 Albumin/Globulin Ratio 0.5 (1.0-1.8) L 09/05/17 15:00 Triglycerides 62 mg/dL (<150) 09/05/17 15:00 Cholesterol 71 mg/dL (<200) 09/05/17 15:00 LDL Cholesterol Direct 16 mg/dL (75-193) L 09/05/17 15:00 HDL Cholesterol 42 mg/dL (23-92) 09/05/17 15:00 TSH 1.71 uIU/ml (0.34-5.60) 09/05/17 15:00 Urine Source CLEAN C 09/05/17 14:26 Urine Color YELLOW 09/05/17 14:26 Urine Clarity HAZY (CLEAR) 09/05/17 14:26 Urine pH 6.5 (4.6 - 8.0) 09/05/17 14:26 Ur Specific [place] 1.010 (1.005-1.030) 09/05/17 14:26 Urine Protein TRACE mg/dL (NEGATIVE) 09/05/17 14:26 Urine Glucose (UA) NEGATIVE mg/dL (NEGATIVE) 09/05/17 14:26 Urine Ketones NEGATIVE mg/dL (NEGATIVE) 09/05/17 14:26 Urine Blood SMALL (NEGATIVE) H 09/05/17 14:26 Urine Nitrate NEGATIVE (NEGATIVE) 09/05/17 14:26 Urine Bilirubin NEGATIVE (NEGATIVE) 09/05/17 14:26 Urine Urobilinogen 0.2 E.U./dL (0.2 - 1.0) 09/05/17 14:26 Ur Leukocyte Esterase SMALL (NEGATIVE) H 09/05/17 14:26 Urine RBC 5-10 /hpf (0-5) H 09/05/17 14:26 Urine WBC 6-10 /hpf (0-5) H 09/05/17 14:26 Ur Epithelial Cells OCCASIONAL /lpf (FEW) 09/05/17 14:26 Urine Bacteria FEW /hpf (NONE SEEN) 09/05/17 14:26 - Physical Exam Vitals and I&O: Vital Signs Temp 97.3 F 09/11/17 05:00 Pulse 85 09/11/17 10:21 Resp 17 09/11/17 05:00 BP 149/81 09/11/17 05:00 Pulse Ox 96 09/11/17 05:00 Intake & Output 09/10/17 09/11/17 09/11/17 18:59 06:59 18:59 Intake Total 840 Balance 840 Weight (lbs) 50.167 kg Intake: Intake, IV Amount 100 Levofloxacin 500mg/100mL 100 500 mg In 100 ml @ 100 mls/hr IV Q24HR [facility] Rx#: [id number] Oral 740 Other: # Voids 2 # Bowel Movements 0 Active Medications: Current Medications Acetaminophen (Tylenol) 650 mg PO DAILY [facility] Stop: 11/05/17 08:59 Last Admin: 09/11/17 10:20 Dose: 650 mg Acetaminophen (Tylenol) 650 mg PO Q4HR PRN PRN Reason: Mild Pain or Fever >101 Stop: 11/04/17 20:58 Acetaminophen/Hydrocodone Bitart ([place] 10 Mg/325 Mg) 1 tab PO Q8H PRN PRN Reason: MOD/SEVERE PAIN Stop: 11/04/17 20:58 Last Admin: 09/11/17 06:03 Dose: 1 tab Albuterol Sulfate (Albuterol 2.5mg/3ml Neb Ud) 2.5 mg HHN Q6HR PRN PRN Reason: sob/WHEEZING/CONGESTION Stop: 11/04/17 20:58 Ascorbic Acid (Vitamin C) 500 mg PO DAILY PA[facility]Y Stop: 11/05/17 08:59 Last Admin: 09/11/17 10:22 Dose: 500 mg Atorvastatin Calcium (Lipitor) 40 mg PO HS PAULY Stop: 11/04/17 20:59 Last Admin: 09/10/17 22:18 Dose: 40 mg Bisacodyl (Dulcolax 10 Mg Supp) 10 mg RC DAILY PRN PRN Reason: IF MOM INEFFECTIVE FOR CONSTIP Stop: 11/04/17 20:58 Calcium Carbonate (Os-Won) 500 mg PO DAILY [facility] Stop: 11/05/17 08:59 Last Admin: 09/11/17 10:21 Dose: 500 mg Docusate Sodium (Colace) 100 mg PO DAILY [facility] Stop: 11/05/17 08:59 Last Admin: 09/11/17 10:21 Dose: 100 mg Enalaprilat (Vasotec) 1.25 mg IVP Q4HR PRN PRN Reason: SBP ABOVE 160 Last Admin: 09/08/17 20:41 Dose: 1.25 mg Fentanyl (Duragesic 25 Mcg/Hr Tdm Patch) 1 patch TD Q72HR [facility] PRN Reason: Protocol Stop: 11/05/17 09:59 Last Admin: 09/06/17 09:28 Dose: 1 patch Ferrous Sulfate (Iron) 325 mg PO DAILY [facility] Stop: 11/05/17 08:59 Last Admin: 09/11/17 10:22 Dose: 325 mg Fluticasone Propionate (Flonase) 1 spr NS DAILY PRN PRN Reason: Congestion Stop: 11/04/17 20:58 Gabapentin (Neurontin) 300 mg PO TID PAULY Stop: 11/04/17 20:59 Last Admin: 09/11/17 10:21 Dose: 300 mg Hydromorphone HCl (Dilaudid) 2 mg IVP Q4HR PRN PRN Reason: Pain (Severe) Stop: 11/04/17 20:05 Last Admin: 09/11/17 05:08 Dose: 2 mg Hydromorphone HCl (Dilaudid) 1 mg IVP Q4HR PRN PRN Reason: Pain (Moderate) Stop: 11/04/17 20:05 Last Admin: 09/11/17 09:33 Dose: 1 mg Hydroxyzine HCl (Atarax) 25 mg PO Q8HR PRN; Protocol PRN Reason: Itching Stop: 11/04/17 20:58 Levofloxacin (Levaquin Pb) 500 mg in 100 mls @ 100 mls/hr IV Q24HR [facility] Stop: 11/05/17 20:59 Last Infusion: 09/10/17 22:23 Dose: Infused Lactobacillus Rhamnosus (Culturelle 15b) 1 each PO DAILY PAULY Stop: 11/06/17 08:59 Last Admin: 09/11/17 10:21 Dose: 1 each Lorazepam (Ativan) 1 mg IVP Q6HR PRN; Protocol PRN Reason: Agitation Last Admin: 09/08/17 20:43 Dose: 1 mg Magnesium Hydroxide (Milk Of Magnesia) 30 ml PO HS PRN PRN Reason: Constipation Stop: 11/04/17 20:58 Miscellaneous (Vte Chemical Prophylaxis Screen/ Admission) 1 ea MC PRN PRN PRN Reason: PROTOCOL Stop: 11/05/17 08:14 Miscellaneous (Probiotic Screen) 1 ea MC PRN PRN PRN Reason: PROTOCOL Stop: 11/05/17 09:14 Morphine Sulfate (Morphine Ir) 15 mg PO Q12H PAULY Stop: 11/04/17 20:59 Last Admin: 09/10/17 22:18 Dose: 15 mg Ondansetron HCl (Zofran) 4 mg IV Q6H PRN PRN Reason: Nausea / Vomiting Stop: 11/04/17 20:05 Pantoprazole Sodium (Protonix) 40 mg PO DAILY PAULY Stop: 11/05/17 08:59 Last Admin: 09/11/17 10:22 Dose: 40 mg Temazepam (Restoril) 15 mg PO HS PRN; Protocol PRN Reason: Insomnia Stop: 11/04/17 20:21 Zinc Sulfate (Zinc Sulfate) 220 mg PO DAILY PAULY Stop: 11/05/17 08:59 Last Admin: 09/11/17 10:22 Dose: 220 mg General: Alert HEENT: Atraumatic Neck: Supple Lungs: Clear to auscultation Abdomen: Bowel sounds - Procedures Procedures: Procedures Procedure Code Date AMPUTATION OF LOWER LEG 29655 09/05/17 DETACHMENT AT LEFT LOWER LEG, LOW, OPEN APPROACH [id number] 09/05/17 Assessment/Plan - Problem List Patient Problems: All Active Problems LEFT LOWER EXTREMITY GANGRENE (Acute) - Assessment Assessment: Current Active Problems Problem Status Onset LEFT LOWER EXTREMITY GANGRENE Acute sle gerd anxiety hyperlipidemia anxiety polyneuropathy chronic pain syndrome - Plan Plan: ivabx pain mgmt continue current orders Nutritional Asmnt/Malnutr-PDOC - Dietary Evaluation Malnutrition Findings (Please click <Entered> for more info): Nutritional Asmnt/Malnutrition Start: 09/06/17 17: 07 Text: Status: Complete Freq: Document 09/06/17 17:08 WOODROW (Rec: 09/06/17 17:17 HEN [id number]) Nutritional Asmnt/Malnutrition Patient General Information Nutritional Screening High Risk Consult Diagnosis left foot cellulitis, left foot gangrene Pertinent Medical Hx/Surgical Hx sle, cellulitis left leg, gangrene, gerd, anxiety, hyperlipidemia, anxiety, polyneuropathy, chronic pain syndrom, amputation upper extremity rbka Subjective Information Consult received for wounds. Pt seen taking wound care at time of visit. Pt stated she did not like the lunch, she likes rice, pork chop. Adj BMI for amputation 20.3 Current Diet Order/ Nutrition Support KVNG Pertinent Medications vit C, os-won, colace, iron, culturelle, levaquin, protonix , piperacillin, zinc Pertinent Labs 2/5 Na 133, Ca 8.5 Nutritional Hx/Data Height 1.6 m Height (Calculated Centimeters) 160.0 Current Weight (lbs) 49.895 kg Weight (Calculated Kilograms) 49.9 Weight (Calculated Grams) 05205.2 [place] Body Weight 109 Body Mass Index (BMI) 19.5 Weight Status Approriate GI Symptoms GI Symptoms None Last BM none Difficult in: None Skin Integrity/Comment: skin tear to left foot and parietal Estimated Nutritional Goals BEE in Kcals: Using Current wt Calories/Kcals/Kg 27-32 Kcals Calculated 1731-7582 Protein: Using Current wt Protein g/k-1.2 Protein Calculated 50-60 Fluid: ml 8347-4828 Nutritional Problem 1. Problem Problem increased nutrition needs ( calorie and protein) Etiology increased metabolic demand for wound healing Signs/Symptoms: gangrened wound in left leg Malnutrition Alert Protein-Calorie Malnutrition N/A Is there a minimum of two criteria No selected? Query Text:Check all the applicable criteria. A minimum of two criteria are recommended for diagnosis of either severe or non-severe malnutrition. Intervention/Recommendation Comments 1. Continue with current diet as ordered. 2. Monitor PO intake, wt, labs and skin integrity 3. F/U as moderate risk in 3-5 days, 09/09-09/11 Expected Outcomes/Goals Expected Outcomes/Goals 1. PO intake to meet at least 75% of nutritional needs. 2. Wt stability, skin to remain intact, labs to approach WNL.
[2017-09-11] MEDS: Multivitamin w/ Minerals Tab PO SCH (10:32)
[2017-09-11] MEDS: Atorvastatin Calcium 10 MG TAB PO SCH (23:09)
[2017-09-11] MEDS: Levofloxacin 500mg/100mL 500 MG/100 ML BAG IV SCH (23:10)
[2017-09-12] MEDS: HYDROmorphone 2 mg/mL 1mL Vial IVP PRN ×3 (00:54→23:11)
[2017-09-12] MEDS: Hydrocodone/APAP 10 mg/325 mg Tab PO PRN (03:44)
[2017-09-12] MEDS: Lactobacillus Rhamnosus GG 15 Billion CFU CAP.SPRINK PO SCH (09:03)
[2017-09-12] MEDS: Ferrous Sulfate 325 MG TAB PO SCH (09:03)
[2017-09-12] MEDS: Pantoprazole 40 mg EC Tab PO SCH (09:04)
[2017-09-12] MEDS: Multivitamin w/ Minerals Tab PO SCH (09:05)
[2017-09-12] MEDS: fentaNYL 25 mcg/hr Tdm Patch TD SCH ×2 (11:05→11:10)
--- NOTE | 2017-09-12 14:09 | Pathology Report ---
[id number] Collection Date: 09/07/2017 Surgeon: Dr. Maricruz Rodriguez Specimen Description: Left [id number] amputation Gross Description: Received in the unfixed state is a left lower leg amputation specimen with the left foot measuring 25 cm from the toe to the heel and 36 cm from the heel to the transection margin. All five toes show brownish-black discoloration and degeneration with superficial ulceration seen extending onto the distal half of the left foot. Sectioning of this area shows degenerated, necrotic appearing skin and soft tissue. Examination of the soft tissue at the margins shows intact structures without degeneration. Examination of the small arterial vessels shows areas of calcification and occlusion. [employer] Plant [employer] sections are submitted in three cassettes labeled A1 to A3. Cassette A1 shows the small arteries, cassette A2 shows the distal foot, cassette A3 shows the soft tissue margin. Microscopic Description: The histologic sections show skin and soft tissue with areas of suppurative inflammation and necrosis, consisting of large collections of neutrophils within a degenerated background. The skin and soft tissue at the surgical margins are intact and without degenerative changes. The small arterial vessels show calcification and occlusion consistent with peripheral vascular disease. Diagnosis: 1. [id number] amputation showing degenerative changes and necrosis of skin in the left foot. 2. The arterial vessels show peripheral vascular disease with areas of calcification and occlusion. [facility] [id number] TRUDY
[2017-09-12] MEDS: HYDROmorphone 1 mg/mL 1mL Syr IVP PRN (14:49)
--- NOTE | 2017-09-12 16:16 | General Progress Note ---
Subjective - Review of Systems Events since last encounter: in no distress Objective - Results Result Diagrams: 09/09/17 05:40 09/07/17 05:50 Recent Labs: Laboratory Last Values WBC 9.1 Th/cmm (4.8-10.8) D 09/09/17 05:40 RBC 3.13 Mil/cmm (3.80-5.10) L 09/09/17 05:40 Hgb 10.0 gm/dL (12-16) L 09/09/17 05:40 Hct 30.9 % (41.0-60) L D 09/09/17 05:40 MCV 98.8 fl (81-100) 09/09/17 05:40 MCH 32.0 pg (27.0-31.0) H 09/09/17 05:40 MCHC Differential 32.4 pg (28.0-36.0) 09/09/17 05:40 RDW 13.3 % (11.5-20.0) 09/09/17 05:40 Plt Count 301 Th/cmm (150-400) 09/09/17 05:40 MPV 7.7 fl 09/09/17 05:40 Neutrophils % 69.9 % (40.0-80.0) 09/09/17 05:40 Lymphocytes % 14.3 % (20.0-50.0) L 09/09/17 05:40 Monocytes % 14.9 % (2.0-10.0) H 09/09/17 05:40 Eosinophils % 0.8 % (0.0-5.0) 09/09/17 05:40 Basophils % 0.1 % (0.0-2.0) 09/09/17 05:40 Sodium 138 mEq/L (136-145) 09/07/17 05:50 Potassium 5.5 mEq/L (3.5-5.1) H 09/07/17 05:50 Chloride 109 mEq/L (98-107) H 09/07/17 05:50 Carbon Dioxide 21.2 mEq/L (21.0-31.0) 09/07/17 05:50 Anion Gap 13.3 (7.0-16.0) 09/07/17 05:50 BUN 19 mg/dL (7-25) 09/07/17 05:50 Creatinine 0.6 mg/dL (0.6-1.2) 09/07/17 05:50 Est GFR ( Amer) > 60.0 ml/min (>90) 09/07/17 05:50 Est GFR (Non-Af Amer) > 60.0 ml/min 09/07/17 05:50 BUN/Creatinine Ratio 31.7 09/07/17 05:50 Glucose 79 mg/dL (70-105) 09/07/17 05:50 Whole Bld Lactic Acid 0.81 mmol/L (0.60-1.99) 09/05/17 15:00 Calcium 9.3 mg/dL (8.6-10.3) 09/07/17 05:50 Magnesium 2.0 mg/dL (1.9-2.7) 09/05/17 15:00 Total Bilirubin 0.3 mg/dL (0.3-1.0) 09/05/17 15:00 AST 21 U/L (13-39) 09/05/17 15:00 ALT 8 U/L (7-52) 09/05/17 15:00 Alkaline Phosphatase 129 U/L (34-104) H 09/05/17 15:00 C-Reactive Protein 3.4 mg/dL (0.0-0.9) H 09/05/17 15:00 B-Natriuretic Peptide 158.0 pg/mL (5.0-100.0) H 09/05/17 15:00 Total Protein 8.2 gm/dL (6.0-8.3) 09/05/17 15:00 Albumin 2.8 gm/dL (3.7-5.3) L 09/05/17 15:00 Globulin 5.4 gm/dL 09/05/17 15:00 Albumin/Globulin Ratio 0.5 (1.0-1.8) L 09/05/17 15:00 Triglycerides 62 mg/dL (<150) 09/05/17 15:00 Cholesterol 71 mg/dL (<200) 09/05/17 15:00 LDL Cholesterol Direct 16 mg/dL (75-193) L 09/05/17 15:00 HDL Cholesterol 42 mg/dL (23-92) 09/05/17 15:00 TSH 1.71 uIU/ml (0.34-5.60) 09/05/17 15:00 Urine Source CLEAN C 09/05/17 14:26 Urine Color YELLOW 09/05/17 14:26 Urine Clarity HAZY (CLEAR) 09/05/17 14:26 Urine pH 6.5 (4.6 - 8.0) 09/05/17 14:26 Ur Specific [place] 1.010 (1.005-1.030) 09/05/17 14:26 Urine Protein TRACE mg/dL (NEGATIVE) 09/05/17 14:26 Urine Glucose (UA) NEGATIVE mg/dL (NEGATIVE) 09/05/17 14:26 Urine Ketones NEGATIVE mg/dL (NEGATIVE) 09/05/17 14:26 Urine Blood SMALL (NEGATIVE) H 09/05/17 14:26 Urine Nitrate NEGATIVE (NEGATIVE) 09/05/17 14:26 Urine Bilirubin NEGATIVE (NEGATIVE) 09/05/17 14:26 Urine Urobilinogen 0.2 E.U./dL (0.2 - 1.0) 09/05/17 14:26 Ur Leukocyte Esterase SMALL (NEGATIVE) H 09/05/17 14:26 Urine RBC 5-10 /hpf (0-5) H 09/05/17 14:26 Urine WBC 6-10 /hpf (0-5) H 09/05/17 14:26 Ur Epithelial Cells OCCASIONAL /lpf (FEW) 09/05/17 14:26 Urine Bacteria FEW /hpf (NONE SEEN) 09/05/17 14:26 - Physical Exam Vitals and I&O: Vital Signs Temp 97.6 F 09/12/17 15:37 Pulse 72 09/12/17 15:37 Resp 17 09/12/17 15:37 BP 128/56 09/12/17 15:37 Pulse Ox 96 09/12/17 15:37 Intake & Output 09/11/17 09/12/17 09/12/17 18:59 06:59 18:59 Intake Total 600 440 Balance 600 440 Weight (lbs) 50.167 kg 44.452 kg Intake: Intake, IV Amount 100 Levofloxacin 500mg/100mL 100 500 mg In 100 ml @ 100 mls/hr IV Q24HR [facility] Rx#: [id number] Oral 600 340 Other: # Voids 3 2 # Bowel Movements 0 Active Medications: Current Medications Acetaminophen (Tylenol) 650 mg PO DAILY PAULY Stop: 11/05/17 08:59 Last Admin: 09/12/17 09:03 Dose: 650 mg Acetaminophen (Tylenol) 650 mg PO Q4HR PRN PRN Reason: Mild Pain or Fever >101 Stop: 11/04/17 20:58 Acetaminophen/Hydrocodone Bitart ([place] 10 Mg/325 Mg) 1 tab PO Q8H PRN PRN Reason: MOD/SEVERE PAIN Stop: 11/04/17 20:58 Last Admin: 09/12/17 03:44 Dose: 1 tab Albuterol Sulfate (Albuterol 2.5mg/3ml Neb Ud) 2.5 mg HHN Q6HR PRN PRN Reason: sob/WHEEZING/CONGESTION Stop: 11/04/17 20:58 Ascorbic Acid (Vitamin C) 500 mg PO DAILY PAULY Stop: 11/05/17 08:59 Last Admin: 09/12/17 09:04 Dose: 500 mg Atorvastatin Calcium (Lipitor) 40 mg PO HS PAULY Stop: 11/04/17 20:59 Last Admin: 09/11/17 23:09 Dose: 40 mg Bisacodyl (Dulcolax 10 Mg Supp) 10 mg RC DAILY PRN PRN Reason: IF MOM INEFFECTIVE FOR CONSTIP Stop: 11/04/17 20:58 Calcium Carbonate (Os-Won) 500 mg PO DAILY PAULY Stop: 11/05/17 08:59 Last Admin: 09/12/17 09:03 Dose: 500 mg Docusate Sodium (Colace) 100 mg PO DAILY PAULY Stop: 11/05/17 08:59 Last Admin: 09/12/17 09:04 Dose: 100 mg Enalaprilat (Vasotec) 1.25 mg IVP Q4HR PRN PRN Reason: SBP ABOVE 160 Last Admin: 09/08/17 20:41 Dose: 1.25 mg Fentanyl (Duragesic 25 Mcg/Hr Tdm Patch) 1 patch TD Q72HR PAULY PRN Reason: Protocol Stop: 11/05/17 09:59 Last Admin: 09/12/17 11:10 Dose: 1 patch Ferrous Sulfate (Iron) 325 mg PO DAILY PAULY Stop: 11/05/17 08:59 Last Admin: 09/12/17 09:03 Dose: 325 mg Fluticasone Propionate (Flonase) 1 spr NS DAILY PRN PRN Reason: Congestion Stop: 11/04/17 20:58 Gabapentin (Neurontin) 300 mg PO TID PAULY Stop: 11/04/17 20:59 Last Admin: 09/12/17 14:49 Dose: 300 mg Hydromorphone HCl (Dilaudid) 2 mg IVP Q4HR PRN PRN Reason: Pain (Severe) Stop: 11/04/17 20:05 Last Admin: 09/12/17 00:54 Dose: 2 mg Hydromorphone HCl (Dilaudid) 1 mg IVP Q4HR PRN PRN Reason: Pain (Moderate) Stop: 11/04/17 20:05 Last Admin: 09/12/17 14:49 Dose: 1 mg Hydroxyzine HCl (Atarax) 25 mg PO Q8HR PRN; Protocol PRN Reason: Itching Stop: 11/04/17 20:58 Levofloxacin (Levaquin Pb) 500 mg in 100 mls @ 100 mls/hr IV Q24HR PAULY Stop: 11/05/17 20:59 Last Infusion: 09/11/17 23:45 Dose: Infused Lactobacillus Rhamnosus (Culturelle 15b) 1 each PO DAILY PAULY Stop: 11/06/17 08:59 Last Admin: 09/12/17 09:03 Dose: 1 each Lorazepam (Ativan) 1 mg IVP Q6HR PRN; Protocol PRN Reason: Agitation Last Admin: 09/08/17 20:43 Dose: 1 mg Magnesium Hydroxide (Milk Of Magnesia) 30 ml PO HS PRN PRN Reason: Constipation Stop: 11/04/17 20:58 Miscellaneous (Vte Chemical Prophylaxis Screen/ Admission) 1 ea MC PRN PRN PRN Reason: PROTOCOL Stop: 11/05/17 08:14 Miscellaneous (Probiotic Screen) 1 ea MC PRN PRN PRN Reason: PROTOCOL Stop: 11/05/17 09:14 Morphine Sulfate (Morphine Ir) 15 mg PO Q12H PAULY Stop: 11/04/17 20:59 Last Admin: 09/12/17 09:03 Dose: 15 mg Ondansetron HCl (Zofran) 4 mg IV Q6H PRN PRN Reason: Nausea / Vomiting Stop: 11/04/17 20:05 Pantoprazole Sodium (Protonix) 40 mg PO DAILY PAULY Stop: 11/05/17 08:59 Last Admin: 09/12/17 09:04 Dose: 40 mg Temazepam (Restoril) 15 mg PO HS PRN; Protocol PRN Reason: Insomnia Stop: 11/04/17 20:21 Zinc Sulfate (Zinc Sulfate) 220 mg PO DAILY PAULY Stop: 11/05/17 08:59 Last Admin: 09/12/17 09:03 Dose: 220 mg General: Alert HEENT: Atraumatic Neck: Supple Lungs: Clear to auscultation Abdomen: Bowel sounds - Procedures Procedures: Procedures Procedure Code Date AMPUTATION OF LOWER LEG 04154 09/05/17 DETACHMENT AT LEFT LOWER LEG, LOW, OPEN APPROACH [id number] 09/05/17 Assessment/Plan - Problem List Patient Problems: All Active Problems LEFT LOWER EXTREMITY GANGRENE (Acute) - Assessment Assessment: Current Active Problems Problem Status Onset LEFT LOWER EXTREMITY GANGRENE Acute sle gerd anxiety hyperlipidemia anxiety polyneuropathy chronic pain syndrome - Plan Plan: ivabx pain mgmt continue current orders Nutritional Asmnt/Malnutr-PDOC - Dietary Evaluation Malnutrition Findings (Please click <Entered> for more info): Nutritional Asmnt/Malnutrition Start: 09/06/17 17: 07 Text: Status: Complete Freq: Document 09/06/17 17:08 [email or web address] (Rec: 09/06/17 17:17 LCHENG [id number]) Nutritional Asmnt/Malnutrition Patient General Information Nutritional Screening High Risk Consult Diagnosis left foot cellulitis, left foot gangrene Pertinent Medical Hx/Surgical Hx sle, cellulitis left leg, gangrene, gerd, anxiety, hyperlipidemia, anxiety, polyneuropathy, chronic pain syndrom, amputation upper extremity rbka Subjective Information Consult received for wounds. Pt seen taking wound care at time of visit. Pt stated she did not like the lunch, she likes rice, pork chop. Adj BMI for amputation 20.3 Current Diet Order/ Nutrition Support KVNG Pertinent Medications vit C, os-won, colace, iron, culturelle, levaquin, protonix , piperacillin, zinc Pertinent Labs 2/5 Na 133, Ca 8.5 Nutritional Hx/Data Height 1.6 m Height (Calculated Centimeters) 160.0 Current Weight (lbs) 49.895 kg Weight (Calculated Kilograms) 49.9 Weight (Calculated Grams) 92319.2 [place] Body Weight 109 Body Mass Index (BMI) 19.5 Weight Status Approriate GI Symptoms GI Symptoms None Last BM none Difficult in: None Skin Integrity/Comment: skin tear to left foot and parietal Estimated Nutritional Goals BEE in Kcals: Using Current wt Calories/Kcals/Kg 27-32 Kcals Calculated 7946-1700 Protein: Using Current wt Protein g/k-1.2 Protein Calculated 50-60 Fluid: ml 4940-4597 Nutritional Problem 1. Problem Problem increased nutrition needs ( calorie and protein) Etiology increased metabolic demand for wound healing Signs/Symptoms: gangrened wound in left leg Malnutrition Alert Protein-Calorie Malnutrition N/A Is there a minimum of two criteria No selected? Query Text:Check all the applicable criteria. A minimum of two criteria are recommended for diagnosis of either severe or non-severe malnutrition. Intervention/Recommendation Comments 1. Continue with current diet as ordered. 2. Monitor PO intake, wt, labs and skin integrity 3. F/U as moderate risk in 3-5 days, 09/09-09/11 Expected Outcomes/Goals Expected Outcomes/Goals 1. PO intake to meet at least 75% of nutritional needs. 2. Wt stability, skin to remain intact, labs to approach WNL.
[2017-09-12] MEDS: Atorvastatin Calcium 10 MG TAB PO SCH (22:23)
[2017-09-12] MEDS: Levofloxacin 500mg/100mL 500 MG/100 ML BAG IV SCH (23:30)
[2017-09-13] MEDS: HYDROmorphone 2 mg/mL 1mL Vial IVP PRN (03:07)
[2017-09-13] MEDS: Pantoprazole 40 mg EC Tab PO SCH (09:44)
[2017-09-13] MEDS: Multivitamin w/ Minerals Tab PO SCH (09:45)
[2017-09-13] MEDS: Lactobacillus Rhamnosus GG 15 Billion CFU CAP.SPRINK PO SCH (09:45)
[2017-09-13] MEDS ORDERED: Hydrocodone/APAP 10 mg/325 mg Tab PO PRN (10:11)
--- NOTE | 2017-09-13 10:13 | General Progress Note ---
Subjective - Review of Systems Service Date: 09/13/17 Events since last encounter: dressing dry for DC today Objective - Results Result Diagrams: 09/09/17 05:40 09/07/17 05:50 Recent Labs: Laboratory Last Values WBC 9.1 Th/cmm (4.8-10.8) D 09/09/17 05:40 RBC 3.13 Mil/cmm (3.80-5.10) L 09/09/17 05:40 Hgb 10.0 gm/dL (12-16) L 09/09/17 05:40 Hct 30.9 % (41.0-60) L D 09/09/17 05:40 MCV 98.8 fl (81-100) 09/09/17 05:40 MCH 32.0 pg (27.0-31.0) H 09/09/17 05:40 MCHC Differential 32.4 pg (28.0-36.0) 09/09/17 05:40 RDW 13.3 % (11.5-20.0) 09/09/17 05:40 Plt Count 301 Th/cmm (150-400) 09/09/17 05:40 MPV 7.7 fl 09/09/17 05:40 Neutrophils % 69.9 % (40.0-80.0) 09/09/17 05:40 Lymphocytes % 14.3 % (20.0-50.0) L 09/09/17 05:40 Monocytes % 14.9 % (2.0-10.0) H 09/09/17 05:40 Eosinophils % 0.8 % (0.0-5.0) 09/09/17 05:40 Basophils % 0.1 % (0.0-2.0) 09/09/17 05:40 Sodium 138 mEq/L (136-145) 09/07/17 05:50 Potassium 5.5 mEq/L (3.5-5.1) H 09/07/17 05:50 Chloride 109 mEq/L (98-107) H 09/07/17 05:50 Carbon Dioxide 21.2 mEq/L (21.0-31.0) 09/07/17 05:50 Anion Gap 13.3 (7.0-16.0) 09/07/17 05:50 BUN 19 mg/dL (7-25) 09/07/17 05:50 Creatinine 0.6 mg/dL (0.6-1.2) 09/07/17 05:50 Est GFR ( Amer) > 60.0 ml/min (>90) 09/07/17 05:50 Est GFR (Non-Af Amer) > 60.0 ml/min 09/07/17 05:50 BUN/Creatinine Ratio 31.7 09/07/17 05:50 Glucose 79 mg/dL (70-105) 09/07/17 05:50 Whole Bld Lactic Acid 0.81 mmol/L (0.60-1.99) 09/05/17 15:00 Calcium 9.3 mg/dL (8.6-10.3) 09/07/17 05:50 Magnesium 2.0 mg/dL (1.9-2.7) 09/05/17 15:00 Total Bilirubin 0.3 mg/dL (0.3-1.0) 09/05/17 15:00 AST 21 U/L (13-39) 09/05/17 15:00 ALT 8 U/L (7-52) 09/05/17 15:00 Alkaline Phosphatase 129 U/L (34-104) H 09/05/17 15:00 C-Reactive Protein 3.4 mg/dL (0.0-0.9) H 09/05/17 15:00 B-Natriuretic Peptide 158.0 pg/mL (5.0-100.0) H 09/05/17 15:00 Total Protein 8.2 gm/dL (6.0-8.3) 09/05/17 15:00 Albumin 2.8 gm/dL (3.7-5.3) L 09/05/17 15:00 Globulin 5.4 gm/dL 09/05/17 15:00 Albumin/Globulin Ratio 0.5 (1.0-1.8) L 09/05/17 15:00 Triglycerides 62 mg/dL (<150) 09/05/17 15:00 Cholesterol 71 mg/dL (<200) 09/05/17 15:00 LDL Cholesterol Direct 16 mg/dL (75-193) L 09/05/17 15:00 HDL Cholesterol 42 mg/dL (23-92) 09/05/17 15:00 TSH 1.71 uIU/ml (0.34-5.60) 09/05/17 15:00 Urine Source CLEAN C 09/05/17 14:26 Urine Color YELLOW 09/05/17 14:26 Urine Clarity HAZY (CLEAR) 09/05/17 14:26 Urine pH 6.5 (4.6 - 8.0) 09/05/17 14:26 Ur Specific [place] 1.010 (1.005-1.030) 09/05/17 14:26 Urine Protein TRACE mg/dL (NEGATIVE) 09/05/17 14:26 Urine Glucose (UA) NEGATIVE mg/dL (NEGATIVE) 09/05/17 14:26 Urine Ketones NEGATIVE mg/dL (NEGATIVE) 09/05/17 14:26 Urine Blood SMALL (NEGATIVE) H 09/05/17 14:26 Urine Nitrate NEGATIVE (NEGATIVE) 09/05/17 14:26 Urine Bilirubin NEGATIVE (NEGATIVE) 09/05/17 14:26 Urine Urobilinogen 0.2 E.U./dL (0.2 - 1.0) 09/05/17 14:26 Ur Leukocyte Esterase SMALL (NEGATIVE) H 09/05/17 14:26 Urine RBC 5-10 /hpf (0-5) H 09/05/17 14:26 Urine WBC 6-10 /hpf (0-5) H 09/05/17 14:26 Ur Epithelial Cells OCCASIONAL /lpf (FEW) 09/05/17 14:26 Urine Bacteria FEW /hpf (NONE SEEN) 09/05/17 14:26 - Physical Exam Vitals and I&O: Vital Signs Temp 97.4 F 09/13/17 08:37 Pulse 82 09/13/17 09:44 Resp 18 09/13/17 08:37 BP 125/59 09/13/17 08:37 Pulse Ox 100 09/13/17 08:37 Intake & Output 09/12/17 09/13/17 09/13/17 18:59 06:59 18:59 Intake Total 800 200 Balance 800 200 Weight (lbs) 44.452 kg 44.452 kg Intake: Oral 800 200 Other: # Voids 2 # Bowel Movements 1 0 Active Medications: Current Medications Acetaminophen (Tylenol) 650 mg PO DAILY PAULY Stop: 11/05/17 08:59 Last Admin: 09/13/17 09:44 Dose: 650 mg Acetaminophen (Tylenol) 650 mg PO Q4HR PRN PRN Reason: Mild Pain or Fever >101 Stop: 11/04/17 20:58 Albuterol Sulfate (Albuterol 2.5mg/3ml Neb Ud) 2.5 mg HHN Q6HR PRN PRN Reason: sob/WHEEZING/CONGESTION Stop: 11/04/17 20:58 Ascorbic Acid (Vitamin C) 500 mg PO DAILY PAULY Stop: 11/05/17 08:59 Last Admin: 09/13/17 09:45 Dose: Not Given Atorvastatin Calcium (Lipitor) 40 mg PO HS PAULY Stop: 11/04/17 20:59 Last Admin: 09/12/17 22:23 Dose: 40 mg Bisacodyl (Dulcolax 10 Mg Supp) 10 mg RC DAILY PRN PRN Reason: IF MOM INEFFECTIVE FOR CONSTIP Stop: 11/04/17 20:58 Calcium Carbonate (Os-Won) 500 mg PO DAILY PAULY Stop: 11/05/17 08:59 Last Admin: 09/13/17 09:45 Dose: Not Given Docusate Sodium (Colace) 100 mg PO DAILY PAULY Stop: 11/05/17 08:59 Last Admin: 09/13/17 09:45 Dose: Not Given Enalaprilat (Vasotec) 1.25 mg IVP Q4HR PRN PRN Reason: SBP ABOVE 160 Last Admin: 09/08/17 20:41 Dose: 1.25 mg Fentanyl (Duragesic 25 Mcg/Hr Tdm Patch) 1 patch TD Q72HR PAULY PRN Reason: Protocol Stop: 11/05/17 09:59 Last Admin: 09/12/17 11:10 Dose: 1 patch Ferrous Sulfate (Iron) 325 mg PO DAILY PAULY Stop: 11/05/17 08:59 Last Admin: 09/12/17 09:03 Dose: 325 mg Fluticasone Propionate (Flonase) 1 spr NS DAILY PRN PRN Reason: Congestion Stop: 11/04/17 20:58 Gabapentin (Neurontin) 300 mg PO TID PAULY Stop: 11/04/17 20:59 Last Admin: 09/13/17 09:44 Dose: 300 mg Hydroxyzine HCl (Atarax) 25 mg PO Q8HR PRN; Protocol PRN Reason: Itching Stop: 11/04/17 20:58 Levofloxacin (Levaquin Pb) 500 mg in 100 mls @ 100 mls/hr IV Q24HR PAULY Stop: 11/05/17 20:59 Last Admin: 09/12/17 23:30 Dose: 100 mls/hr Lactobacillus Rhamnosus (Culturelle 15b) 1 each PO DAILY PAULY Stop: 11/06/17 08:59 Last Admin: 09/13/17 09:45 Dose: Not Given Lorazepam (Ativan) 1 mg IVP Q6HR PRN; Protocol PRN Reason: Agitation Last Admin: 09/08/17 20:43 Dose: 1 mg Magnesium Hydroxide (Milk Of Magnesia) 30 ml PO HS PRN PRN Reason: Constipation Stop: 11/04/17 20:58 Miscellaneous (Vte Chemical Prophylaxis Screen/ Admission) 1 ea PRN PRN PRN Reason: PROTOCOL Stop: 11/05/17 08:14 Miscellaneous (Probiotic Screen) 1 ea PRN PRN PRN Reason: PROTOCOL Stop: 11/05/17 09:14 Ondansetron HCl (Zofran) 4 mg IV Q6H PRN PRN Reason: Nausea / Vomiting Stop: 11/04/17 20:05 Pantoprazole Sodium (Protonix) 40 mg PO DAILY PAULY Stop: 11/05/17 08:59 Last Admin: 09/13/17 09:44 Dose: 40 mg Zinc Sulfate (Zinc Sulfate) 220 mg PO DAILY PAULY Stop: 11/05/17 08:59 Last Admin: 09/13/17 09:45 Dose: Not Given General: Alert HEENT: Atraumatic Neck: Supple Lungs: Clear to auscultation Abdomen: Bowel sounds - Procedures Procedures: Procedures Procedure Code Date AMPUTATION OF LOWER LEG 02531 09/05/17 DETACHMENT AT LEFT LOWER LEG, LOW, OPEN APPROACH [id number] 09/05/17 Assessment/Plan - Problem List Patient Problems: All Active Problems LEFT LOWER EXTREMITY GANGRENE (Acute) Nutritional Asmnt/Malnutr-PDOC - Dietary Evaluation Malnutrition Findings (Please click <Entered> for more info): Nutritional Asmnt/Malnutrition Start: 09/06/17 17: 07 Text: Status: Complete Freq: Document 09/06/17 17:08 ALEXANDER (Rec: 09/06/17 17:17 [id number] [email or web address]) Nutritional Asmnt/Malnutrition Patient General Information Nutritional Screening High Risk Consult Diagnosis left foot cellulitis, left foot gangrene Pertinent Medical Hx/Surgical Hx sle, cellulitis left leg, gangrene, gerd, anxiety, hyperlipidemia, anxiety, polyneuropathy, chronic pain syndrom, amputation upper extremity rbka Subjective Information Consult received for wounds. Pt seen taking wound care at time of visit. Pt stated she did not like the lunch, she likes rice, pork chop. Adj BMI for amputation 20.3 Current Diet Order/ Nutrition Support KVNG Pertinent Medications vit C, os-won, colace, iron, culturelle, levaquin, protonix , piperacillin, zinc Pertinent Labs 09/05 Na 133, Ca 8.5 Nutritional Hx/Data Height 1.6 m Height (Calculated Centimeters) 160.0 Current Weight (lbs) 49.895 kg Weight (Calculated Kilograms) 49.9 Weight (Calculated Grams) 85684.2 [place] Body Weight 109 Body Mass Index (BMI) 19.5 Weight Status Approriate GI Symptoms GI Symptoms None Last BM none Difficult in: None Skin Integrity/Comment: skin tear to left foot and parietal Estimated Nutritional Goals BEE in Kcals: Using Current wt Calories/Kcals/Kg 27-32 Kcals Calculated 8115-7391 Protein: Using Current wt Protein g/k-1.2 Protein Calculated 50-60 Fluid: ml 8531-5881 Nutritional Problem 1. Problem Problem increased nutrition needs ( calorie and protein) Etiology increased metabolic demand for wound healing Signs/Symptoms: gangrened wound in left leg Malnutrition Alert Protein-Calorie Malnutrition N/A Is there a minimum of two criteria No selected? Query Text:Check all the applicable criteria. A minimum of two criteria are recommended for diagnosis of either severe or non-severe malnutrition. Intervention/Recommendation Comments 1. Continue with current diet as ordered. 2. Monitor PO intake, wt, labs and skin integrity 3. F/U as moderate risk in 3-5 days, 09/09-09/11 Expected Outcomes/Goals Expected Outcomes/Goals 1. PO intake to meet at least 75% of nutritional needs. 2. Wt stability, skin to remain intact, labs to approach WNL.
[2017-09-13] MEDS: Ferrous Sulfate 325 MG TAB PO SCH (11:14)
--- NOTE | 2017-09-13 11:39 | Internal Medicine Prog Note ---
Internal Medicine Subjective - Subjective Service Date: 09/13/17 Patient seen and examined:: with staff Patient is:: awake, verbal Per staff patient has:: tolerating meds Internal Medicine Objective - Results Result Diagrams: 09/09/17 05:40 09/07/17 05:50 Recent Labs: Laboratory Last Values WBC 9.1 Th/cmm (4.8-10.8) D 09/09/17 05:40 RBC 3.13 Mil/cmm (3.80-5.10) L 09/09/17 05:40 Hgb 10.0 gm/dL (12-16) L 09/09/17 05:40 Hct 30.9 % (41.0-60) L D 09/09/17 05:40 MCV 98.8 fl (81-100) 09/09/17 05:40 MCH 32.0 pg (27.0-31.0) H 09/09/17 05:40 MCHC Differential 32.4 pg (28.0-36.0) 09/09/17 05:40 RDW 13.3 % (11.5-20.0) 09/09/17 05:40 Plt Count 301 Th/cmm (150-400) 09/09/17 05:40 MPV 7.7 fl 09/09/17 05:40 Neutrophils % 69.9 % (40.0-80.0) 09/09/17 05:40 Lymphocytes % 14.3 % (20.0-50.0) L 09/09/17 05:40 Monocytes % 14.9 % (2.0-10.0) H 09/09/17 05:40 Eosinophils % 0.8 % (0.0-5.0) 09/09/17 05:40 Basophils % 0.1 % (0.0-2.0) 09/09/17 05:40 Sodium 138 mEq/L (136-145) 09/07/17 05:50 Potassium 5.5 mEq/L (3.5-5.1) H 09/07/17 05:50 Chloride 109 mEq/L (98-107) H 09/07/17 05:50 Carbon Dioxide 21.2 mEq/L (21.0-31.0) 09/07/17 05:50 Anion Gap 13.3 (7.0-16.0) 09/07/17 05:50 BUN 19 mg/dL (7-25) 09/07/17 05:50 Creatinine 0.6 mg/dL (0.6-1.2) 09/07/17 05:50 Est GFR ( Amer) > 60.0 ml/min (>90) 09/07/17 05:50 Est GFR (Non-Af Amer) > 60.0 ml/min 09/07/17 05:50 BUN/Creatinine Ratio 31.7 09/07/17 05:50 Glucose 79 mg/dL (70-105) 09/07/17 05:50 Whole Bld Lactic Acid 0.81 mmol/L (0.60-1.99) 09/05/17 15:00 Calcium 9.3 mg/dL (8.6-10.3) 09/07/17 05:50 Magnesium 2.0 mg/dL (1.9-2.7) 09/05/17 15:00 Total Bilirubin 0.3 mg/dL (0.3-1.0) 09/05/17 15:00 AST 21 U/L (13-39) 09/05/17 15:00 ALT 8 U/L (7-52) 09/05/17 15:00 Alkaline Phosphatase 129 U/L (34-104) H 09/05/17 15:00 C-Reactive Protein 3.4 mg/dL (0.0-0.9) H 09/05/17 15:00 B-Natriuretic Peptide 158.0 pg/mL (5.0-100.0) H 09/05/17 15:00 Total Protein 8.2 gm/dL (6.0-8.3) 09/05/17 15:00 Albumin 2.8 gm/dL (3.7-5.3) L 09/05/17 15:00 Globulin 5.4 gm/dL 09/05/17 15:00 Albumin/Globulin Ratio 0.5 (1.0-1.8) L 09/05/17 15:00 Triglycerides 62 mg/dL (<150) 09/05/17 15:00 Cholesterol 71 mg/dL (<200) 09/05/17 15:00 LDL Cholesterol Direct 16 mg/dL (75-193) L 09/05/17 15:00 HDL Cholesterol 42 mg/dL (23-92) 09/05/17 15:00 TSH 1.71 uIU/ml (0.34-5.60) 09/05/17 15:00 Urine Source CLEAN C 09/05/17 14:26 Urine Color YELLOW 09/05/17 14:26 Urine Clarity HAZY (CLEAR) 09/05/17 14:26 Urine pH 6.5 (4.6 - 8.0) 09/05/17 14:26 Ur Specific [place] 1.010 (1.005-1.030) 09/05/17 14:26 Urine Protein TRACE mg/dL (NEGATIVE) 09/05/17 14:26 Urine Glucose (UA) NEGATIVE mg/dL (NEGATIVE) 09/05/17 14:26 Urine Ketones NEGATIVE mg/dL (NEGATIVE) 09/05/17 14:26 Urine Blood SMALL (NEGATIVE) H 09/05/17 14:26 Urine Nitrate NEGATIVE (NEGATIVE) 09/05/17 14:26 Urine Bilirubin NEGATIVE (NEGATIVE) 09/05/17 14:26 Urine Urobilinogen 0.2 E.U./dL (0.2 - 1.0) 09/05/17 14:26 Ur Leukocyte Esterase SMALL (NEGATIVE) H 09/05/17 14:26 Urine RBC 5-10 /hpf (0-5) H 09/05/17 14:26 Urine WBC 6-10 /hpf (0-5) H 09/05/17 14:26 Ur Epithelial Cells OCCASIONAL /lpf (FEW) 09/05/17 14:26 Urine Bacteria FEW /hpf (NONE SEEN) 09/05/17 14:26 - Physical Exam Vitals and I&O: Vital Signs Temp 97.4 F 09/13/17 08:37 Pulse 82 09/13/17 09:44 Resp 18 09/13/17 08:37 BP 125/59 09/13/17 08:37 Pulse Ox 100 09/13/17 08:37 Intake & Output 09/12/17 09/13/17 09/13/17 18:59 06:59 18:59 Intake Total 800 200 Balance 800 200 Weight (lbs) 98 lb 98 lb Intake: Oral 800 200 Other: # Voids 2 # Bowel Movements 1 0 Active Medications: Current Medications Acetaminophen (Tylenol) 650 mg PO DAILY PAULY Stop: 11/05/17 08:59 Last Admin: 09/13/17 09:44 Dose: 650 mg Acetaminophen (Tylenol) 650 mg PO Q4HR PRN PRN Reason: Mild Pain or Fever >101 Stop: 11/04/17 20:58 Acetaminophen/Hydrocodone Bitart ([place] 10 Mg/325 Mg) 1 tab PO Q4H PRN PRN Reason: MODERATE PAIN Stop: 11/12/17 10:10 Albuterol Sulfate (Albuterol 2.5mg/3ml Neb Ud) 2.5 mg HHN Q6HR PRN PRN Reason: sob/WHEEZING/CONGESTION Stop: 11/04/17 20:58 Ascorbic Acid (Vitamin C) 500 mg PO DAILY PAULY Stop: 11/05/17 08:59 Last Admin: 09/13/17 09:45 Dose: Not Given Atorvastatin Calcium (Lipitor) 40 mg PO HS PAULY Stop: 11/04/17 20:59 Last Admin: 09/12/17 22:23 Dose: 40 mg Bisacodyl (Dulcolax 10 Mg Supp) 10 mg RC DAILY PRN PRN Reason: IF MOM INEFFECTIVE FOR CONSTIP Stop: 11/04/17 20:58 Calcium Carbonate (Os-Won) 500 mg PO DAILY PAULY Stop: 11/05/17 08:59 Last Admin: 09/13/17 09:45 Dose: Not Given Docusate Sodium (Colace) 100 mg PO DAILY PAULY Stop: 11/05/17 08:59 Last Admin: 09/13/17 09:45 Dose: Not Given Enalaprilat (Vasotec) 1.25 mg IVP Q4HR PRN PRN Reason: SBP ABOVE 160 Last Admin: 09/08/17 20:41 Dose: 1.25 mg Fentanyl (Duragesic 25 Mcg/Hr Tdm Patch) 1 patch TD Q72HR PAULY PRN Reason: Protocol Stop: 11/05/17 09:59 Last Admin: 09/12/17 11:10 Dose: 1 patch Ferrous Sulfate (Iron) 325 mg PO DAILY PAULY Stop: 11/05/17 08:59 Last Admin: 09/13/17 11:14 Dose: Not Given Fluticasone Propionate (Flonase) 1 spr NS DAILY PRN PRN Reason: Congestion Stop: 11/04/17 20:58 Gabapentin (Neurontin) 300 mg PO TID PAULY Stop: 11/04/17 20:59 Last Admin: 09/13/17 09:44 Dose: 300 mg Hydroxyzine HCl (Atarax) 25 mg PO Q8HR PRN; Protocol PRN Reason: Itching Stop: 11/04/17 20:58 Levofloxacin (Levaquin Pb) 500 mg in 100 mls @ 100 mls/hr IV Q24HR PAULY Stop: 11/05/17 20:59 Last Admin: 09/12/17 23:30 Dose: 100 mls/hr Lactobacillus Rhamnosus (Culturelle 15b) 1 each PO DAILY PAULY Stop: 11/06/17 08:59 Last Admin: 09/13/17 09:45 Dose: Not Given Lorazepam (Ativan) 1 mg IVP Q6HR PRN; Protocol PRN Reason: Agitation Last Admin: 09/08/17 20:43 Dose: 1 mg Magnesium Hydroxide (Milk Of Magnesia) 30 ml PO HS PRN PRN Reason: Constipation Stop: 11/04/17 20:58 Miscellaneous (Vte Chemical Prophylaxis Screen/ Admission) 1 [facility] PRN PRN PRN Reason: PROTOCOL Stop: 11/05/17 08:14 Miscellaneous (Probiotic Screen) 1 [facility] PRN PRN PRN Reason: PROTOCOL Stop: 11/05/17 09:14 Ondansetron HCl (Zofran) 4 mg IV Q6H PRN PRN Reason: Nausea / Vomiting Stop: 11/04/17 20:05 Pantoprazole Sodium (Protonix) 40 mg PO DAILY PAULY Stop: 11/05/17 08:59 Last Admin: 09/13/17 09:44 Dose: 40 mg Zinc Sulfate (Zinc Sulfate) 220 mg PO DAILY [facility] Stop: 11/05/17 08:59 Last Admin: 09/13/17 09:45 Dose: Not Given General: alert HEENT: NC/AT, PERRLA Neck: Supple Lungs: CTAB Abdomen: soft, non-tender Neurological: alert - Procedures Procedures: Procedures Procedure Code Date AMPUTATION OF LOWER LEG 84362 09/05/17 DETACHMENT AT LEFT LOWER LEG, LOW, OPEN APPROACH [id number] 09/05/17 Internal Medicine Assmt/Plan - Assessment Assessment: s/p left bka sle gerd anxiety hyperlipidemia anxiety polyneuropathy chronic pain syndrome - Plan Plan: pain mgmt wound care ivabx continue current orders Nutritional Asmnt/Malnutr-PDOC - Dietary Evaluation Malnutrition Findings (Please click <Entered> for more info): Nutritional Asmnt/Malnutrition Start: 09/06/17 17: 07 Text: Status: Complete Freq: Document 09/06/17 17:08 ALEXANDER (Rec: 09/06/17 17:17 ALEXANDER [email or web address]) Nutritional Asmnt/Malnutrition Patient General Information Nutritional Screening High Risk Consult Diagnosis left foot cellulitis, left foot gangrene Pertinent Medical Hx/Surgical Hx sle, cellulitis left leg, gangrene, gerd, anxiety, hyperlipidemia, anxiety, polyneuropathy, chronic pain syndrom, amputation upper extremity rbka Subjective Information Consult received for wounds. Pt seen taking wound care at time of visit. Pt stated she did not like the lunch, she likes rice, pork chop. Adj BMI for amputation 20.3 Current Diet Order/ Nutrition Support KVNG Pertinent Medications vit C, os-won, colace, iron, culturelle, levaquin, protonix , piperacillin, zinc Pertinent Labs 2/ Na 133, Ca 8.5 Nutritional Hx/Data Height 5 ft 3 in Height (Calculated Centimeters) 160.0 Current Weight (lbs) 110 lb Weight (Calculated Kilograms) 49.9 Weight (Calculated Grams) 34666.2 [place] Body Weight 109 Body Mass Index (BMI) 19.5 Weight Status Approriate GI Symptoms GI Symptoms None Last BM none Difficult in: None Skin Integrity/Comment: skin tear to left foot and parietal Estimated Nutritional Goals BEE in Kcals: Using Current wt Calories/Kcals/Kg 27-32 Kcals Calculated 6210-6620 Protein: Using Current wt Protein g/k-1.2 Protein Calculated 50-60 Fluid: ml 4575-6662 Nutritional Problem 1. Problem Problem increased nutrition needs ( calorie and protein) Etiology increased metabolic demand for wound healing Signs/Symptoms: gangrened wound in left leg Malnutrition Alert Protein-Calorie Malnutrition N/A Is there a minimum of two criteria No selected? Query Text:Check all the applicable criteria. A minimum of two criteria are recommended for diagnosis of either severe or non-severe malnutrition. Intervention/Recommendation Comments 1. Continue with current diet as ordered. 2. Monitor PO intake, wt, labs and skin integrity 3. F/U as moderate risk in 3-5 days, 09/09-09/11 Expected Outcomes/Goals Expected Outcomes/Goals 1. PO intake to meet at least 75% of nutritional needs. 2. Wt stability, skin to remain intact, labs to approach WNL.
--- NOTE | 2017-09-13 12:35 | Infectious Disease Prog Note ---
Infectious Disease Subjective - Review of Systems Service Date: 09/13/17 Subjective: No change, no fever. Infectious Disease Objective - Results Result Diagrams: 09/09/17 05:40 09/07/17 05:50 Recent Labs: Laboratory Last Values WBC 9.1 Th/cmm (4.8-10.8) D 09/09/17 05:40 RBC 3.13 Mil/cmm (3.80-5.10) L 09/09/17 05:40 Hgb 10.0 gm/dL (12-16) L 09/09/17 05:40 Hct 30.9 % (41.0-60) L D 09/09/17 05:40 MCV 98.8 fl (81-100) 09/09/17 05:40 MCH 32.0 pg (27.0-31.0) H 09/09/17 05:40 MCHC Differential 32.4 pg (28.0-36.0) 09/09/17 05:40 RDW 13.3 % (11.5-20.0) 09/09/17 05:40 Plt Count 301 Th/cmm (150-400) 09/09/17 05:40 MPV 7.7 fl 09/09/17 05:40 Neutrophils % 69.9 % (40.0-80.0) 09/09/17 05:40 Lymphocytes % 14.3 % (20.0-50.0) L 09/09/17 05:40 Monocytes % 14.9 % (2.0-10.0) H 09/09/17 05:40 Eosinophils % 0.8 % (0.0-5.0) 09/09/17 05:40 Basophils % 0.1 % (0.0-2.0) 09/09/17 05:40 Sodium 138 mEq/L (136-145) 09/07/17 05:50 Potassium 5.5 mEq/L (3.5-5.1) H 09/07/17 05:50 Chloride 109 mEq/L (98-107) H 09/07/17 05:50 Carbon Dioxide 21.2 mEq/L (21.0-31.0) 09/07/17 05:50 Anion Gap 13.3 (7.0-16.0) 09/07/17 05:50 BUN 19 mg/dL (7-25) 09/07/17 05:50 Creatinine 0.6 mg/dL (0.6-1.2) 09/07/17 05:50 Est GFR ( Amer) > 60.0 ml/min (>90) 09/07/17 05:50 Est GFR (Non-Af Amer) > 60.0 ml/min 09/07/17 05:50 BUN/Creatinine Ratio 31.7 09/07/17 05:50 Glucose 79 mg/dL (70-105) 09/07/17 05:50 Whole Bld Lactic Acid 0.81 mmol/L (0.60-1.99) 09/05/17 15:00 Calcium 9.3 mg/dL (8.6-10.3) 09/07/17 05:50 Magnesium 2.0 mg/dL (1.9-2.7) 09/05/17 15:00 Total Bilirubin 0.3 mg/dL (0.3-1.0) 09/05/17 15:00 AST 21 U/L (13-39) 09/05/17 15:00 ALT 8 U/L (7-52) 09/05/17 15:00 Alkaline Phosphatase 129 U/L (34-104) H 09/05/17 15:00 C-Reactive Protein 3.4 mg/dL (0.0-0.9) H 09/05/17 15:00 B-Natriuretic Peptide 158.0 pg/mL (5.0-100.0) H 09/05/17 15:00 Total Protein 8.2 gm/dL (6.0-8.3) 09/05/17 15:00 Albumin 2.8 gm/dL (3.7-5.3) L 09/05/17 15:00 Globulin 5.4 gm/dL 09/05/17 15:00 Albumin/Globulin Ratio 0.5 (1.0-1.8) L 09/05/17 15:00 Triglycerides 62 mg/dL (<150) 09/05/17 15:00 Cholesterol 71 mg/dL (<200) 09/05/17 15:00 LDL Cholesterol Direct 16 mg/dL (75-193) L 09/05/17 15:00 HDL Cholesterol 42 mg/dL (23-92) 09/05/17 15:00 TSH 1.71 uIU/ml (0.34-5.60) 09/05/17 15:00 Urine Source CLEAN C 09/05/17 14:26 Urine Color YELLOW 09/05/17 14:26 Urine Clarity HAZY (CLEAR) 09/05/17 14:26 Urine pH 6.5 (4.6 - 8.0) 09/05/17 14:26 Ur Specific [place] 1.010 (1.005-1.030) 09/05/17 14:26 Urine Protein TRACE mg/dL (NEGATIVE) 09/05/17 14:26 Urine Glucose (UA) NEGATIVE mg/dL (NEGATIVE) 09/05/17 14:26 Urine Ketones NEGATIVE mg/dL (NEGATIVE) 09/05/17 14:26 Urine Blood SMALL (NEGATIVE) H 09/05/17 14:26 Urine Nitrate NEGATIVE (NEGATIVE) 09/05/17 14:26 Urine Bilirubin NEGATIVE (NEGATIVE) 09/05/17 14:26 Urine Urobilinogen 0.2 E.U./dL (0.2 - 1.0) 09/05/17 14:26 Ur Leukocyte Esterase SMALL (NEGATIVE) H 09/05/17 14:26 Urine RBC 5-10 /hpf (0-5) H 09/05/17 14:26 Urine WBC 6-10 /hpf (0-5) H 09/05/17 14:26 Ur Epithelial Cells OCCASIONAL /lpf (FEW) 09/05/17 14:26 Urine Bacteria FEW /hpf (NONE SEEN) 09/05/17 14:26 - Physical Exam Vitals and I&O: Vital Signs Temp 97.7 F 09/13/17 12:00 Pulse 77 09/13/17 12:00 Resp 18 09/13/17 12:00 BP 112/58 09/13/17 12:00 Pulse Ox 100 09/13/17 12:00 Intake & Output 09/12/17 09/13/17 09/13/17 18:59 06:59 18:59 Intake Total 800 200 Balance 800 200 Weight (lbs) 44.452 kg 44.452 kg Intake: Oral 800 200 Other: # Voids 2 # Bowel Movements 1 0 Active Medications: Current Medications Acetaminophen (Tylenol) 650 mg PO DAILY PAULY Stop: 11/05/17 08:59 Last Admin: 09/13/17 09:44 Dose: 650 mg Acetaminophen (Tylenol) 650 mg PO Q4HR PRN PRN Reason: Mild Pain or Fever >101 Stop: 11/04/17 20:58 Acetaminophen/Hydrocodone Bitart ([place] 10 Mg/325 Mg) 1 tab PO Q4H PRN PRN Reason: MODERATE PAIN Stop: 11/12/17 10:10 Albuterol Sulfate (Albuterol 2.5mg/3ml Neb Ud) 2.5 mg HHN Q6HR PRN PRN Reason: sob/WHEEZING/CONGESTION Stop: 11/04/17 20:58 Ascorbic Acid (Vitamin C) 500 mg PO DAILY PAULY Stop: 11/05/17 08:59 Last Admin: 09/13/17 09:45 Dose: Not Given Atorvastatin Calcium (Lipitor) 40 mg PO HS [facility] Stop: 11/04/17 20:59 Last Admin: 09/12/17 22:23 Dose: 40 mg Bisacodyl (Dulcolax 10 Mg Supp) 10 mg RC DAILY PRN PRN Reason: IF MOM INEFFECTIVE FOR CONSTIP Stop: 11/04/17 20:58 Calcium Carbonate (Os-Won) 500 mg PO DAILY PAULY Stop: 11/05/17 08:59 Last Admin: 09/13/17 09:45 Dose: Not Given Docusate Sodium (Colace) 100 mg PO DAILY PAULY Stop: 11/05/17 08:59 Last Admin: 09/13/17 09:45 Dose: Not Given Enalaprilat (Vasotec) 1.25 mg IVP Q4HR PRN PRN Reason: SBP ABOVE 160 Last Admin: 09/08/17 20:41 Dose: 1.25 mg Fentanyl (Duragesic 25 Mcg/Hr Tdm Patch) 1 patch TD Q72HR PAULY PRN Reason: Protocol Stop: 11/05/17 09:59 Last Admin: 09/12/17 11:10 Dose: 1 patch Ferrous Sulfate (Iron) 325 mg PO DAILY PAULY Stop: 11/05/17 08:59 Last Admin: 09/13/17 11:14 Dose: Not Given Fluticasone Propionate (Flonase) 1 spr NS DAILY PRN PRN Reason: Congestion Stop: 11/04/17 20:58 Gabapentin (Neurontin) 300 mg PO TID PAULY Stop: 11/04/17 20:59 Last Admin: 09/13/17 09:44 Dose: 300 mg Hydroxyzine HCl (Atarax) 25 mg PO Q8HR PRN; Protocol PRN Reason: Itching Stop: 11/04/17 20:58 Levofloxacin (Levaquin Pb) 500 mg in 100 mls @ 100 mls/hr IV Q24HR PAULY Stop: 11/05/17 20:59 Last Admin: 09/12/17 23:30 Dose: 100 mls/hr Lactobacillus Rhamnosus (Culturelle 15b) 1 each PO DAILY PAULY Stop: 11/06/17 08:59 Last Admin: 09/13/17 09:45 Dose: Not Given Lorazepam (Ativan) 1 mg IVP Q6HR PRN; Protocol PRN Reason: Agitation Last Admin: 09/08/17 20:43 Dose: 1 mg Magnesium Hydroxide (Milk Of Magnesia) 30 ml PO HS PRN PRN Reason: Constipation Stop: 11/04/17 20:58 Miscellaneous (Vte Chemical Prophylaxis Screen/ Admission) 1 ea PRN PRN PRN Reason: PROTOCOL Stop: 11/05/17 08:14 Miscellaneous (Probiotic Screen) 1 ea PRN PRN PRN Reason: PROTOCOL Stop: 11/05/17 09:14 Ondansetron HCl (Zofran) 4 mg IV Q6H PRN PRN Reason: Nausea / Vomiting Stop: 11/04/17 20:05 Pantoprazole Sodium (Protonix) 40 mg PO DAILY PAULY Stop: 11/05/17 08:59 Last Admin: 09/13/17 09:44 Dose: 40 mg Zinc Sulfate (Zinc Sulfate) 220 mg PO DAILY PAULY Stop: 11/05/17 08:59 Last Admin: 09/13/17 09:45 Dose: Not Given General: no acute distress, well developed, well nourished HEENT: atraumatic, normocephalic, PERRLA Neck: supple, no thyromegaly, no lymphadenopathy, no rigid, no lines Cardiovascular: S1S2, regular, no irregular, no systolic murmur, no thrills, no gallops, no pacemaker, no other Lungs: no clear to auscultation bilaterally, no clear to percussion, no crackles , no wheeze, no rhonchi Abdomen: soft, no tender, no distended, no mass, no rebound Extremities: other, no cyanosis, no clubbing Neurological: awake Skin: other (of all 4 extremities.) - Procedures Procedures: Procedures Procedure Code Date AMPUTATION OF LOWER LEG 80803 09/05/17 DETACHMENT AT LEFT LOWER LEG, LOW, OPEN APPROACH [id number] 09/05/17 Infectious Disease Assmt/Plan - Problem List Patient Problems: All Active Problems LEFT LOWER EXTREMITY GANGRENE (Acute) - Assessment Assessment: Left foot gangrene. Lupus s/p BKA Left. - Plan Plan: CPM. May dc antibiotics ,if ok with Dr Rodriguez. Wound care. Nutritional Asmnt/Malnutr-PDOC - Dietary Evaluation Malnutrition Findings (Please click <Entered> for more info): Nutritional Asmnt/Malnutrition Start: 09/06/17 17: 07 Text: Status: Complete Freq: Document 09/06/17 17:08 WOODROW (Rec: 09/06/17 17:17 WOODROW [email or web address]) Nutritional Asmnt/Malnutrition Patient General Information Nutritional Screening High Risk Consult Diagnosis left foot cellulitis, left foot gangrene Pertinent Medical Hx/Surgical Hx sle, cellulitis left leg, gangrene, gerd, anxiety, hyperlipidemia, anxiety, polyneuropathy, chronic pain syndrom, amputation upper extremity rbka Subjective Information Consult received for wounds. Pt seen taking wound care at time of visit. Pt stated she did not like the lunch, she likes rice, pork chop. Adj BMI for amputation 20.3 Current Diet Order/ Nutrition Support KVNG Pertinent Medications vit C, os-won, colace, iron, culturelle, levaquin, protonix , piperacillin, zinc Pertinent Labs 2/5 Na 133, Ca 8.5 Nutritional Hx/Data Height 1.6 m Height (Calculated Centimeters) 160.0 Current Weight (lbs) 49.895 kg Weight (Calculated Kilograms) 49.9 Weight (Calculated Grams) 79175.2 [place] Body Weight 109 Body Mass Index (BMI) 19.5 Weight Status Approriate GI Symptoms GI Symptoms None Last BM none Difficult in: None Skin Integrity/Comment: skin tear to left foot and parietal Estimated Nutritional Goals BEE in Kcals: Using Current wt Calories/Kcals/Kg 27-32 Kcals Calculated 3651-1405 Protein: Using Current wt Protein g/k-1.2 Protein Calculated 50-60 Fluid: ml 5328-3656 Nutritional Problem 1. Problem Problem increased nutrition needs ( calorie and protein) Etiology increased metabolic demand for wound healing Signs/Symptoms: gangrened wound in left leg Malnutrition Alert Protein-Calorie Malnutrition N/A Is there a minimum of two criteria No selected? Query Text:Check all the applicable criteria. A minimum of two criteria are recommended for diagnosis of either severe or non-severe malnutrition. Intervention/Recommendation Comments 1. Continue with current diet as ordered. 2. Monitor PO intake, wt, labs and skin integrity 3. F/U as moderate risk in 3-5 days, 09/09-09/11 Expected Outcomes/Goals Expected Outcomes/Goals 1. PO intake to meet at least 75% of nutritional needs. 2. Wt stability, skin to remain intact, labs to approach WNL.
--- NOTE | 2017-09-25 06:23 | Discharge Summary ---
DATE OF DISCHARGE: 09/13/2017 This is a 62-year-old unfortunate female patient, resident of [facility]. The patient had a left leg ulceration and dry gangrene and the patient has cellulitis of the left leg for which she was admitted and also she had a lesion on her head. Initial admitting diagnoses, the patient has left lower leg gangrene, history of systemic lupus erythematosus, history of gastroesophageal reflux disease, history of hyperlipidemia, polyneuropathy, chronic pain syndrome as well as a lesion on the head. The patient was admitted, was given IV antibiotics and had surgical consultation and Dr. Rodriguez saw the patient and arteriogram showed the patient had severe peripheral vascular disease and he decided to do the amputation of the distal area of the left lower leg and also the patient had excision of her lesion on the head, which was sent for pathology and the patient gradually improved and the patient's pain decreased. FINAL DIAGNOSES: Severe peripheral vascular disease, has a dry gangrene of the left lower leg, status post amputation, history of systemic lupus erythematosus, history of polyneuropathy, chronic pain syndrome, status post excision of a lesion on the head. The patient was sent back to [place] in stable condition, where I will follow the patient. MEDICATIONS: See the reconciliation sheet. ACTIVITY: As tolerated. PROGNOSIS: Guarded. JOB# [id number]
== END 2017-09-13 18:48 | disposition home or self-care (01) | DRG 305 ==
LOC: ER 13:46 → MSI 18:25 → TELE 21:45 → MSI 23:39
PROVIDERS: ADMIT Internal Medicine; ATTEND Internal Medicine
PROC: 0Y6J0Z3 Detachment at Left Lower Leg, Low, Open Approach (ICD-10-PCS; principal; 2017-09-08)
PROC: 2W3RX1Z Immobilization of Left Lower Leg using Splint (ICD-10-PCS; 2017-09-08)
PROC: 0JD00ZZ Extraction of Scalp Subcutaneous Tissue and Fascia, Open Approach (ICD-10-PCS; 2017-09-08)
DX: E11.52 Type 2 diabetes mellitus with diabetic peripheral angiopathy with gangrene (principal); E43 Unspecified severe protein-calorie malnutrition; R64 Cachexia; E11.42 Type 2 diabetes mellitus with diabetic polyneuropathy; M32.9 Systemic lupus erythematosus, unspecified; I96 Gangrene, not elsewhere classified; L03.116 Cellulitis of left lower limb; K21.9 Gastro-esophageal reflux disease without esophagitis; F41.9 Anxiety disorder, unspecified; E78.5 Hyperlipidemia, unspecified; G89.4 Chronic pain syndrome; F17.210 Nicotine dependence, cigarettes, uncomplicated; I25.10 Atherosclerotic heart disease of native coronary artery without angina pectoris; Z68.1 Body mass index [BMI] 19.9 or less, adult; I10 Essential (primary) hypertension; Z89.611 Acquired absence of right leg above knee; Z89.112 Acquired absence of left hand; Z89.111 Acquired absence of right hand; L98.499 Non-pressure chronic ulcer of skin of other sites with unspecified severity
CPT/HCPCS: 36415-UA; 71045-TC; 73630-TC-LT; 80048-TC; 80053-TC; 80061-TC; 81001-TC; 83605; 83735-TC; 83880-TC; 84443-TC; 85025-TC; 86141-TC; 88307-TC; 93005; 93926-LT-TC; 93971-TC-LT; 94760; J1170; J1956; J2060; J2250; J2543; J7030; V2790; X5958; Z7610